=== PATIENT | male | born 1945 | race Caucasian/White ===

== ENCOUNTER 2018-12-13 14:14 | Emergency (ER) | payer OTHER, MEDICARE ==
[~2018-12-13] VITALS: Ht 170.2 cm; Wt 61.2 kg
[~2018-12-13 14:14] MED LIST: ASP81TEC PO; ATEN25TA PO; ATOR40TA PO; HYDR-3714 PO; KCL10CCR PO; MECL-106 PO; MULT1TAB34 PO; OMEG1CAP26 PO; folic acid
--- OUTSIDE RECORDS SUMMARY | 2018-12-13 14:21 | XMS REPORT | CCD ---
Author Author [facility]na Yen Organization [facility] Address [address] [place] [address] Phone Care Team Providers Care Rn Access Name Role Phone PP Unavailable CCM Unavailable Summary Purpose Interface Exchange Insurance Providers Payer name Policy type / Coverage type Covered alliance party ID Effective Begin Date Effective End Date WPS Medicare Part B Medicare Part B [id number] 2018 Unknown [employer] Medicare Part B [id number] Unknown Family history Daughter Diagnosis Age At Onset defect Unknown Brother Diagnosis Age At Onset Hyperlipidemia Unknown Mother Diagnosis Age At Onset Heart Attack Unknown Arthritis Unknown Father Diagnosis Age At Onset Hyperlipidemia Unknown Social History Social History Element Codes Description Effective Dates Marital status Unknown Maryann 02/23/2018 Number of children Unknown 3 11/24/[address]: 5380424 Quit over 10 years ago 200411/24/2014 Allergies, Adverse Reactions, Alerts Substance Reaction Codes Entered Date Inactivated Date Status * NO KNOWN DRUG ALLERGIES Unknown 11/24/2014 No Inactive Date Active Past Medical History Illness Codes Condition Status Onset Date Resolved Date Chronic mucoid otitis media, right ear ICD-9: 381.20 ICD-10: H65.31 Active 02/23/2018 Unknown Essential (primary) hypertension ICD-9: 401.9 ICD-10: I10 Active 12/06/2015 Unknown Mixed hyperlipidemia ICD- 9: 272.2 ICD-10: E78.2 Active 12/06/2015 Unknown Other allergic rhinitis ICD-9: 477.8 ICD-10: J30.89 Active 08/14/2017 Unknown Occlusion and stenosis of bilateral carotid arteries ICD-9: 433.10 ICD-10: I65.23 Active 12/06/2015 Unknown Abnormal weight loss ICD- 9: 783.21 ICD-10: R63.4 Active 05/24/2015 Unknown Elevated prostate specific antigen [PSA] ICD-9: 790.93 ICD-10: R97.2 Active 05/24/2015 Unknown Hypertension Unknown Active 11/24/2014 Unknown ESSENTIAL HYPERTENSION ICD-9: 401.9 Active 11/23/2014 Unknown Routine medical exam ICD- 9: V70.0 Active 11/23/2014 Unknown Problems Condition Codes Effective Dates Condition Status Chronic mucoid otitis media, right ear ICD-9: 381.20 ICD-10: H65.31 02/23/2018 Active Essential (primary) hypertension ICD-9: 401.9 ICD-10: I10 12/06/2015 Active Mixed hyperlipidemia ICD- 9: 272.2 ICD-10: E78.2 12/06/2015 Active Other allergic rhinitis ICD-9: 477.8 ICD-10: J30.89 08/14/2017 Active Occlusion and stenosis of bilateral carotid arteries ICD-9: 433.10 ICD-10: I65.23 12/06/2015 Active Abnormal weight loss ICD- 9: 783.21 ICD-10: R63.4 05/24/2015 Active Elevated prostate specific antigen [PSA] ICD-9: 790.93 ICD-10: R97.2 05/24/2015 Active Hypertension Unknown 11/24/2014 Active ESSENTIAL HYPERTENSION ICD-9: 401.9 11/23/2014 Active Routine medical exam ICD- 9: V70.0 11/23/2014 Active Medications Medication Codes Instructions Start Date Stop Date Status Fill Instructions folic acid 1 mg tablet RxNorm: 403451 TAKE 1 TABLET EVERY DAY 11/24/2018 11/18/2019 Active cefdinir 300 mg capsule RxNorm: 285910 1 Capsule(s) PO BID 08/24/2018 09/02/2018 Inactive Lipitor 40 mg tablet RxNorm: 826721 TAKE 1 TABLET EVERY DAY 04/29/2018 04/23/2019 Active aspirin 81 mg tablet RxNorm: 250850 2 Tablet(s) PO daily 02/23/2018 No Stop Date Active Fish Oil 1,000 mg capsule RxNorm: 1 Capsule(s) PO BID 02/23/2018 No Stop Date Active Augmentin 875 mg-125 mg tablet RxNorm: 267360 1 Tablet(s) PO BID 02/23/2018 03/01/2018 Inactive Zyrtec 10 mg tablet RxNorm: 0188841 1 Tablet(s) PO daily 02/23/2018 03/24/2018 Inactive Protonix 40 mg tablet,delayed release RxNorm: 495206 TAKE 1 TABLET EVERY DAY 02/15/2018 02/09/2019 Active metoprolol succinate ER 50 mg tablet,extended release 24 hr RxNorm: 460755 TAKE 1 TABLET EVERY DAY 02/15/2018 02/09/2019 Active lisinopril 5 mg tablet RxNorm: 607846 TAKE 1 TABLET EVERY DAY 02/15/2018 02/09/2019 Active folic acid 1 mg tablet RxNorm: 386243 TAKE 1 TABLET EVERY DAY 02/08/2018 11/23/2018 Inactive Keflex 500 mg capsule RxNorm: 105525 1 Capsule(s) PO TID 09/21/2017 09/27/2017 Inactive Flonase Allergy Relief 50 mcg/actuation nasal spray,suspension RxNorm: 3639759 2 [place] NASAL daily 09/21/2017 10/04/2017 Inactive Keflex 500 mg capsule RxNorm: 822332 1 Capsule(s) PO TID 09/21/2017 09/20/2017 Inactive Flonase Allergy Relief 50 mcg/actuation nasal spray,suspension RxNorm: 4483106 2 [place] NASAL daily 09/21/2017 09/20/2017 Inactive Lipitor 40 mg tablet RxNorm: 897404 TAKE 1 TABLET EVERY DAY 03/23/2017 03/17/2018 Inactive lisinopril 5 mg tablet RxNorm: 421114 TAKE 1 TABLET EVERY DAY 01/22/2017 01/16/2018 Inactive Protonix 40 mg tablet,delayed release RxNorm: 979398 TAKE 1 TABLET EVERY DAY 01/22/2017 01/16/2018 Inactive metoprolol succinate ER 50 mg tablet,extended release 24 hr RxNorm: 238139 TAKE 1 TABLET EVERY DAY 01/22/2017 01/16/2018 Inactive folic acid 1 mg tablet RxNorm: 054170 TAKE 1 TABLET EVERY DAY 08/22/2016 08/16/2017 Inactive metoprolol succinate ER 50 mg tablet,extended release 24 hr RxNorm: 597446 1 Tablet(s) PO daily 03/17/2016 01/21/2017 Inactive Lipitor 40 mg tablet RxNorm: 280669 1 Tablet(s) PO daily 03/17/2016 03/11/2017 Inactive lisinopril 5 mg tablet RxNorm: 761262 1 Tablet(s) PO daily 03/17/2016 01/21/2017 Inactive Protonix 40 mg tablet,delayed release RxNorm: 093130 1 Tablet(s) PO daily 03/17/2016 01/21/2017 Inactive folic acid 1 mg tablet RxNorm: 225714 1 Tablet(s) PO daily 08/15/2015 08/08/2016 Inactive Lipitor 40 mg tablet RxNorm: 424656 1 Tablet(s) PO daily 08/15/2015 03/16/2016 Inactive Lipitor 40 mg tablet RxNorm: 495580 1 Tablet(s) PO daily 07/30/2015 08/14/2015 Inactive folic acid 1 mg tablet RxNorm: 501533 1 Tablet(s) PO daily 07/30/2015 08/14/2015 Inactive metoprolol succinate ER 50 mg tablet,extended release 24 hr RxNorm: 079567 1 Tablet(s) PO daily 07/27/2015 03/16/2016 Inactive Protonix 40 mg tablet,delayed release RxNorm: 263423 1 Tablet(s) PO daily 07/27/2015 03/16/2016 Inactive lisinopril 5 mg tablet RxNorm: 225094 1 Tablet(s) PO daily 07/27/2015 03/16/2016 Inactive folic acid 1 mg tablet RxNorm: 220226 1 Tablet(s) PO daily 07/27/2015 07/29/2015 Inactive Protonix 40 mg tablet,delayed release RxNorm: 356629 1 Tablet(s) PO daily 03/12/2015 07/26/2015 Inactive metoprolol succinate ER 50 mg tablet,extended release 24 hr RxNorm: 851489 1 Tablet(s) PO daily 03/12/2015 07/26/2015 Inactive folic acid 1 mg tablet RxNorm: 075178 1 Tablet(s) PO daily 03/12/2015 07/26/2015 Inactive lisinopril 5 mg tablet RxNorm: 773995 1 Tablet(s) PO daily 03/12/2015 07/26/2015 Inactive Protonix 40 mg tablet,delayed release RxNorm: 955271 1 Tablet(s) PO daily 01/31/2015 03/11/2015 Inactive metoprolol succinate ER 50 mg tablet,extended release 24 hr RxNorm: 517141 1 Tablet(s) PO daily 01/31/2015 01/30/2015 Inactive lisinopril 5 mg tablet RxNorm: 466120 1 Tablet(s) PO daily 01/31/2015 03/11/2015 Inactive metoprolol succinate ER 50 mg tablet,extended release 24 hr RxNorm: 903271 1 Tablet(s) PO daily 01/31/2015 03/11/2015 Inactive folic acid 1 mg tablet RxNorm: 883874 1 Tablet(s) PO daily 01/31/2015 03/11/2015 Inactive Stress tablet RxNorm: oral No Start Date Active Co Q-10 50 mg capsule RxNorm: 350528 1 Capsule(s) PO BID No Start Date Active Fish Oil 1,000 mg capsule RxNorm: 1 Capsule(s) PO daily No Start Date 02/22/2018 Inactive Protonix 40 mg tablet,delayed release RxNorm: 013086 1 Tablet(s) PO daily No Start Date 01/30/2015 Inactive lisinopril 5 mg tablet RxNorm: 194438 1 Tablet(s) PO daily No Start Date 01/30/2015 Inactive aspirin 81 mg tablet RxNorm: 093497 1 Tablet(s) PO daily No Start Date 02/22/2018 Inactive folic acid 1 mg tablet RxNorm: 426059 1 Tablet(s) PO daily No Start Date 01/30/2015 Inactive metoprolol tartrate 50 mg tablet RxNorm: 181968 1 Tablet(s) PO daily No Start Date 01/31/2015 Inactive Lipitor 40 mg tablet RxNorm: 584703 1 Tablet(s) PO daily No Start Date 07/29/2015 Inactive Medication Administered No Medication Administered data Immunizations No Immunization data Assessments Condition Codes Effective Dates Essential (primary) hypertension ICD-10: I10 ICD-9: 401.9 08/24/2018 Mixed hyperlipidemia ICD-10: E78.2 ICD-9: 272.2 08/24/2018 Chronic mucoid otitis media, right ear ICD-10: H65.31 ICD-9: 381.20 08/24/2018 Other allergic rhinitis ICD-10: J30.89 ICD-9: 477.8 02/23/2018 Occlusion and stenosis of bilateral carotid arteries ICD-10: I65.23 ICD-9: 433.10 12/07/2015 Abnormal weight loss ICD-10: R63.4 ICD-9: 783.21 05/25/2015 Elevated prostate specific antigen [PSA] ICD-10: R97.2 ICD-9: 790.93 05/25/2015 ESSENTIAL HYPERTENSION ICD-9: 401.9 11/24/2014 Routine medical exam ICD-9: V70.0 11/24/2014 Reason For Visit Reason For Visit Effective Dates Notes hypertension 08/24/2018 hypertension 02/23/2018 hypertension 08/14/2017 hypertension 12/18/2016 hypertension 06/13/2016 hypertension 12/07/2015 hypertension 05/25/2015 hypertension 11/24/2014 Results Observation Observation Code Item Item Code Result Date Cbc With Differential Ord2 WBC 6.07 K/ul 02/23/2018 Cbc With Differential Ord2 RBC 4.35 M/ul 02/23/2018 Cbc With Differential Ord2 HGB 13.6 g/dl 02/23/2018 Cbc With Differential Ord2 HCT 41.2 % 02/23/2018 Cbc With Differential Ord2 Neut% 60.6 % 02/23/2018 Cbc With Differential Ord2 MCV 94.7 fl 02/23/2018 Cbc With Differential Ord2 Lymph% 28.2 % 02/23/2018 Cbc With Differential Ord2 MCH 31.3 pg 02/23/2018 Cbc With Differential Ord2 [place]% 8.9 % 02/23/2018 Cbc With Differential Ord2 MCHC 33.0 pg 02/23/2018 Cbc With Differential Ord2 Eos% 2.1 % 02/23/2018 Cbc With Differential Ord2 PLT 160 K/ul 02/23/2018 Cbc With Differential Ord2 Baso% 0.2 % 02/23/2018 Cbc With Differential Ord2 RDW 13.6 % 02/23/2018 Cbc With Differential Ord2 Neut ABS# 3.68 K/ul 02/23/2018 Cbc With Differential Ord2 Lymph ABS# 1.71 K/ul 02/23/2018 Cbc With Differential Ord2 [place] ABS# 0.5 K/ul 02/23/2018 Cbc With Differential Ord2 Eos ABS# 0.1 K/ul 02/23/2018 Cbc With Differential Ord2 Baso ABS# 0.0 K/ul 02/23/2018 Tsh Ord6 TSH (3rd IS) 2.67 uIU/mL 02/23/2018 Lipid Ord30 CHOL 131 mg/dL 02/23/2018 Lipid Ord30 HDL 56.0 mg/dl 02/23/2018 Lipid Ord30 TRIG 67 mg/dL 02/23/2018 Lipid Ord30 LDL 62 mg/dL 02/23/2018 Lipid Ord30 C/HDL 2.3 Ratio 02/23/2018 Comp Metabolic Kxl242 NA 141 mEq/L 02/23/2018 Comp Metabolic Qjn607 K 4.6 mEq/L 02/23/2018 Comp Metabolic Dco286 CL 105 mEq/L 02/23/2018 Comp Metabolic Bmf809 CO2 27.0 mEq/L 02/23/2018 Comp Metabolic Hli615 ANION GAP 14 02/23/2018 Comp Metabolic Xad009 GLUCOSE 90 mg/dL 02/23/2018 Comp Metabolic Dlu498 Creat 1.5 mg/dL 02/23/2018 Comp Metabolic Ikb969 eGFR 51 ml/min/1.73m2 02/23/2018 Comp Metabolic Yrf305 BUN 31 mg/dL 02/23/2018 Comp Metabolic Zzo962 B/C Ratio 21.4 Ratio 02/23/2018 Comp Metabolic Fnj982 CALCIUM 9.6 mg/dL 02/23/2018 Comp Metabolic Dgg536 ALK PHOS 62 U/L 02/23/2018 Comp Metabolic Wpk800 AST(SGOT) 20 U/L 02/23/2018 Comp Metabolic Xeg084 ALT(SGPT) 17 U/L 02/23/2018 Comp Metabolic Yza942 BILI T 0.8 mg/dL 02/23/2018 Comp Metabolic Usy303 ALBUMIN 4.3 g/dL 02/23/2018 Comp Metabolic Tvh343 TPRO 6.4 g/dL 02/23/2018 Comp Metabolic Qmv544 GLOB 2.1 g/dL 02/23/2018 Comp Metabolic Qvm926 A/G Ratio 2.0 Ratio 02/23/2018 Comp Metabolic Kmh208 Osmo 287 mOsmo 02/23/2018 Lipid Ord30 CHOL 118 mg/dL 12/18/2016 Lipid Ord30 HDL 52.0 mg/dl 12/18/2016 Lipid Ord30 TRIG 64 mg/dL 12/18/2016 Lipid Ord30 LDL 53 mg/dL 12/18/2016 Lipid Ord30 C/HDL 2.3 Ratio 12/18/2016 Cbc With Differential Ord2 WBC 6.46 K/ul 12/18/2016 Cbc With Differential Ord2 RBC 4.28 M/ul 12/18/2016 Cbc With Differential Ord2 HGB 13.7 g/dl 12/18/2016 Cbc With Differential Ord2 HCT 40.2 % 12/18/2016 Cbc With Differential Ord2 Neut% 60.8 % 12/18/2016 Cbc With Differential Ord2 MCV 93.9 fl 12/18/2016 Cbc With Differential Ord2 Lymph% 27.6 % 12/18/2016 Cbc With Differential Ord2 MCH 32.0 pg 12/18/2016 Cbc With Differential Ord2 [place]% 7.9 % 12/18/2016 Cbc With Differential Ord2 MCHC 34.1 pg 12/18/2016 Cbc With Differential Ord2 Eos% 3.4 % 12/18/2016 Cbc With Differential Ord2 PLT 156 K/ul 12/18/2016 Cbc With Differential Ord2 Baso% 0.3 % 12/18/2016 Cbc With Differential Ord2 RDW 13.6 % 12/18/2016 Cbc With Differential Ord2 Neut ABS# 3.93 K/ul 12/18/2016 Cbc With Differential Ord2 Lymph ABS# 1.78 K/ul 12/18/2016 Cbc With Differential Ord2 [place] ABS# 0.5 K/ul 12/18/2016 Cbc With Differential Ord2 Eos ABS# 0.2 K/ul 12/18/2016 Cbc With Differential Ord2 Baso ABS# 0.0 K/ul 12/18/2016 Comp Metabolic Vbe795 NA 140 mEq/L 12/18/2016 Comp Metabolic Ryh511 K 4.4 mEq/L 12/18/2016 Comp Metabolic Clz553 CL 105 mEq/L 12/18/2016 Comp Metabolic Ksh130 CO2 27.0 mEq/L 12/18/2016 Comp Metabolic Xfi066 ANION GAP 12 12/18/2016 Comp Metabolic Mwh934 GLUCOSE 89 mg/dL 12/18/2016 Comp Metabolic Etg873 Creat 1.4 mg/dL 12/18/2016 Comp Metabolic Cbt040 eGFR 51 ml/min/1.73m2 12/18/2016 Comp Metabolic New794 BUN 24 mg/dL 12/18/2016 Comp Metabolic Wri033 B/C Ratio 16.7 Ratio 12/18/2016 Comp Metabolic Vct605 CALCIUM 9.3 mg/dL 12/18/2016 Comp Metabolic Jzp575 ALK PHOS 59 U/L 12/18/2016 Comp Metabolic Rlb554 AST(SGOT) 18 U/L 12/18/2016 Comp Metabolic Rds994 ALT(SGPT) 15 U/L 12/18/2016 Comp Metabolic Fiy719 BILI T 0.8 mg/dL 12/18/2016 Comp Metabolic Zly414 ALBUMIN 4.0 g/dL 12/18/2016 Comp Metabolic Iow914 TPRO 6.2 g/dL 12/18/2016 Comp Metabolic Wiy891 GLOB 2.2 g/dL 12/18/2016 Comp Metabolic Wkj711 A/G Ratio 1.8 Ratio 12/18/2016 Comp Metabolic Zda946 Osmo 283 mOsmo 12/18/2016 Tsh Ord6 hTSH II 1.98 uIU/mL 12/18/2016 Comp Metabolic Pwi878 NA 139 mEq/L 06/13/2016 Comp Metabolic Jll511 K 4.5 mEq/L 06/13/2016 Comp Metabolic Gkr206 CL 104 mEq/L 06/13/2016 Comp Metabolic Xix143 CO2 29.0 mEq/L 06/13/2016 Comp Metabolic Vdf495 ANION GAP 11 06/13/2016 Comp Metabolic Cst937 GLUCOSE 92 mg/dL 06/13/2016 Comp Metabolic Mlj810 Creat 1.3 mg/dL 06/13/2016 Comp Metabolic Mgg617 eGFR 58 ml/min/1.73m2 06/13/2016 Comp Metabolic Gnm828 BUN 24 mg/dL 06/13/2016 Comp Metabolic Ack621 B/C Ratio 18.6 Ratio 06/13/2016 Comp Metabolic Idw683 CALCIUM 9.9 mg/dL 06/13/2016 Comp Metabolic Lpa766 ALK PHOS 65 U/L 06/13/2016 Comp Metabolic Heo892 AST(SGOT) 19 U/L 06/13/2016 Comp Metabolic Wgd550 ALT(SGPT) 19 U/L 06/13/2016 Comp Metabolic Trv085 BILI T 0.7 mg/dL 06/13/2016 Comp Metabolic Gyv553 ALBUMIN 4.5 g/dL 06/13/2016 Comp Metabolic Jnc443 TPRO 7.0 g/dL 06/13/2016 Comp Metabolic Dor300 GLOB 2.5 g/dL 06/13/2016 Comp Metabolic Xib379 A/G Ratio 1.8 Ratio 06/13/2016 Comp Metabolic Nqy987 Osmo 281 mOsmo 06/13/2016 Cbc With Differential Ord2 WBC 6.59 K/ul 06/13/2016 Cbc With Differential Ord2 RBC 4.52 M/ul 06/13/2016 Cbc With Differential Ord2 HGB 14.3 g/dl 06/13/2016 Cbc With Differential Ord2 HCT 42.5 % 06/13/2016 Cbc With Differential Ord2 Neut% 58.6 % 06/13/2016 Cbc With Differential Ord2 MCV 94.0 fl 06/13/2016 Cbc With Differential Ord2 Lymph% 29.3 % 06/13/2016 Cbc With Differential Ord2 MCH 31.6 pg 06/13/2016 Cbc With Differential Ord2 [place]% 8.8 % 06/13/2016 Cbc With Differential Ord2 MCHC 33.6 pg 06/13/2016 Cbc With Differential Ord2 Eos% 3.0 % 06/13/2016 Cbc With Differential Ord2 PLT 161 K/ul 06/13/2016 Cbc With Differential Ord2 Baso% 0.3 % 06/13/2016 Cbc With Differential Ord2 RDW 13.6 % 06/13/2016 Cbc With Differential Ord2 Neut ABS# 3.86 K/ul 06/13/2016 Cbc With Differential Ord2 Lymph ABS# 1.93 K/ul 06/13/2016 Cbc With Differential Ord2 [place] ABS# 0.6 K/ul 06/13/2016 Cbc With Differential Ord2 Eos ABS# 0.2 K/ul 06/13/2016 Cbc With Differential Ord2 Baso ABS# 0.0 K/ul 06/13/2016 Lipid Ord30 CHOL 119 mg/dL 06/13/2016 Lipid Ord30 HDL 59.0 mg/dl 06/13/2016 Lipid Ord30 TRIG 74 mg/dL 06/13/2016 Lipid Ord30 LDL 45 mg/dL 06/13/2016 Lipid Ord30 C/HDL 2.0 Ratio 06/13/2016 Tsh Ord6 hTSH II 2.38 uIU/mL 06/13/2016 Cbc With Differential Ord2 WBC 5.57 K/ul 12/07/2015 Cbc With Differential Ord2 RBC 4.69 M/ul 12/07/2015 Cbc With Differential Ord2 HGB 14.6 g/dl 12/07/2015 Cbc With Differential Ord2 HCT 43.9 % 12/07/2015 Cbc With Differential Ord2 Neut% 60.6 % 12/07/2015 Cbc With Differential Ord2 MCV 93.6 fl 12/07/2015 Cbc With Differential Ord2 Lymph% 29.3 % 12/07/2015 Cbc With Differential Ord2 MCH 31.1 pg 12/07/2015 Cbc With Differential Ord2 [place]% 7.7 % 12/07/2015 Cbc With Differential Ord2 MCHC 33.3 pg 12/07/2015 Cbc With Differential Ord2 Eos% 2.2 % 12/07/2015 Cbc With Differential Ord2 PLT 167 K/ul 12/07/2015 Cbc With Differential Ord2 Baso% 0.2 % 12/07/2015 Cbc With Differential Ord2 RDW 13.7 % 12/07/2015 Cbc With Differential Ord2 Neut ABS# 3.38 K/ul 12/07/2015 Cbc With Differential Ord2 Lymph ABS# 1.63 K/ul 12/07/2015 Cbc With Differential Ord2 [place] ABS# 0.4 K/ul 12/07/2015 Cbc With Differential Ord2 Eos ABS# 0.1 K/ul 12/07/2015 Cbc With Differential Ord2 Baso ABS# 0.0 K/ul 12/07/2015 Tsh Ord6 hTSH II 3.01 uIU/mL 12/07/2015 Lipid Ord30 CHOL 117 mg/dL 12/07/2015 Lipid Ord30 HDL 53.0 mg/dl 12/07/2015 Lipid Ord30 TRIG 68 mg/dL 12/07/2015 Lipid Ord30 LDL 50 mg/dL 12/07/2015 Lipid Ord30 C/HDL 2.2 Ratio 12/07/2015 Comp Metabolic But347 NA 140 mEq/L 12/07/2015 Comp Metabolic Wfc268 K 4.5 mEq/L 12/07/2015 Comp Metabolic Krk649 CL 106 mEq/L 12/07/2015 Comp Metabolic Gtg086 CO2 27.0 mEq/L 12/07/2015 Comp Metabolic Ojg920 ANION GAP 12 12/07/2015 Comp Metabolic Gbf781 GLUCOSE 92 mg/dL 12/07/2015 Comp Metabolic Gme643 Creat 1.3 mg/dL 12/07/2015 Comp Metabolic Uxo550 eGFR 57 ml/min/1.73m2 12/07/2015 Comp Metabolic Ekf863 BUN 28 mg/dL 12/07/2015 Comp Metabolic Brl807 B/C Ratio 21.2 Ratio 12/07/2015 Comp Metabolic Pcc791 CALCIUM 10.0 mg/dL 12/07/2015 Comp Metabolic Oqs124 ALK PHOS 58 U/L 12/07/2015 Comp Metabolic Ngl746 AST(SGOT) 19 U/L 12/07/2015 Comp Metabolic Aay115 ALT(SGPT) 15 U/L 12/07/2015 Comp Metabolic Wnt594 BILI T 0.9 mg/dL 12/07/2015 Comp Metabolic Lva288 ALBUMIN 4.3 g/dL 12/07/2015 Comp Metabolic Afk468 TPRO 6.8 g/dL 12/07/2015 Comp Metabolic Guq217 GLOB 2.5 g/dL 12/07/2015 Comp Metabolic Gbw858 A/G Ratio 1.8 Ratio 12/07/2015 Comp Metabolic Iim860 Osmo 285 mOsmo 12/07/2015 Cbc With Differential Ord2 WBC 5.44 K/ul 07/26/2015 Cbc With Differential Ord2 RBC 4.79 M/ul 07/26/2015 Cbc With Differential Ord2 HGB 14.8 g/dl 07/26/2015 Cbc With Differential Ord2 HCT 44.5 % 07/26/2015 Cbc With Differential Ord2 Neut% 57.9 % 07/26/2015 Cbc With Differential Ord2 MCV 92.9 fl 07/26/2015 Cbc With Differential Ord2 Lymph% 30.5 % 07/26/2015 Cbc With Differential Ord2 MCH 30.9 pg 07/26/2015 Cbc With Differential Ord2 [place]% 8.6 % 07/26/2015 Cbc With Differential Ord2 MCHC 33.3 pg 07/26/2015 Cbc With Differential Ord2 Eos% 2.8 % 07/26/2015 Cbc With Differential Ord2 PLT 163 K/ul 07/26/2015 Cbc With Differential Ord2 Baso% 0.2 % 07/26/2015 Cbc With Differential Ord2 RDW 13.9 % 07/26/2015 Cbc With Differential Ord2 Neut ABS# 3.15 K/ul 07/26/2015 Cbc With Differential Ord2 Lymph ABS# 1.66 K/ul 07/26/2015 Cbc With Differential Ord2 [place] ABS# 0.5 K/ul 07/26/2015 Cbc With Differential Ord2 Eos ABS# 0.2 K/ul 07/26/2015 Cbc With Differential Ord2 Baso ABS# 0.0 K/ul 07/26/2015 Cbc With Differential Ord2 New Analyzer Notice Please note new ref ranges starting 05-16-2015 due to implemntation of new five part differential hematolgy analyzer. 07/26/2015 Lipid Ord30 CHOL 120 mg/dL 05/25/2015 Lipid Ord30 HDL 48.0 mg/dl 05/25/2015 Lipid Ord30 TRIG 61 mg/dL 05/25/2015 Lipid Ord30 LDL 60 mg/dL 05/25/2015 Lipid Ord30 C/HDL 2.5 Ratio 05/25/2015 Tsh Ord6 hTSH II 3.01 uIU/mL 05/25/2015 Comp Metabolic Nht280 NA 140 mEq/L 05/25/2015 Comp Metabolic Bte785 K 4.3 mEq/L 05/25/2015 Comp Metabolic Lpk604 CL 104 mEq/L 05/25/2015 Comp Metabolic Wbh546 CO2 26.0 mEq/L 05/25/2015 Comp Metabolic Jat924 ANION GAP 14 05/25/2015 Comp Metabolic Aqq243 GLUCOSE 77 mg/dL 05/25/2015 Comp Metabolic Lky537 Creat 1.2 mg/dL 05/25/2015 Comp Metabolic Lrw532 eGFR 62 ml/min/1.73m2 05/25/2015 Comp Metabolic Uhu463 BUN 23 mg/dL 05/25/2015 Comp Metabolic Ork816 B/C Ratio 18.7 Ratio 05/25/2015 Comp Metabolic Wsc979 CALCIUM 9.4 mg/dL 05/25/2015 Comp Metabolic Ohp440 ALK PHOS 67 U/L 05/25/2015 Comp Metabolic Vmu468 AST(SGOT) 20 U/L 05/25/2015 Comp Metabolic Vih046 ALT(SGPT) 20 U/L 05/25/2015 Comp Metabolic Pbi036 BILI T 0.7 mg/dL 05/25/2015 Comp Metabolic Vxv994 ALBUMIN 4.2 g/dL 05/25/2015 Comp Metabolic Ksf491 TPRO 6.5 g/dL 05/25/2015 Comp Metabolic Gyb449 GLOB 2.3 g/dL 05/25/2015 Comp Metabolic Zqx558 A/G Ratio 1.8 Ratio 05/25/2015 Comp Metabolic Pwu299 Osmo 282 mOsmo 05/25/2015 Cbc With Differential Ord2 WBC 5.72 K/ul 05/25/2015 Cbc With Differential Ord2 RBC 4.43 M/ul 05/25/2015 Cbc With Differential Ord2 HGB 13.7 g/dl 05/25/2015 Cbc With Differential Ord2 HCT 41.3 % 05/25/2015 Cbc With Differential Ord2 Neut% 60.3 % 05/25/2015 Cbc With Differential Ord2 MCV 93.2 fl 05/25/2015 Cbc With Differential Ord2 Lymph% 29.7 % 05/25/2015 Cbc With Differential Ord2 MCH 30.9 pg 05/25/2015 Cbc With Differential Ord2 [place]% 7.2 % 05/25/2015 Cbc With Differential Ord2 MCHC 33.2 pg 05/25/2015 Cbc With Differential Ord2 Eos% 2.3 % 05/25/2015 Cbc With Differential Ord2 PLT 175 K/ul 05/25/2015 Cbc With Differential Ord2 Baso% 0.5 % 05/25/2015 Cbc With Differential Ord2 RDW 14.0 % 05/25/2015 Cbc With Differential Ord2 Neut ABS# 3.45 K/ul 05/25/2015 Cbc With Differential Ord2 Lymph ABS# 1.70 K/ul 05/25/2015 Cbc With Differential Ord2 [place] ABS# 0.4 K/ul 05/25/2015 Cbc With Differential Ord2 Eos ABS# 0.1 K/ul 05/25/2015 Cbc With Differential Ord2 Baso ABS# 0.0 K/ul 05/25/2015 Cbc With Differential Ord2 New Analyzer Notice Please note new ref ranges starting 05-16-2015 due to implemntation of new five part differential hematolgy analyzer. 05/25/2015 Review of Systems System Result Effective Dates Constitutional No recent illness 08/24/2018 Constitutional No anorexia 08/24/2018 Constitutional No night sweats 08/24/2018 Constitutional No chills 08/24/2018 Constitutional No diaphoresis 08/24/2018 Constitutional No fatigue 08/24/2018 Constitutional No fever 08/24/2018 Constitutional No insomnia 08/24/2018 Constitutional No malaise 08/24/2018 Constitutional No weight loss 08/24/2018 Constitutional No weight gain 08/24/2018 Eyes No eye discharge 08/24/2018 Eyes No eye erythema 08/24/2018 Ears/Nose/Throat/Neck No dizziness 08/24/2018 Ears/Nose/Throat/Neck No headache 08/24/2018 Ears/Nose/Throat/Neck nasal allergies 08/24/2018 Ears/Nose/Throat/Neck otalgia 08/24/2018 Cardiovascular No chest pain/pressure 08/24/2018 Cardiovascular No dyspnea 08/24/2018 Cardiovascular No edema 08/24/2018 Respiratory No productive sputum 08/24/2018 Respiratory No chest congestion 08/24/2018 Respiratory cough 08/24/2018 Gastrointestinal No abdominal pain 08/24/2018 Gastrointestinal No constipation 08/24/2018 Gastrointestinal No diarrhea 08/24/2018 Genitourinary/Nephrology No dysuria 08/24/2018 Musculoskeletal arthralgia(s) 08/24/2018 Musculoskeletal No joint complaint 08/24/2018 Dermatologic No rash 08/24/2018 Dermatologic No sores 08/24/2018 Neurologic No alteration of consciousness 08/24/2018 Psychiatric No anxiety 08/24/2018 Psychiatric No depression 08/24/2018 Endocrine No dry or coarse skin 08/24/2018 Constitutional No recent illness 02/23/2018 Constitutional No anorexia 02/23/2018 Constitutional No night sweats 02/23/2018 Constitutional No chills 02/23/2018 Constitutional No diaphoresis 02/23/2018 Constitutional No fatigue 02/23/2018 Constitutional No fever 02/23/2018 Constitutional No insomnia 02/23/2018 Constitutional No malaise 02/23/2018 Constitutional No weight loss 02/23/2018 Constitutional No weight gain 02/23/2018 Eyes No eye discharge 02/23/2018 Eyes No eye erythema 02/23/2018 Ears/Nose/Throat/Neck No dizziness 02/23/2018 Ears/Nose/Throat/Neck No headache 02/23/2018 Ears/Nose/Throat/Neck nasal allergies 02/23/2018 Ears/Nose/Throat/Neck otalgia 02/23/2018 Cardiovascular No chest pain/pressure 02/23/2018 Cardiovascular No dyspnea 02/23/2018 Cardiovascular No edema 02/23/2018 Respiratory No productive sputum 02/23/2018 Respiratory No chest congestion 02/23/2018 Gastrointestinal No abdominal pain 02/23/2018 Gastrointestinal No constipation 02/23/2018 Gastrointestinal No diarrhea 02/23/2018 Genitourinary/Nephrology No dysuria 02/23/2018 Musculoskeletal No joint complaint 02/23/2018 Dermatologic No rash 02/23/2018 Dermatologic No sores 02/23/2018 Neurologic No alteration of consciousness 02/23/2018 Psychiatric No anxiety 02/23/2018 Psychiatric No depression 02/23/2018 Endocrine No dry or coarse skin 02/23/2018 Respiratory cough 02/23/2018 Musculoskeletal arthralgia(s) 02/23/2018 Constitutional No recent illness 08/14/2017 Constitutional No anorexia 08/14/2017 Constitutional No night sweats 08/14/2017 Constitutional No chills 08/14/2017 Constitutional No diaphoresis 08/14/2017 Constitutional No fatigue 08/14/2017 Constitutional No fever 08/14/2017 Constitutional No insomnia 08/14/2017 Constitutional No malaise 08/14/2017 Constitutional No weight loss 08/14/2017 Constitutional No weight gain 08/14/2017 Eyes No eye discharge 08/14/2017 Eyes No eye erythema 08/14/2017 Ears/Nose/Throat/Neck No dizziness 08/14/2017 Ears/Nose/Throat/Neck No headache 08/14/2017 Cardiovascular No chest pain/pressure 08/14/2017 Cardiovascular No dyspnea 08/14/2017 Cardiovascular No edema 08/14/2017 Respiratory No productive sputum 08/14/2017 Respiratory No chest congestion 08/14/2017 Gastrointestinal No abdominal pain 08/14/2017 Gastrointestinal No constipation 08/14/2017 Gastrointestinal No diarrhea 08/14/2017 Genitourinary/Nephrology No dysuria 08/14/2017 Musculoskeletal No joint complaint 08/14/2017 Dermatologic No rash 08/14/2017 Dermatologic No sores 08/14/2017 Neurologic No alteration of consciousness 08/14/2017 Psychiatric No anxiety 08/14/2017 Psychiatric No depression 08/14/2017 Endocrine No dry or coarse skin 08/14/2017 Ears/Nose/Throat/Neck nasal allergies 08/14/2017 Ears/Nose/Throat/Neck otalgia 08/14/2017 Constitutional No recent illness 12/18/2016 Constitutional No anorexia 12/18/2016 Constitutional No night sweats 12/18/2016 Constitutional No chills 12/18/2016 Constitutional No diaphoresis 12/18/2016 Constitutional No fatigue 12/18/2016 Constitutional No fever 12/18/2016 Constitutional No insomnia 12/18/2016 Constitutional No malaise 12/18/2016 Constitutional No weight loss 12/18/2016 Constitutional No weight gain 12/18/2016 Eyes No eye discharge 12/18/2016 Eyes No eye erythema 12/18/2016 Ears/Nose/Throat/Neck No dizziness 12/18/2016 Ears/Nose/Throat/Neck No headache 12/18/2016 Cardiovascular No chest pain/pressure 12/18/2016 Cardiovascular No dyspnea 12/18/2016 Cardiovascular No edema 12/18/2016 Respiratory No productive sputum 12/18/2016 Respiratory No chest congestion 12/18/2016 Gastrointestinal No abdominal pain 12/18/2016 Gastrointestinal No constipation 12/18/2016 Gastrointestinal No diarrhea 12/18/2016 Genitourinary/Nephrology No dysuria 12/18/2016 Musculoskeletal No joint complaint 12/18/2016 Dermatologic No rash 12/18/2016 Dermatologic No sores 12/18/2016 Neurologic No alteration of consciousness 12/18/2016 Psychiatric No anxiety 12/18/2016 Psychiatric No depression 12/18/2016 Endocrine No dry or coarse skin 12/18/2016 Constitutional No recent illness 06/13/2016 Constitutional No anorexia 06/13/2016 Constitutional No night sweats 06/13/2016 Constitutional No chills 06/13/2016 Constitutional No diaphoresis 06/13/2016 Constitutional No fatigue 06/13/2016 Constitutional No fever 06/13/2016 Constitutional No insomnia 06/13/2016 Constitutional No malaise 06/13/2016 Constitutional No weight loss 06/13/2016 Constitutional No weight gain 06/13/2016 Eyes No eye discharge 06/13/2016 Eyes No eye erythema 06/13/2016 Ears/Nose/Throat/Neck No dizziness 06/13/2016 Ears/Nose/Throat/Neck No headache 06/13/2016 Cardiovascular No chest pain/pressure 06/13/2016 Cardiovascular No dyspnea 06/13/2016 Cardiovascular No edema 06/13/2016 Respiratory No productive sputum 06/13/2016 Respiratory No chest congestion 06/13/2016 Gastrointestinal No abdominal pain 06/13/2016 Gastrointestinal No constipation 06/13/2016 Gastrointestinal No diarrhea 06/13/2016 Genitourinary/Nephrology No dysuria 06/13/2016 Musculoskeletal No joint complaint 06/13/2016 Dermatologic No rash 06/13/2016 Dermatologic No sores 06/13/2016 Neurologic No alteration of consciousness 06/13/2016 Psychiatric No anxiety 06/13/2016 Psychiatric No depression 06/13/2016 Endocrine No dry or coarse skin 06/13/2016 Constitutional No recent illness 12/07/2015 Constitutional No anorexia 12/07/2015 Constitutional No night sweats 12/07/2015 Constitutional No chills 12/07/2015 Constitutional No fatigue 12/07/2015 Constitutional No diaphoresis 12/07/2015 Constitutional No fever 12/07/2015 Constitutional No insomnia 12/07/2015 Constitutional No malaise 12/07/2015 Constitutional No weight loss 12/07/2015 Constitutional No weight gain 12/07/2015 Eyes No eye discharge 12/07/2015 Eyes No eye erythema 12/07/2015 Ears/Nose/Throat/Neck No dizziness 12/07/2015 Ears/Nose/Throat/Neck No headache 12/07/2015 Cardiovascular No chest pain/pressure 12/07/2015 Cardiovascular No dyspnea 12/07/2015 Cardiovascular No edema 12/07/2015 Respiratory No productive sputum 12/07/2015 Respiratory No chest congestion 12/07/2015 Respiratory cough 12/07/2015 Gastrointestinal No abdominal pain 12/07/2015 Gastrointestinal No diarrhea 12/07/2015 Gastrointestinal No constipation 12/07/2015 Genitourinary/Nephrology No dysuria 12/07/2015 Musculoskeletal No joint complaint 12/07/2015 Dermatologic No rash 12/07/2015 Dermatologic No sores 12/07/2015 Neurologic No alteration of consciousness 12/07/2015 Psychiatric No depression 12/07/2015 Psychiatric No anxiety 12/07/2015 Endocrine No dry or coarse skin 12/07/2015 Constitutional recent illness 05/25/2015 Constitutional No anorexia 05/25/2015 Constitutional No night sweats 05/25/2015 Constitutional No chills 05/25/2015 Constitutional No diaphoresis 05/25/2015 Constitutional No fatigue 05/25/2015 Constitutional No fever 05/25/2015 Constitutional No insomnia 05/25/2015 Constitutional No malaise 05/25/2015 Constitutional No weight loss 05/25/2015 Constitutional No weight gain 05/25/2015 Constitutional No obesity 05/25/2015 Eyes No vision change 05/25/2015 Eyes blindness 05/25/2015 Ears/Nose/Throat/Neck No nasal discharge 05/25/2015 Ears/Nose/Throat/Neck No nasal allergies 05/25/2015 Ears/Nose/Throat/Neck No sore throat 05/25/2015 Ears/Nose/Throat/Neck No otitis media 05/25/2015 Ears/Nose/Throat/Neck No otalgia 05/25/2015 Cardiovascular No chest pain/pressure 05/25/2015 Respiratory No dyspnea 05/25/2015 Respiratory No dyspnea on exertion 05/25/2015 Respiratory No cough 05/25/2015 Respiratory No chest tightness 05/25/2015 Respiratory No chest congestion 05/25/2015 Respiratory No cigarette smoking 05/25/2015 Gastrointestinal No constipation 05/25/2015 Gastrointestinal No diarrhea 05/25/2015 Genitourinary/Nephrology No urinary incontinence 05/25/2015 Genitourinary/Nephrology No urinary frequency 05/25/2015 Genitourinary/Nephrology No urinary urgency 05/25/2015 Genitourinary/Nephrology No urinary retention/hesitancy 05/25/2015 Genitourinary/Nephrology No dysuria 05/25/2015 Musculoskeletal No joint complaint 05/25/2015 Musculoskeletal No muscle weakness 05/25/2015 Musculoskeletal No myalgias 05/25/2015 Dermatologic No sores 05/25/2015 Dermatologic No rash 05/25/2015 Psychiatric No depression 05/25/2015 Psychiatric No anxiety 05/25/2015 Constitutional No recent illness 11/24/2014 Constitutional No chills 11/24/2014 Constitutional No fatigue 11/24/2014 Constitutional No fever 11/24/2014 Constitutional No insomnia 11/24/2014 Constitutional No malaise 11/24/2014 Eyes No blindness 11/24/2014 Eyes No vision change 11/24/2014 Ears/Nose/Throat/Neck No dental pain 11/24/2014 Ears/Nose/Throat/Neck No dizziness 11/24/2014 Ears/Nose/Throat/Neck No dysphagia 11/24/2014 Ears/Nose/Throat/Neck No headache 11/24/2014 Ears/Nose/Throat/Neck No hearing loss 11/24/2014 Ears/Nose/Throat/Neck No nasal allergies 11/24/2014 Ears/Nose/Throat/Neck No sore throat 11/24/2014 Ears/Nose/Throat/Neck No postnasal drip 11/24/2014 Ears/Nose/Throat/Neck No sinus congestion 11/24/2014 Cardiovascular No chest pain/pressure 11/24/2014 Cardiovascular No dyspnea 11/24/2014 Cardiovascular No edema 11/24/2014 Cardiovascular No exercise intolerance 11/24/2014 Cardiovascular No fatigue 11/24/2014 Cardiovascular No near-syncope/dizziness 11/24/2014 Respiratory No chest tightness 11/24/2014 Respiratory No cough 11/24/2014 Respiratory No dyspnea 11/24/2014 Respiratory No pedal edema 11/24/2014 Gastrointestinal No abdominal pain 11/24/2014 Gastrointestinal No constipation 11/24/2014 Gastrointestinal No diarrhea 11/24/2014 Gastrointestinal No gastroesophageal reflux 11/24/2014 Gastrointestinal No nausea 11/24/2014 Gastrointestinal No vomiting 11/24/2014 Genitourinary/Nephrology No dysuria 11/24/2014 Genitourinary/Nephrology No nocturia 11/24/2014 Genitourinary/Nephrology No urinary incontinence 11/24/2014 Musculoskeletal No stiffness 11/24/2014 Musculoskeletal No swelling 11/24/2014 Musculoskeletal No muscle weakness 11/24/2014 Musculoskeletal No myalgias 11/24/2014 Dermatologic No rash 11/24/2014 Dermatologic No sores 11/24/2014 Dermatologic No scar 11/24/2014 Neurologic No dizziness 11/24/2014 Neurologic No headache 11/24/2014 Neurologic No neck pain 11/24/2014 Neurologic No syncope 11/24/2014 Psychiatric No anxiety 11/24/2014 Psychiatric No depression 11/24/2014 Physical Exam Exam Name System Name Item Name Status Result Effective Dates Notes Full Exam - General 1994 Constitutional general appearance Overall: well developed 08/24/2018 None Full Exam - General 1994 Constitutional general appearance Overall: in no acute distress 08/24/2018 None Full Exam - General 1994 Constitutional general appearance Overall: well nourished 08/24/2018 None Full Exam - General 1994 Eyes conjunctiva/eyelids Overall: conjunctiva clear 08/24/2018 None Full Exam - General 1994 Eyes conjunctiva/eyelids Overall: cornea clear 08/24/2018 None Full Exam - General 1994 Eyes conjunctiva/eyelids Overall: eyelids normal 08/24/2018 None Full Exam - General 1994 Eyes pupils and irises Overall: pupils equal, round, reactive to light and accomodation 08/24/2018 None Full Exam - General 1994 Ears/Nose/Throat external ear Overall: normal appearance 08/24/2018 None Full Exam - General 1994 Ears/Nose/Throat external ear Overall: no masses 08/24/2018 None Full Exam - General 1994 Ears/Nose/Throat external ear Overall: normal mastoids 08/24/2018 None Full Exam - General 1994 Ears/Nose/Throat external nose Overall: benign appearance 08/24/2018 None Full Exam - General 1994 Ears/Nose/Throat external nose Overall: no masses 08/24/2018 None Full Exam - General 1994 Ears/Nose/Throat external nose Overall: non-tender 08/24/2018 None Full Exam - General 1994 Ears/Nose/Throat otoscopic exam Overall: external auditory canals clear 08/24/2018 None Full Exam - General 1994 Ears/Nose/Throat otoscopic exam Overall: tympanic membranes clear 08/24/2018 None Full Exam - General 1994 Ears/Nose/Throat otoscopic exam Tympanic membrane: effusion 08/24/2018 None Full Exam - General 1995 Ears/Nose/Throat otoscopic exam Tympanic membrane: air-fluid level 08/24/2018 None Full Exam - General 1994 Ears/Nose/Throat lips/teeth/gingiva Overall: benign lips 08/24/2018 None Full Exam - General 1995 Ears/Nose/Throat lips/teeth/gingiva Overall: normal dentition 08/24/2018 None Full Exam - General 1994 Ears/Nose/Throat lips/teeth/gingiva Overall: benign gingiva 08/24/2018 None Full Exam - General 1994 Ears/Nose/Throat lips/teeth/gingiva Overall: no masses 08/24/2018 None Full Exam - General 1994 Ears/Nose/Throat oral cavity/pharynx/larynx Overall: oral mucosa clear 08/24/2018 None Full Exam - General 1994 Ears/Nose/Throat oral cavity/pharynx/larynx Overall: oropharyngeal mucosa clear 08/24/2018 None Full Exam - General 1994 Ears/Nose/Throat oral cavity/pharynx/larynx Overall: no masses 08/24/2018 None Full Exam - General 1994 Respiratory auscultation Overall: breath sounds clear bilaterally 08/24/2018 None Full Exam - General 1994 Respiratory respiratory effort/rhythm Overall: no retractions 08/24/2018 None Full Exam - General 1994 Respiratory respiratory effort/rhythm Overall: normal rate 08/24/2018 None Full Exam - General 1994 Cardiovascular extremities Overall: no clubbing 08/24/2018 None Full Exam - General 1994 Abdomen abdominal exam Overall: no tenderness 08/24/2018 None Full Exam - General 1994 Abdomen abdominal exam Overall: normal bowel sounds 08/24/2018 None Full Exam - General 1994 Musculoskeletal gait and station Overall: normal gait 08/24/2018 None Full Exam - General 1994 Musculoskeletal gait and station Overall: normal station 08/24/2018 None Full Exam - General 1994 Integument inspection of skin Overall: no rash, lesions 08/24/2018 None Full Exam - General 1994 Psychiatric orientation/consciousness Overall: oriented to person, place and time 08/24/2018 None Full Exam - General 1994 Psychiatric behavior/psychomotor activity Overall: no tics, normal psychomotor activity 08/24/2018 None Full Exam - General 1994 Psychiatric mood and affect Overall: normal mood and affect 08/24/2018 None Full Exam - General 1994 Psychiatric appearance Overall: well-groomed, good eye contact 08/24/2018 None Full Exam - General 1994 Constitutional general appearance Overall: well developed 02/23/2018 None Full Exam - General 1994 Constitutional general appearance Overall: in no acute distress 02/23/2018 None Full Exam - General 1994 Constitutional general appearance Overall: well nourished 02/23/2018 None Full Exam - General 1994 Eyes conjunctiva/eyelids Overall: conjunctiva clear 02/23/2018 None Full Exam - General 1994 Eyes conjunctiva/eyelids Overall: cornea clear 02/23/2018 None Full Exam - General 1994 Eyes conjunctiva/eyelids Overall: eyelids normal 02/23/2018 None Full Exam - General 1994 Eyes pupils and irises Overall: pupils equal, round, reactive to light and accomodation 02/23/2018 None Full Exam - General 1994 Ears/Nose/Throat external ear Overall: normal appearance 02/23/2018 None Full Exam - General 1994 Ears/Nose/Throat external ear Overall: no masses 02/23/2018 None Full Exam - General 1994 Ears/Nose/Throat external ear Overall: normal mastoids 02/23/2018 None Full Exam - General 1994 Ears/Nose/Throat external nose Overall: benign appearance 02/23/2018 None Full Exam - General 1994 Ears/Nose/Throat external nose Overall: no masses 02/23/2018 None Full Exam - General 1994 Ears/Nose/Throat external nose Overall: non-tender 02/23/2018 None Full Exam - General 1994 Ears/Nose/Throat otoscopic exam Overall: external auditory canals clear 02/23/2018 None Full Exam - General 1994 Ears/Nose/Throat otoscopic exam Overall: tympanic membranes clear 02/23/2018 None Full Exam - General 1994 Ears/Nose/Throat otoscopic exam Tympanic membrane: air-fluid level 02/23/2018 None Full Exam - General 1994 Ears/Nose/Throat lips/teeth/gingiva Overall: benign lips 02/23/2018 None Full Exam - General 1994 Ears/Nose/Throat lips/teeth/gingiva Overall: normal dentition 02/23/2018 None Full Exam - General 1994 Ears/Nose/Throat lips/teeth/gingiva Overall: benign gingiva 02/23/2018 None Full Exam - General 1994 Ears/Nose/Throat lips/teeth/gingiva Overall: no masses 02/23/2018 None Full Exam - General 1994 Ears/Nose/Throat oral cavity/pharynx/larynx Overall: oral mucosa clear 02/23/2018 None Full Exam - General 1994 Ears/Nose/Throat oral cavity/pharynx/larynx Overall: oropharyngeal mucosa clear 02/23/2018 None Full Exam - General 1994 Ears/Nose/Throat oral cavity/pharynx/larynx Overall: no masses 02/23/2018 None Full Exam - General 1994 Respiratory auscultation Overall: breath sounds clear bilaterally 02/23/2018 None Full Exam - General 1994 Respiratory respiratory effort/rhythm Overall: no retractions 02/23/2018 None Full Exam - General 1994 Respiratory respiratory effort/rhythm Overall: normal rate 02/23/2018 None Full Exam - General 1994 Cardiovascular extremities Overall: no clubbing 02/23/2018 None Full Exam - General 1994 Abdomen abdominal exam Overall: no tenderness 02/23/2018 None Full Exam - General 1994 Abdomen abdominal exam Overall: normal bowel sounds 02/23/2018 None Full Exam - General 1994 Musculoskeletal gait and station Overall: normal gait 02/23/2018 None Full Exam - General 1994 Musculoskeletal gait and station Overall: normal station 02/23/2018 None Full Exam - General 1994 Integument inspection of skin Overall: no rash, lesions 02/23/2018 None Full Exam - General 1994 Psychiatric orientation/consciousness Overall: oriented to person, place and time 02/23/2018 None Full Exam - General 1994 Psychiatric behavior/psychomotor activity Overall: no tics, normal psychomotor activity 02/23/2018 None Full Exam - General 1994 Psychiatric mood and affect Overall: normal mood and affect 02/23/2018 None Full Exam - General 1994 Psychiatric appearance Overall: well-groomed, good eye contact 02/23/2018 None Full Exam - General 1994 Ears/Nose/Throat otoscopic exam Tympanic membrane: effusion 02/23/2018 None Full Exam - General 1994 Constitutional general appearance Overall: well developed 08/14/2017 None Full Exam - General 1994 Constitutional general appearance Overall: in no acute distress 08/14/2017 None Full Exam - General 1994 Constitutional general appearance Overall: well nourished 08/14/2017 None Full Exam - General 1994 Eyes conjunctiva/eyelids Overall: conjunctiva clear 08/14/2017 None Full Exam - General 1994 Eyes conjunctiva/eyelids Overall: cornea clear 08/14/2017 None Full Exam - General 1994 Eyes conjunctiva/eyelids Overall: eyelids normal 08/14/2017 None Full Exam - General 1994 Eyes pupils and irises Overall: pupils equal, round, reactive to light and accomodation 08/14/2017 None Full Exam - General 1994 Ears/Nose/Throat external ear Overall: normal appearance 08/14/2017 None Full Exam - General 1994 Ears/Nose/Throat external ear Overall: no masses 08/14/2017 None Full Exam - General 1994 Ears/Nose/Throat external ear Overall: normal mastoids 08/14/2017 None Full Exam - General 1994 Ears/Nose/Throat external nose Overall: benign appearance 08/14/2017 None Full Exam - General 1994 Ears/Nose/Throat external nose Overall: no masses 08/14/2017 None Full Exam - General 1994 Ears/Nose/Throat external nose Overall: non-tender 08/14/2017 None Full Exam - General 1994 Ears/Nose/Throat otoscopic exam Overall: external auditory canals clear 08/14/2017 None Full Exam - General 1994 Ears/Nose/Throat otoscopic exam Overall: tympanic membranes clear 08/14/2017 None Full Exam - General 1994 Ears/Nose/Throat lips/teeth/gingiva Overall: benign lips 08/14/2017 None Full Exam - General 1994 Ears/Nose/Throat lips/teeth/gingiva Overall: normal dentition 08/14/2017 None Full Exam - General 1994 Ears/Nose/Throat lips/teeth/gingiva Overall: benign gingiva 08/14/2017 None Full Exam - General 1994 Ears/Nose/Throat lips/teeth/gingiva Overall: no masses 08/14/2017 None Full Exam - General 1994 Ears/Nose/Throat oral cavity/pharynx/larynx Overall: oral mucosa clear 08/14/2017 None Full Exam - General 1994 Ears/Nose/Throat oral cavity/pharynx/larynx Overall: oropharyngeal mucosa clear 08/14/2017 None Full Exam - General 1994 Ears/Nose/Throat oral cavity/pharynx/larynx Overall: no masses 08/14/2017 None Full Exam - General 1994 Respiratory auscultation Overall: breath sounds clear bilaterally 08/14/2017 None Full Exam - General 1994 Respiratory respiratory effort/rhythm Overall: no retractions 08/14/2017 None Full Exam - General 1994 Respiratory respiratory effort/rhythm Overall: normal rate 08/14/2017 None Full Exam - General 1994 Cardiovascular extremities Overall: no clubbing 08/14/2017 None Full Exam - General 1994 Abdomen abdominal exam Overall: no tenderness 08/14/2017 None Full Exam - General 1994 Abdomen abdominal exam Overall: normal bowel sounds 08/14/2017 None Full Exam - General 1994 Musculoskeletal gait and station Overall: normal gait 08/14/2017 None Full Exam - General 1994 Musculoskeletal gait and station Overall: normal station 08/14/2017 None Full Exam - General 1994 Integument inspection of skin Overall: no rash, lesions 08/14/2017 None Full Exam - General 1994 Psychiatric orientation/consciousness Overall: oriented to person, place and time 08/14/2017 None Full Exam - General 1994 Psychiatric behavior/psychomotor activity Overall: no tics, normal psychomotor activity 08/14/2017 None Full Exam - General 1994 Psychiatric mood and affect Overall: normal mood and affect 08/14/2017 None Full Exam - General 1994 Psychiatric appearance Overall: well-groomed, good eye contact 08/14/2017 None Full Exam - General 1994 Ears/Nose/Throat otoscopic exam Tympanic membrane: air-fluid level 08/14/2017 None Full Exam - General 1994 Constitutional general appearance Overall: well developed 12/18/2016 None Full Exam - General 1994 Constitutional general appearance Overall: in no acute distress 12/18/2016 None Full Exam - General 1994 Constitutional general appearance Overall: well nourished 12/18/2016 None Full Exam - General 1994 Eyes conjunctiva/eyelids Overall: conjunctiva clear 12/18/2016 None Full Exam - General 1994 Eyes conjunctiva/eyelids Overall: cornea clear 12/18/2016 None Full Exam - General 1994 Eyes conjunctiva/eyelids Overall: eyelids normal 12/18/2016 None Full Exam - General 1994 Eyes pupils and irises Overall: pupils equal, round, reactive to light and accomodation 12/18/2016 None Full Exam - General 1994 Ears/Nose/Throat external ear Overall: normal appearance 12/18/2016 None Full Exam - General 1994 Ears/Nose/Throat external ear Overall: no masses 12/18/2016 None Full Exam - General 1994 Ears/Nose/Throat external ear Overall: normal mastoids 12/18/2016 None Full Exam - General 1994 Ears/Nose/Throat external nose Overall: benign appearance 12/18/2016 None Full Exam - General 1994 Ears/Nose/Throat external nose Overall: no masses 12/18/2016 None Full Exam - General 1994 Ears/Nose/Throat external nose Overall: non-tender 12/18/2016 None Full Exam - General 1994 Ears/Nose/Throat otoscopic exam Overall: external auditory canals clear 12/18/2016 None Full Exam - General 1994 Ears/Nose/Throat otoscopic exam Overall: tympanic membranes clear 12/18/2016 None Full Exam - General 1994 Ears/Nose/Throat lips/teeth/gingiva Overall: benign lips 12/18/2016 None Full Exam - General 1994 Ears/Nose/Throat lips/teeth/gingiva Overall: normal dentition 12/18/2016 None Full Exam - General 1994 Ears/Nose/Throat lips/teeth/gingiva Overall: benign gingiva 12/18/2016 None Full Exam - General 1994 Ears/Nose/Throat lips/teeth/gingiva Overall: no masses 12/18/2016 None Full Exam - General 1994 Ears/Nose/Throat oral cavity/pharynx/larynx Overall: oral mucosa clear 12/18/2016 None Full Exam - General 1994 Ears/Nose/Throat oral cavity/pharynx/larynx Overall: oropharyngeal mucosa clear 12/18/2016 None Full Exam - General 1994 Ears/Nose/Throat oral cavity/pharynx/larynx Overall: no masses 12/18/2016 None Full Exam - General 1994 Respiratory auscultation Overall: breath sounds clear bilaterally 12/18/2016 None Full Exam - General 1994 Respiratory respiratory effort/rhythm Overall: no retractions 12/18/2016 None Full Exam - General 1994 Respiratory respiratory effort/rhythm Overall: normal rate 12/18/2016 None Full Exam - General 1994 Cardiovascular extremities Overall: no clubbing 12/18/2016 None Full Exam - General 1994 Abdomen abdominal exam Overall: no tenderness 12/18/2016 None Full Exam - General 1994 Abdomen abdominal exam Overall: normal bowel sounds 12/18/2016 None Full Exam - General 1994 Musculoskeletal gait and station Overall: normal gait 12/18/2016 None Full Exam - General 1994 Musculoskeletal gait and station Overall: normal station 12/18/2016 None Full Exam - General 1994 Integument inspection of skin Overall: no rash, lesions 12/18/2016 None Full Exam - General 1994 Psychiatric orientation/consciousness Overall: oriented to person, place and time 12/18/2016 None Full Exam - General 1994 Psychiatric behavior/psychomotor activity Overall: no tics, normal psychomotor activity 12/18/2016 None Full Exam - General 1994 Psychiatric mood and affect Overall: normal mood and affect 12/18/2016 None Full Exam - General 1994 Psychiatric appearance Overall: well-groomed, good eye contact 12/18/2016 None Full Exam - General 1994 Constitutional general appearance Overall: well developed 06/13/2016 None Full Exam - General 1994 Constitutional general appearance Overall: in no acute distress 06/13/2016 None Full Exam - General 1994 Constitutional general appearance Overall: well nourished 06/13/2016 None Full Exam - General 1994 Eyes conjunctiva/eyelids Overall: conjunctiva clear 06/13/2016 None Full Exam - General 1994 Eyes conjunctiva/eyelids Overall: cornea clear 06/13/2016 None Full Exam - General 1994 Eyes conjunctiva/eyelids Overall: eyelids normal 06/13/2016 None Full Exam - General 1994 Eyes pupils and irises Overall: pupils equal, round, reactive to light and accomodation 06/13/2016 None Full Exam - General 1994 Ears/Nose/Throat external ear Overall: normal appearance 06/13/2016 None Full Exam - General 1994 Ears/Nose/Throat external ear Overall: no masses 06/13/2016 None Full Exam - General 1994 Ears/Nose/Throat external ear Overall: normal mastoids 06/13/2016 None Full Exam - General 1994 Ears/Nose/Throat external nose Overall: benign appearance 06/13/2016 None Full Exam - General 1994 Ears/Nose/Throat external nose Overall: no masses 06/13/2016 None Full Exam - General 1994 Ears/Nose/Throat external nose Overall: non-tender 06/13/2016 None Full Exam - General 1994 Ears/Nose/Throat otoscopic exam Overall: external auditory canals clear 06/13/2016 None Full Exam - General 1994 Ears/Nose/Throat otoscopic exam Overall: tympanic membranes clear 06/13/2016 None Full Exam - General 1994 Ears/Nose/Throat lips/teeth/gingiva Overall: benign lips 06/13/2016 None Full Exam - General 1994 Ears/Nose/Throat lips/teeth/gingiva Overall: normal dentition 06/13/2016 None Full Exam - General 1994 Ears/Nose/Throat lips/teeth/gingiva Overall: benign gingiva 06/13/2016 None Full Exam - General 1994 Ears/Nose/Throat lips/teeth/gingiva Overall: no masses 06/13/2016 None Full Exam - General 1994 Ears/Nose/Throat oral cavity/pharynx/larynx Overall: oral mucosa clear 06/13/2016 None Full Exam - General 1994 Ears/Nose/Throat oral cavity/pharynx/larynx Overall: oropharyngeal mucosa clear 06/13/2016 None Full Exam - General 1994 Ears/Nose/Throat oral cavity/pharynx/larynx Overall: no masses 06/13/2016 None Full Exam - General 1994 Respiratory auscultation Overall: breath sounds clear bilaterally 06/13/2016 None Full Exam - General 1994 Respiratory respiratory effort/rhythm Overall: no retractions 06/13/2016 None Full Exam - General 1994 Respiratory respiratory effort/rhythm Overall: normal rate 06/13/2016 None Full Exam - General 1994 Cardiovascular extremities Overall: no clubbing 06/13/2016 None Full Exam - General 1994 Abdomen abdominal exam Overall: no tenderness 06/13/2016 None Full Exam - General 1994 Abdomen abdominal exam Overall: normal bowel sounds 06/13/2016 None Full Exam - General 1994 Musculoskeletal gait and station Overall: normal gait 06/13/2016 None Full Exam - General 1994 Musculoskeletal gait and station Overall: normal station 06/13/2016 None Full Exam - General 1994 Integument inspection of skin Overall: no rash, lesions 06/13/2016 None Full Exam - General 1994 Psychiatric orientation/consciousness Overall: oriented to person, place and time 06/13/2016 None Full Exam - General 1994 Psychiatric behavior/psychomotor activity Overall: no tics, normal psychomotor activity 06/13/2016 None Full Exam - General 1994 Psychiatric mood and affect Overall: normal mood and affect 06/13/2016 None Full Exam - General 1994 Psychiatric appearance Overall: well-groomed, good eye contact 06/13/2016 None Full Exam - General 1994 Constitutional general appearance Overall: well developed 12/07/2015 None Full Exam - General 1994 Constitutional general appearance Overall: in no acute distress 12/07/2015 None Full Exam - General 1994 Constitutional general appearance Overall: well nourished 12/07/2015 None Full Exam - General 1994 Eyes conjunctiva/eyelids Overall: conjunctiva clear 12/07/2015 None Full Exam - General 1994 Eyes conjunctiva/eyelids Overall: cornea clear 12/07/2015 None Full Exam - General 1994 Eyes conjunctiva/eyelids Overall: eyelids normal 12/07/2015 None Full Exam - General 1994 Eyes pupils and irises Overall: pupils equal, round, reactive to light and accomodation 12/07/2015 None Full Exam - General 1994 Ears/Nose/Throat external ear Overall: normal appearance 12/07/2015 None Full Exam - General 1994 Ears/Nose/Throat external ear Overall: no masses 12/07/2015 None Full Exam - General 1994 Ears/Nose/Throat external ear Overall: normal mastoids 12/07/2015 None Full Exam - General 1994 Ears/Nose/Throat external nose Overall: benign appearance 12/07/2015 None Full Exam - General 1994 Ears/Nose/Throat external nose Overall: no masses 12/07/2015 None Full Exam - General 1994 Ears/Nose/Throat external nose Overall: non-tender 12/07/2015 None Full Exam - General 1994 Ears/Nose/Throat otoscopic exam Overall: external auditory canals clear 12/07/2015 None Full Exam - General 1994 Ears/Nose/Throat otoscopic exam Overall: tympanic membranes clear 12/07/2015 None Full Exam - General 1994 Ears/Nose/Throat lips/teeth/gingiva Overall: benign lips 12/07/2015 None Full Exam - General 1994 Ears/Nose/Throat lips/teeth/gingiva Overall: normal dentition 12/07/2015 None Full Exam - General 1994 Ears/Nose/Throat lips/teeth/gingiva Overall: benign gingiva 12/07/2015 None Full Exam - General 1994 Ears/Nose/Throat lips/teeth/gingiva Overall: no masses 12/07/2015 None Full Exam - General 1994 Ears/Nose/Throat oral cavity/pharynx/larynx Overall: oral mucosa clear 12/07/2015 None Full Exam - General 1994 Ears/Nose/Throat oral cavity/pharynx/larynx Overall: oropharyngeal mucosa clear 12/07/2015 None Full Exam - General 1994 Ears/Nose/Throat oral cavity/pharynx/larynx Overall: no masses 12/07/2015 None Full Exam - General 1994 Respiratory auscultation Overall: breath sounds clear bilaterally 12/07/2015 None Full Exam - General 1994 Respiratory respiratory effort/rhythm Overall: no retractions 12/07/2015 None Full Exam - General 1994 Respiratory respiratory effort/rhythm Overall: normal rate 12/07/2015 None Full Exam - General 1994 Cardiovascular extremities Overall: no clubbing 12/07/2015 None Full Exam - General 1994 Abdomen abdominal exam Overall: no tenderness 12/07/2015 None Full Exam - General 1994 Abdomen abdominal exam Overall: normal bowel sounds 12/07/2015 None Full Exam - General 1994 Musculoskeletal gait and station Overall: normal gait 12/07/2015 None Full Exam - General 1994 Musculoskeletal gait and station Overall: normal station 12/07/2015 None Full Exam - General 1994 Integument inspection of skin Overall: no rash, lesions 12/07/2015 None Full Exam - General 1994 Psychiatric orientation/consciousness Overall: oriented to person, place and time 12/07/2015 None Full Exam - General 1994 Psychiatric behavior/psychomotor activity Overall: no tics, normal psychomotor activity 12/07/2015 None Full Exam - General 1994 Psychiatric appearance Overall: well-groomed, good eye contact 12/07/2015 None Full Exam - General 1994 Psychiatric mood and affect Overall: normal mood and affect 12/07/2015 None Full Exam - General 1994 Constitutional general appearance Overall: well nourished 05/25/2015 None Full Exam - General 1994 Constitutional general appearance Overall: well developed 05/25/2015 None Full Exam - General 1994 Constitutional general appearance Overall: in no acute distress 05/25/2015 None Full Exam - General 1994 Eyes pupils and irises Overall: pupils equal, round, reactive to light and accomodation 05/25/2015 None Full Exam - General 1994 Eyes conjunctiva/eyelids Overall: conjunctiva clear 05/25/2015 None Full Exam - General 1994 Eyes conjunctiva/eyelids Overall: eyelids normal 05/25/2015 None Full Exam - General 1994 Eyes conjunctiva/eyelids Overall: cornea clear 05/25/2015 None Full Exam - General 1994 Ears/Nose/Throat lips/teeth/gingiva Overall: benign gingiva 05/25/2015 None Full Exam - General 1994 Ears/Nose/Throat lips/teeth/gingiva Overall: no masses 05/25/2015 None Full Exam - General 1994 Ears/Nose/Throat lips/teeth/gingiva Overall: normal dentition 05/25/2015 None Full Exam - General 1994 Ears/Nose/Throat lips/teeth/gingiva Overall: benign lips 05/25/2015 None Full Exam - General 1994 Ears/Nose/Throat oral cavity/pharynx/larynx Overall: oropharyngeal mucosa clear 05/25/2015 None Full Exam - General 1994 Ears/Nose/Throat oral cavity/pharynx/larynx Overall: no masses 05/25/2015 None Full Exam - General 1994 Ears/Nose/Throat oral cavity/pharynx/larynx Overall: oral mucosa clear 05/25/2015 None Full Exam - General 1994 Ears/Nose/Throat otoscopic exam Overall: tympanic membranes clear 05/25/2015 None Full Exam - General 1994 Ears/Nose/Throat otoscopic exam Overall: external auditory canals clear 05/25/2015 None Full Exam - General 1994 Ears/Nose/Throat external nose Overall: benign appearance 05/25/2015 None Full Exam - General 1994 Ears/Nose/Throat external nose Overall: non-tender 05/25/2015 None Full Exam - General 1994 Ears/Nose/Throat external nose Overall: no masses 05/25/2015 None Full Exam - General 1994 Ears/Nose/Throat external ear Overall: no masses 05/25/2015 None Full Exam - General 1994 Ears/Nose/Throat external ear Overall: normal appearance 05/25/2015 None Full Exam - General 1994 Ears/Nose/Throat external ear Overall: normal mastoids 05/25/2015 None Full Exam - General 1994 Cardiovascular extremities Overall: no clubbing 05/25/2015 None Full Exam - General 1994 Respiratory respiratory effort/rhythm Overall: normal rate 05/25/2015 None Full Exam - General 1994 Respiratory respiratory effort/rhythm Overall: no retractions 05/25/2015 None Full Exam - General 1994 Respiratory auscultation Overall: breath sounds clear bilaterally 05/25/2015 None Full Exam - General 1994 Abdomen abdominal exam Overall: no tenderness 05/25/2015 None Full Exam - General 1994 Abdomen abdominal exam Overall: normal bowel sounds 05/25/2015 None Full Exam - General 1994 Musculoskeletal gait and station Overall: normal station 05/25/2015 None Full Exam - General 1994 Musculoskeletal gait and station Overall: normal gait 05/25/2015 None Full Exam - General 1994 Integument inspection of skin Overall: no rash, lesions 05/25/2015 None Full Exam - General 1994 Psychiatric behavior/psychomotor activity Overall: no tics, normal psychomotor activity 05/25/2015 None Full Exam - General 1994 Psychiatric orientation/consciousness Overall: oriented to person, place and time 05/25/2015 None Full Exam - General 1994 Psychiatric mood and affect Mood: depressed 05/25/2015 MILD Full Exam - General 1994 Psychiatric mood and affect Affect: mood congruent 05/25/2015 None Full Exam - General 1994 Psychiatric appearance Overall: well-groomed, good eye contact 05/25/2015 None Full Exam - General 1994 Constitutional general appearance Development: well developed 11/24/2014 None Full Exam - General 1994 Constitutional general appearance Development: appears stated age 0711/24/2014 None Full Exam - General 1994 Constitutional general appearance Hygiene/Attention to Grooming: good hygiene 11/24/2014 None Full Exam - General 1994 Eyes conjunctiva/eyelids Overall: conjunctiva clear 11/24/2014 None Full Exam - General 1994 Eyes conjunctiva/eyelids Overall: cornea clear 11/24/2014 None Full Exam - General 1994 Eyes conjunctiva/eyelids Overall: eyelids normal 11/24/2014 None Full Exam - General 1994 Eyes pupils and irises Overall: pupils equal, round, reactive to light and accomodation 11/24/2014 None Full Exam - General 1994 Ears/Nose/Throat otoscopic exam Overall: external auditory canals clear 11/24/2014 None Full Exam - General 1994 Ears/Nose/Throat otoscopic exam Overall: tympanic membranes clear 11/24/2014 None Full Exam - General 1994 Ears/Nose/Throat lips/teeth/gingiva Overall: benign lips 11/24/2014 None Full Exam - General 1994 Ears/Nose/Throat lips/teeth/gingiva Overall: normal dentition 11/24/2014 None Full Exam - General 1994 Ears/Nose/Throat oral cavity/pharynx/larynx Overall: oral mucosa clear 11/24/2014 None Full Exam - General 1994 Ears/Nose/Throat oral cavity/pharynx/larynx Overall: oropharyngeal mucosa clear 11/24/2014 None Full Exam - General 1994 Ears/Nose/Throat oral cavity/pharynx/larynx Overall: hypopharynx benign 11/24/2014 None Full Exam - General 1994 Ears/Nose/Throat oral cavity/pharynx/larynx Overall: no masses 11/24/2014 None Full Exam - General 1994 Respiratory auscultation Overall: breath sounds clear bilaterally 11/24/2014 None Full Exam - General 1994 Respiratory respiratory effort/rhythm Overall: no retractions 11/24/2014 None Full Exam - General 1994 Respiratory respiratory effort/rhythm Overall: normal rate 11/24/2014 None Full Exam - General 1994 Cardiovascular extremities Overall: no clubbing 11/24/2014 None Full Exam - General 1994 Cardiovascular auscultation of heart Overall: regular rate 11/24/2014 None Full Exam - General 1994 Cardiovascular auscultation of heart Overall: normal heart sounds 11/24/2014 None Full Exam - General 1994 Abdomen abdominal exam Overall: no tenderness 11/24/2014 None Full Exam - General 1994 Abdomen abdominal exam Overall: normal bowel sounds 11/24/2014 None Full Exam - General 1994 Lymphatic neck nodes Overall: anterior cervical chain benign 11/24/2014 None Full Exam - General 1994 Lymphatic neck nodes Overall: posterior cervical chain benign 11/24/2014 None Full Exam - General 1994 Musculoskeletal spine, ribs and pelvis Overall: spine benign 11/24/2014 None Full Exam - General 1994 Musculoskeletal spine, ribs and pelvis Overall: sacroiliac joint benign 11/24/2014 None Full Exam - General 1994 Musculoskeletal spine, ribs and pelvis Overall: good posture 11/24/2014 None Full Exam - General 1994 Musculoskeletal head and neck Overall: head atraumatic 11/24/2014 None Full Exam - General 1994 Musculoskeletal head and neck Overall: cervical spine benign 11/24/2014 None Full Exam - General 1994 Integument inspection of skin Overall: few scattered moles, no gross abnormalities 11/24/2014 None Full Exam - General 1994 Neurologic deep tendon reflexes Overall: deep tendon reflexes intact 11/24/2014 None Full Exam - General 1994 Neurologic cranial nerves Overall: crainial nerves 2 - 12 grossly intact 11/24/2014 None Full Exam - General 1994 Psychiatric orientation/consciousness Overall: oriented to person, place and time 11/24/2014 None Full Exam - General 1994 Psychiatric mood and affect Overall: normal mood and affect 11/24/2014 None Procedures No Procedures data Vital Signs Date Vital 08/24/2018 Blood Pressure 1: 140/80 Code: 8480-6 BMI: 22.2 Code: 86555-2 Heart Rate 1: 77 bpm Height: 5'7" SpO2: 98% Weight: 142 lbs 02/23/2018 Blood Pressure 1: 140/70 Code: 8480-6 BMI: 22.1 Code: 64043-5 Heart Rate 1: 77 bpm Height: 5'7" SpO2: 99% Weight: 141 lbs 08/14/2017 Blood Pressure 1: 126/78 Code: 8480-6 BMI: 22.9 Code: 74335-9 Heart Rate 1: 76 bpm Height: 5'7" SpO2: 99% Weight: 146 lbs 8 oz 12/18/2016 Blood Pressure 1: 122/72 Code: 8480-6 BMI: 22.2 Code: 68734-1 Heart Rate 1: 74 bpm Height: 5'7" SpO2: 98% Weight: 142 lbs 06/13/2016 Blood Pressure 1: 124/76 Code: 8480-6 BMI: 22.6 Code: 43042-0 Heart Rate 1: 79 bpm Height: 5'7" SpO2: 99% Weight: 144 lbs 12/07/2015 Blood Pressure 1: 122/64 Code: 8480-6 BMI: 22.4 Code: 60964-2 Heart Rate 1: 75 bpm Height: 5'7" SpO2: 98% Weight: 143 lbs 05/25/2015 Blood Pressure 1: 134/78 Code: 8480-6 BMI: 22.6 Code: 08458-3 Heart Rate 1: 74 bpm Height: 5'7" Weight: 144 lbs 11/24/2014 Blood Pressure 1: 130/72 Code: 8480-6 BMI: 23.6 Code: 95441-8 Heart Rate 1: 68 bpm Height: 5'7" SpO2: 98% Weight: 151 lbs Functional Status No Functional Status data History of Present Illness Symptom Name Status Result Effective Date Notes Quality chronic 08/24/2018 None Quality primary hypertension 08/24/2018 None Onset and Resolution ongoing 08/24/2018 None Onset of Symptom during adulthood 08/24/2018 None Blood Pressure Values not checking blood pressure at home 08/24/2018 None Significant Family History heart disease 08/24/2018 None Alleviating Factors medication 08/24/2018 None Pertinent Findings Denies dizziness 08/24/2018 None Pertinent Findings Denies dyspnea 08/24/2018 None Pertinent Findings Denies edema 08/24/2018 None Onset of Symptom during adulthood 08/24/2018 None Alleviating Factors medication 08/24/2018 None Exacerbating Factors diet 08/24/2018 None Quality chronic 08/24/2018 None Onset and Resolution gradual in onset 08/24/2018 None hypertension Quality chronic 02/23/2018 None hypertension Onset and Resolution ongoing 02/23/2018 None hypertension Onset of Symptom during adulthood 02/23/2018 None hypertension Blood Pressure Values not checking blood pressure at home 02/23/2018 None hypertension Significant Family History heart disease 02/23/2018 None hypertension Alleviating Factors medication 02/23/2018 None hypertension Pertinent Findings Denies dizziness 02/23/2018 None hypertension Pertinent Findings Denies dyspnea 02/23/2018 None hypertension Pertinent Findings Denies edema 02/23/2018 None hypertension Quality primary hypertension 02/23/2018 None hyperlipidemia Onset and Resolution gradual in onset 02/23/2018 None hyperlipidemia Onset of Symptom during adulthood 02/23/2018 None hyperlipidemia Alleviating Factors medication 02/23/2018 None hyperlipidemia Exacerbating Factors diet 02/23/2018 None hyperlipidemia Quality chronic 02/23/2018 None hypertension Quality chronic 08/14/2017 None hypertension Onset and Resolution ongoing 08/14/2017 None hypertension Onset of Symptom during adulthood 08/14/2017 None hypertension Blood Pressure Values not checking blood pressure at home 08/14/2017 None hypertension Severity not consistently severe symptoms, the symptoms fluctuate from no symptoms to anxiety and headaches 08/14/2017 None hypertension Frequency of Episodes weekly 08/14/2017 None hypertension Significant Family History heart disease 08/14/2017 None hypertension Triggers no known associated factors 08/14/2017 None hypertension Alleviating Factors medication 08/14/2017 None hypertension Pertinent Findings Denies anxiety 08/14/2017 None hypertension Pertinent Findings Denies decreased energy 08/14/2017 None hypertension Pertinent Findings Denies dizziness 08/14/2017 None hypertension Pertinent Findings Denies dyspnea 08/14/2017 None hypertension Pertinent Findings Denies edema 08/14/2017 None hypertension Quality chronic 12/18/2016 None hypertension Onset and Resolution ongoing 12/18/2016 None hypertension Onset of Symptom during adulthood 12/18/2016 None hypertension Blood Pressure Values not checking blood pressure at home 12/18/2016 None hypertension Severity not consistently severe symptoms, the symptoms fluctuate from no symptoms to anxiety and headaches 12/18/2016 None hypertension Frequency of Episodes weekly 12/18/2016 None hypertension Significant Family History heart disease 12/18/2016 None hypertension Triggers no known associated factors 12/18/2016 None hypertension Alleviating Factors medication 12/18/2016 None hypertension Pertinent Findings Denies dizziness 12/18/2016 None hypertension Pertinent Findings Denies dyspnea 12/18/2016 None hypertension Pertinent Findings Denies edema 12/18/2016 None hypertension Pertinent Findings Denies decreased energy 12/18/2016 None hypertension Pertinent Findings Denies anxiety 12/18/2016 None hypertension Quality chronic 06/13/2016 None hypertension Onset and Resolution ongoing 06/13/2016 None hypertension Onset of Symptom during adulthood 06/13/2016 None hypertension Severity not consistently severe symptoms, the symptoms fluctuate from no symptoms to anxiety and headaches 06/13/2016 None hypertension Frequency of Episodes weekly 06/13/2016 None hypertension Significant Family History heart disease 06/13/2016 None hypertension Triggers no known associated factors 06/13/2016 None hypertension Alleviating Factors medication 06/13/2016 None hypertension Blood Pressure Values not checking blood pressure at home 06/13/2016 None hypertension Pertinent Findings Denies dizziness 06/13/2016 None hypertension Pertinent Findings Denies dyspnea 06/13/2016 None hypertension Pertinent Findings Denies edema 06/13/2016 None hypertension Quality chronic 12/07/2015 None hypertension Onset and Resolution ongoing 12/07/2015 None hypertension Onset of Symptom during adulthood 12/07/2015 None hypertension Blood Pressure Values patient checking blood pressure at home - did not bring in readings 12/07/2015 None hypertension Severity not consistently severe symptoms, the symptoms fluctuate from no symptoms to anxiety and headaches 12/07/2015 None hypertension Frequency of Episodes weekly 12/07/2015 None hypertension Significant Family History heart disease 12/07/2015 None hypertension Triggers no known associated factors 12/07/2015 None hypertension Alleviating Factors medication 12/07/2015 None hypertension Onset and Resolution ongoing 05/25/2015 None hypertension Onset of Symptom during adulthood 05/25/2015 None hypertension Blood Pressure Values patient checking blood pressure at home - did not bring in readings 05/25/2015 None hypertension Frequency of Episodes weekly 05/25/2015 None hypertension Alleviating Factors medication 05/25/2015 None hypertension Quality chronic 05/25/2015 None hypertension Severity not consistently severe symptoms, the symptoms fluctuate from no symptoms to anxiety and headaches 05/25/2015 None hypertension Triggers no known associated factors 05/25/2015 None hypertension Significant Family History heart disease 05/25/2015 None hypertension Blood Pressure Values patient checking blood pressure at home - did not bring in readings 11/24/2014 None hypertension Frequency of Episodes weekly 11/24/2014 None hypertension Onset and Resolution ongoing 11/24/2014 None hypertension Onset of Symptom during adulthood 11/24/2014 None hypertension Alleviating Factors medication 11/24/2014 None Advance Directives No Advance Directive data Encounters Encounter Performer Location Codes Date ([id number]) [id number] EST. PATIENT, LEVEL IV Diagnosis: Essential (primary) hypertension[ICD10: I10] Diagnosis: Chronic mucoid otitis media, right ear[ICD10: H65.31] Diagnosis: Mixed hyperlipidemia[ICD10: E78.2] Claudia Yen MD, [facility] CPT- 4: 66930 08/24/2018 [id number]) [id number] EST. PATIENT, LEVEL IV Diagnosis: Essential (primary) hypertension[ICD10: I10] Diagnosis: Mixed hyperlipidemia[ICD10: E78.2] Diagnosis: Other allergic rhinitis[ICD10: J30.89] Diagnosis: Chronic mucoid otitis media, right ear[ICD10: H65.31] Claudia Yen MD, [facility] CPT-4: 34414 02/23/2018 [id number]) [id number] EST. PATIENT, LEVEL III Diagnosis: Essential (primary) hypertension[ICD10: I10] Diagnosis: Other allergic rhinitis[ICD10: J30.89] Claudia Yen MD, [facility] CPT-4: 85464 08/14/2017 ([id number] EST. PATIENT, LEVEL III Diagnosis: Essential (primary) hypertension[ICD10: I10] Diagnosis: Mixed hyperlipidemia[ICD10: E78.2] Claudia Yen MD, [facility] CPT- 4: 45955 12/18/2016 ([id number]) [id number] EST. PATIENT, LEVEL III Diagnosis: Essential (primary) hypertension[ICD10: I10] Diagnosis: Mixed hyperlipidemia[ICD10: E78.2] Claudia Yen MD, [facility] CPT- 4: 09267 06/13/2016 ([id number]) [id number] EST. PATIENT, LEVEL IV Diagnosis: Essential (primary) hypertension[ICD10: I10] Diagnosis: Mixed hyperlipidemia[ICD10: E78.2] Diagnosis: Occlusion and stenosis of bilateral carotid arteries[ICD10: I65.23] Claudia Yen MD, [facility] CPT-4: 25654 12/07/2015 ([id number] EST. PATIENT, LEVEL IV Diagnosis: Essential (primary) hypertension[ICD10: I10] Diagnosis: Abnormal weight loss[ICD10: R63.4] Diagnosis: Elevated prostate specific antigen [PSA][ICD10: R97.2] Claudia Yen MD, [facility] CPT-4: 99275 05/25/2015 ([id number]) INIT PM E/M NEW PAT 65+ YRS Diagnosis: Routine medical exam[ICD9: V70.0] Amna Yen MD, [facility] CPT- 4: 30468 11/24/2014 Plan of Care Planned Activity Notes Codes Status Date Visit Plan: Hypertension - well controlled - continue with current medications, continue with no added salt diet. Pt has been encouraged to exercise daily. The pt has been advised to call the office if there are any acute concerns about change in blood pressure readings at home. Hyperlipidemia - pt has been counseled about appropriate diet, exercise, and need for low fat food choices. I have discussed the need for the patient to take medications as prescribed. If the patient has negative side effects from the medication, they are to CALL the office and not abruptly discontinue the medication without discussion with a practitioner in the office. We will check labs in 3-6 months for follow up on the patient's chronic medical problem and to assure normal liver response to medications. Otitis Media - discussed the diagnosis with the patient, script sent electronically to the pharmacy for treatment of the infection. Recommend appt with Dr Corbin for evaluation due to ongoing infection -patient will consider 08/24/2018 Appointment: Claudia Redd WPtel: [phone] [phone] (30 min) Complex 08/24/2018 Patient Education: Patient Medication Summary Completed 08/24/2018 Patient Education: Hypertension Completed 08/24/2018 Patient Education: Cholesterol Management Completed 08/24/2018 Appointment: Claudia Redd WPtel: [phone] [phone] [place] (15 min) Moderate 08/19/2018 Appointment: Leia La WPtel: [phone] [phone] (30 min) Complex 05/11/2018 Visit Plan: Hypertension - well controlled - continue with current medications, continue with no added salt diet. Pt has been encouraged to exercise daily. The pt has been advised to call the office if there are any acute concerns about change in blood pressure readings at home. Hyperlipidemia - pt has been counseled about appropriate diet, exercise, and need for low fat food choices. I have discussed the need for the patient to take medications as prescribed. If the patient has negative side effects from the medication, they are to CALL the office and not abruptly discontinue the medication without discussion with a practitioner in the office. We will check labs in 3-6 months for follow up on the patient's chronic medical problem and to assure normal liver response to medications. Otitis Media - discussed the diagnosis with the patient, script sent electronically to the pharmacy for treatment of the infection. The disease course was discussed and the need to notify the clinic if symptoms do not improve or if they acutely worsen. Allergies - chronic - recommended pt to use allergy medication as prescribed. Pt has been counseled as to the appropriate use of the medication. Pt to call if allergy symptoms are not controlled with the medication. If using nasal spray, instructions as follows: Nasal spray- use twice daily, one spray per nostril twice daily, after 30 minutes, rinse out nose with saline spray.. Use opposite hand per nostril to spray in the nasal steroid allergy spray. 02/23/2018 Appointment: Claudia Redd WPtel: [address] [place] [address] (15 min) Moderate 02/23/2018 Patient Education: Patient Medication Summary Completed 02/23/2018 Patient Education: Hypertension Completed 02/23/2018 Patient Education: Cholesterol Management Completed 02/23/2018 Appointment: Claudia Redd WPtel: [address] [place] [address] (15 min) Moderate 02/16/2018 Visit Plan: Hypertension - well controlled - continue with current medications, continue with no added salt diet. Pt has been encouraged to exercise daily. The pt has been advised to call the office if there are any acute concerns about change in blood pressure readings at home. Qvcs-bhbgtjsse-swmigihrr flonase-call if symptoms do not resolve or if any worse 08/14/2017 Appointment: Claudia Redd WPtel: [address] [place] [address] (15 min) Moderate 08/14/2017 Patient Education: Patient Medication Summary Completed 08/14/2017 Appointment: Claudia Redd WPtel: [address] [place] [address] (15 min) Moderate 08/04/2017 Visit Plan: Hypertension - well controlled - continue with current medications, continue with no added salt diet. Pt has been encouraged to exercise daily. The pt has been advised to call the office if there are any acute concerns about change in blood pressure readings at home. Hyperlipidemia - pt has been counseled about appropriate diet, exercise, and need for low fat food choices. I have discussed the need for the patient to take medications as prescribed. If the patient has negative side effects from the medication, they are to CALL the office and not abruptly discontinue the medication without discussion with a practitioner in the office. We will check labs in 3-6 months for follow up on the patient's chronic medical problem and to assure normal liver response to medications. 12/18/2016 Patient Education: Patient Medication Summary Completed 12/18/2016 Appointment: Claudia Redd WPtel: [phone] [phone] (30 min) Complex 12/11/2016 Visit Plan: Hypertension - well controlled - continue with current medications, continue with no added salt diet. Pt has been encouraged to exercise daily. The pt has been advised to call the office if there are any acute concerns about change in blood pressure readings at home. Hyperlipidemia - pt has been counseled about appropriate diet, exercise, and need for low fat food choices. I have discussed the need for the patient to take medications as prescribed. If the patient has negative side effects from the medication, they are to CALL the office and not abruptly discontinue the medication without discussion with a practitioner in the office. We will check labs in 3-6 months for follow up on the patient's chronic medical problem and to assure normal liver response to medications. 06/13/2016 Appointment: Claudia Redd WPtel: [phone] [phone] (15 min) Moderate 06/13/2016 Patient Education: Patient Medication Summary Completed 06/13/2016 Visit Plan: Hypertension - well controlled - continue with current medications, continue with no added salt diet. Pt has been encouraged to exercise daily. The pt has been advised to call the office if there are any acute concerns about change in blood pressure readings at home. Hyperlipidemia - pt has been counseled about appropriate diet, exercise, and need for low fat food choices. I have discussed the need for the patient to take medications as prescribed. If the patient has negative side effects from the medication, they are to CALL the office and not abruptly discontinue the medication without discussion with a practitioner in the office. We will check labs in 3-6 months for follow up on the patient's chronic medical problem and to assure normal liver response to medications. Mild nonobstructive carotid stenosis-check carotid ultrasound 12/07/2015 Appointment: Claudia Redd WPtel: [phone] [phone] (15 min) Moderate 12/07/2015 Patient Education: Patient Medication Summary Completed 12/07/2015 Visit Plan: Hypertension - well controlled - continue with current medications, continue with no added salt diet. Pt has been encouraged to exercise daily. The pt has been advised to call the office if there are any acute concerns about change in blood pressure readings at home. Weight aapk-hbllkswtitqnj-zazarao has started eating more-recommend increasing calories and follow up in a few months Elevated PSA-sees Dr Arrieta next month 05/25/2015 Appointment: (15 min) Moderate 05/25/2015 Patient Education: Patient Medication Summary Completed 05/25/2015 Patient Education: Hypertension Completed 05/25/2015 Visit Plan: Well Adult - pt was counseled about diet, exercise, and encouraged to follow a heart healthy diet and increase activity level. The patient was instructed to RTC yearly for well adult exams and PRN for acute illnesses. The pt was also instructed to have yearly labs for check of cholesterol, thyroid, chem panel, CBC, and renal functioning. 11/24/2014 Visit Plan: Well Adult - pt was counseled about diet, exercise, and encouraged to follow a heart healthy diet and increase activity level. The patient was instructed to RTC yearly for well adult exams and PRN for acute illnesses. The pt was also instructed to have yearly labs for check of cholesterol, thyroid, chem panel, CBC, and renal functioning. 11/24/2014 Appointment: Claudia Redd WPtel: [address] [place], [place] [phone] [place] (S) New Patient 11/24/2014 Patient Education: Patient Medication Summary Completed 11/24/2014 Patient Education: Hypertension Completed 11/24/2014 Care Plan: Comp Metabolic Pending 11/24/2014 Care Plan: Lipid Pending 11/24/2014 Care Plan: Total Psa Pending 11/24/2014 Care Plan: Cbc With Differential Pending 11/24/2014 Care Plan: Tsh Pending 11/24/2014 Instructions Comment . Hypertension - well controlled - continue with current medications, continue with no added salt diet. Pt has been encouraged to exercise daily. The pt has been advised to call the office if there are any acute concerns about change in blood pressure readings at home. Hyperlipidemia - pt has been counseled about appropriate diet, exercise, and need for low fat food choices. I have discussed the need for the patient to take medications as prescribed. If the patient has negative side effects from the medication, they are to CALL the office and not abruptly discontinue the medication without discussion with a practitioner in the office. We will check labs in 3-6 months for follow up on the patient's chronic medical problem and to assure normal liver response to medications. AUGMENTIN TWIICE DAILY ZYRTEC 10MG DAILY LET ME KNOW IF YOUR EAR DOESN'T START FEELING BETTER CHECK LABS TODAY . Hypertension - well controlled - continue with current medications, continue with no added salt diet. Pt has been encouraged to exercise daily. The pt has been advised to call the office if there are any acute concerns about change in blood pressure readings at home. Hyperlipidemia - pt has been counseled about appropriate diet, exercise, and need for low fat food choices. I have discussed the need for the patient to take medications as prescribed. If the patient has negative side effects from the medication, they are to CALL the office and not abruptly discontinue the medication without discussion with a practitioner in the office. We will check labs in 3-6 months for follow up on the patient's chronic medical problem and to assure normal liver response to medications. Otitis Media - discussed the diagnosis with the patient, script sent electronically to the pharmacy for treatment of the infection. The disease course was discussed and the need to notify the clinic if symptoms do not improve or if they acutely worsen. Allergies - chronic - recommended pt to use allergy medication as prescribed. Pt has been counseled as to the appropriate use of the medication. Pt to call if allergy symptoms are not controlled with the medication. If using nasal spray, instructions as follows: Nasal spray- use twice daily, one spray per nostril twice daily, after 30 minutes, rinse out nose with saline spray.. Use opposite hand per nostril to spray in the nasal steroid allergy spray. . Hypertension - well controlled - continue with current medications, continue with no added salt diet. Pt has been encouraged to exercise daily. The pt has been advised to call the office if there are any acute concerns about change in blood pressure readings at home. Hyperlipidemia - pt has been counseled about appropriate diet, exercise, and need for low fat food choices. I have discussed the need for the patient to take medications as prescribed. If the patient has negative side effects from the medication, they are to CALL the office and not abruptly discontinue the medication without discussion with a practitioner in the office. We will check labs in 3-6 months for follow up on the patient's chronic medical problem and to assure normal liver response to medications. . Hypertension - well controlled - continue with current medications, continue with no added salt diet. Pt has been encouraged to exercise daily. The pt has been advised to call the office if there are any acute concerns about change in blood pressure readings at home. Mtvm-pnbymuinh-ovbpzyqdt flonase-call if symptoms do not resolve or if any worse . Hypertension - well controlled - continue with current medications, continue with no added salt diet. Pt has been encouraged to exercise daily. The pt has been advised to call the office if there are any acute concerns about change in blood pressure readings at home. Weight lkao-ieulvldujerxc-aqtzkkh has started eating more-recommend increasing calories and follow up in a few months Elevated PSA-sees Dr Arrieta next month . Well Adult - pt was counseled about diet, exercise, and encouraged to follow a heart healthy diet and increase activity level. The patient was instructed to RTC yearly for well adult exams and PRN for acute illnesses. The pt was also instructed to have yearly labs for check of cholesterol, thyroid, chem panel, CBC, and renal functioning. . Well Adult - pt was counseled about diet, exercise, and encouraged to follow a heart healthy diet and increase activity level. The patient was instructed to RTC yearly for well adult exams and PRN for acute illnesses. The pt was also instructed to have yearly labs for check of cholesterol, thyroid, chem panel, CBC, and renal functioning. carotid ultrasound - . Hypertension - well controlled - continue with current medications, continue with no added salt diet. Pt has been encouraged to exercise daily. The pt has been advised to call the office if there are any acute concerns about change in blood pressure readings at home. Hyperlipidemia - pt has been counseled about appropriate diet, exercise, and need for low fat food choices. I have discussed the need for the patient to take medications as prescribed. If the patient has negative side effects from the medication, they are to CALL the office and not abruptly discontinue the medication without discussion with a practitioner in the office. We will check labs in 3-6 months for follow up on the patient's chronic medical problem and to assure normal liver response to medications. Mild nonobstructive carotid stenosis-check carotid ultrasound [facility] -TAKE IT DAILY FOR ALLERGIES REPEAT ANTIBIOTIC FOR YOUR RIGHT EAR RECOMMEND APPOINTMENT WITH DR CORBIN . Hypertension - well controlled - continue with current medications, continue with no added salt diet. Pt has been encouraged to exercise daily. The pt has been advised to call the office if there are any acute concerns about change in blood pressure readings at home. Hyperlipidemia - pt has been counseled about appropriate diet, exercise, and need for low fat food choices. I have discussed the need for the patient to take medications as prescribed. If the patient has negative side effects from the medication, they are to CALL the office and not abruptly discontinue the medication without discussion with a practitioner in the office. We will check labs in 3-6 months for follow up on the patient's chronic medical problem and to assure normal liver response to medications. Otitis Media - discussed the diagnosis with the patient, script sent electronically to the pharmacy for treatment of the infection. Recommend appt with Dr Corbin for evaluation due to ongoing infection -patient will consider
--- OUTSIDE RECORDS SUMMARY | 2018-12-13 14:22 | XMS REPORT | CCD ---
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 [employer] Name Role Phone PP Unavailable CCM Unavailable Summary Purpose Interface Exchange Insurance Providers Payer name Policy type / Coverage type Covered republican ID Effective Begin Date Effective End Date WPS Medicare Part B Medicare Part B [id number] 2018 Unknown [employer] Medicare Part B [id number] Unknown Family history Daughter Diagnosis Age At Onset defect Unknown Brother Diagnosis Age At Onset Hyperlipidemia Unknown Mother Diagnosis Age At Onset Heart Attack Unknown Arthritis Unknown Father Diagnosis Age At Onset Hyperlipidemia Unknown Social History Social History Element Codes Description Effective Dates Marital status Unknown Maryann 02/23/2018 Number of children Unknown 3 11/24/[address]: 4010133 Quit over 10 years ago 200411/24/2014 Allergies, [...] Start Date Stop Date Status Fill Instructions cefdinir 300 mg capsule RxNorm: 003625 1 Capsule(s) PO BID 08/24/2018 09/02/2018 Active Lipitor 40 mg tablet RxNorm: 241728 TAKE 1 TABLET EVERY DAY 04/29/2018 04/23/2019 Active aspirin 81 mg tablet RxNorm: 527056 2 Tablet(s) PO daily 02/23/2018 No Stop Date Active Fish Oil 1,000 mg capsule RxNorm: 1 Capsule(s) PO BID 02/23/2018 No Stop Date Active Augmentin 875 mg-125 mg tablet RxNorm: 088086 1 Tablet(s) PO BID 02/23/2018 03/01/2018 Inactive Zyrtec 10 mg tablet RxNorm: 4582020 1 Tablet(s) PO daily 02/23/2018 03/24/2018 Inactive Protonix 40 mg tablet,delayed release RxNorm: 420600 TAKE 1 TABLET EVERY DAY 02/15/2018 02/09/2019 Active metoprolol succinate ER 50 mg tablet,extended release 24 hr RxNorm: 283142 TAKE 1 TABLET EVERY DAY 02/15/2018 02/09/2019 Active lisinopril 5 mg tablet RxNorm: 296526 TAKE 1 TABLET EVERY DAY 02/15/2018 02/09/2019 Active folic acid 1 mg tablet RxNorm: 098183 TAKE 1 TABLET EVERY DAY 02/08/2018 02/02/2019 Active Keflex 500 mg capsule RxNorm: 693549 1 Capsule(s) PO TID 09/21/2017 09/27/2017 Inactive Flonase Allergy Relief 50 mcg/actuation nasal spray,suspension RxNorm: 5930008 2 [place] NASAL daily 09/21/2017 10/04/2017 Inactive Keflex 500 mg capsule RxNorm: 291714 1 Capsule(s) PO TID 09/21/2017 09/20/2017 Inactive Flonase Allergy Relief 50 mcg/actuation nasal spray,suspension RxNorm: 6259472 2 [place] NASAL daily 09/21/2017 09/20/2017 Inactive Lipitor 40 mg tablet RxNorm: 344648 TAKE 1 TABLET EVERY DAY 03/23/2017 03/17/2018 Inactive lisinopril 5 mg tablet RxNorm: 118112 TAKE 1 TABLET EVERY DAY 01/22/2017 01/16/2018 Inactive Protonix 40 mg tablet,delayed release RxNorm: 710215 TAKE 1 TABLET EVERY DAY 01/22/2017 01/16/2018 Inactive metoprolol succinate ER 50 mg tablet,extended release 24 hr RxNorm: 055860 TAKE 1 TABLET EVERY DAY 01/22/2017 01/16/2018 Inactive folic acid 1 mg tablet RxNorm: 658457 TAKE 1 TABLET EVERY DAY 08/22/2016 08/16/2017 Inactive metoprolol succinate ER 50 mg tablet,extended release 24 hr RxNorm: 671724 1 Tablet(s) PO daily 03/17/2016 01/21/2017 Inactive Lipitor 40 mg tablet RxNorm: 577548 1 Tablet(s) PO daily 03/17/2016 03/11/2017 Inactive lisinopril 5 mg tablet RxNorm: 979707 1 Tablet(s) PO daily 03/17/2016 01/21/2017 Inactive Protonix 40 mg tablet,delayed release RxNorm: 223197 1 Tablet(s) PO daily 03/17/2016 01/21/2017 Inactive folic acid 1 mg tablet RxNorm: 440164 1 Tablet(s) PO daily 08/15/2015 08/08/2016 Inactive Lipitor 40 mg tablet RxNorm: 211836 1 Tablet(s) PO daily 08/15/2015 03/16/2016 Inactive Lipitor 40 mg tablet RxNorm: 010182 1 Tablet(s) PO daily 07/30/2015 08/14/2015 Inactive folic acid 1 mg tablet RxNorm: 088365 1 Tablet(s) PO daily 07/30/2015 08/14/2015 Inactive metoprolol succinate ER 50 mg tablet,extended release 24 hr RxNorm: 921992 1 Tablet(s) PO daily 07/27/2015 03/16/2016 Inactive Protonix 40 mg tablet,delayed release RxNorm: 816793 1 Tablet(s) PO daily 07/27/2015 03/16/2016 Inactive lisinopril 5 mg tablet RxNorm: 037963 1 Tablet(s) PO daily 07/27/2015 03/16/2016 Inactive folic acid 1 mg tablet RxNorm: 250996 1 Tablet(s) PO daily 07/27/2015 07/29/2015 Inactive Protonix 40 mg tablet,delayed release RxNorm: 662955 1 Tablet(s) PO daily 03/12/2015 07/26/2015 Inactive metoprolol succinate ER 50 mg tablet,extended release 24 hr RxNorm: 505758 1 Tablet(s) PO daily 03/12/2015 07/26/2015 Inactive folic acid 1 mg tablet RxNorm: 561559 1 Tablet(s) PO daily 03/12/2015 07/26/2015 Inactive lisinopril 5 mg tablet RxNorm: 860727 1 Tablet(s) PO daily 03/12/2015 07/26/2015 Inactive Protonix 40 mg tablet,delayed release RxNorm: 286825 1 Tablet(s) PO daily 01/31/2015 03/11/2015 Inactive metoprolol succinate ER 50 mg tablet,extended release 24 hr RxNorm: 017971 1 Tablet(s) PO daily 01/31/2015 01/30/2015 Inactive lisinopril 5 mg tablet RxNorm: 915298 1 Tablet(s) PO daily 01/31/2015 03/11/2015 Inactive metoprolol succinate ER 50 mg tablet,extended release 24 hr RxNorm: 687180 1 Tablet(s) PO daily 01/31/2015 03/11/2015 Inactive folic acid 1 mg tablet RxNorm: 483430 1 Tablet(s) PO daily 01/31/2015 03/11/2015 Inactive Stress tablet RxNorm: oral No Start Date Active Co Q-10 50 mg capsule RxNorm: 651221 1 Capsule(s) PO BID No Start Date Active Fish Oil 1,000 mg capsule RxNorm: 1 Capsule(s) PO daily No Start Date 02/22/2018 Inactive Protonix 40 mg tablet,delayed release RxNorm: 465046 1 Tablet(s) PO daily No Start Date 01/30/2015 Inactive lisinopril 5 mg tablet RxNorm: 714839 1 Tablet(s) PO daily No Start Date 01/30/2015 Inactive aspirin 81 mg tablet RxNorm: 833864 1 Tablet(s) PO daily No Start Date 02/22/2018 Inactive folic acid 1 mg tablet RxNorm: 935196 1 Tablet(s) PO daily No Start Date 01/30/2015 Inactive metoprolol tartrate 50 mg tablet RxNorm: 651507 1 Tablet(s) PO daily No Start Date 01/31/2015 Inactive Lipitor 40 mg tablet RxNorm: 269674 1 Tablet(s) PO daily No Start Date [...] 31.3 pg 02/23/2018 Cbc With Differential Ord2 Young% 8.9 % 02/23/2018 Cbc With Differential Ord2 [...] 1.71 K/ul 02/23/2018 Cbc With Differential Ord2 Young ABS# 0.5 K/ul 02/23/2018 Cbc With Differential Ord2 Eos ABS# 0.1 K/ul 02/23/2018 Cbc With Differential Ord2 Baso ABS# 0.0 K/ul 02/23/2018 Tsh Ord6 TSH (3rd IS) 2.67 uIU/mL 02/23/2018 Lipid Ord30 CHOL 131 mg/dL 02/23/2018 Lipid Ord30 HDL 56.0 mg/dl 02/23/2018 Lipid Ord30 TRIG 67 mg/dL 02/23/2018 Lipid Ord30 LDL 62 mg/dL 02/23/2018 Lipid Ord30 C/HDL 2.3 Ratio 02/23/2018 Comp Metabolic Sqf088 NA 141 mEq/L 02/23/2018 Comp Metabolic Owr076 K 4.6 mEq/L 02/23/2018 Comp Metabolic Edi009 CL 105 mEq/L 02/23/2018 Comp Metabolic Zmm285 CO2 27.0 mEq/L 02/23/2018 Comp Metabolic Qam209 ANION GAP 14 02/23/2018 Comp Metabolic Bsi259 GLUCOSE 90 mg/dL 02/23/2018 Comp Metabolic Qob706 Creat 1.5 mg/dL 02/23/2018 Comp Metabolic Lge543 eGFR 51 ml/min/1.73m2 02/23/2018 Comp Metabolic Hyg955 BUN 31 mg/dL 02/23/2018 Comp Metabolic Pys492 B/C Ratio 21.4 Ratio 02/23/2018 Comp Metabolic Zpw491 CALCIUM 9.6 mg/dL 02/23/2018 Comp Metabolic Bxt497 ALK PHOS 62 U/L 02/23/2018 Comp Metabolic Zif329 AST(SGOT) 20 U/L 02/23/2018 Comp Metabolic Lkw291 ALT(SGPT) 17 U/L 02/23/2018 Comp Metabolic Wbm364 BILI T 0.8 mg/dL 02/23/2018 Comp Metabolic Eji510 ALBUMIN 4.3 g/dL 02/23/2018 Comp Metabolic Rsk610 TPRO 6.4 g/dL 02/23/2018 Comp Metabolic Uop600 GLOB 2.1 g/dL 02/23/2018 Comp Metabolic Iqt473 A/G Ratio 2.0 Ratio 02/23/2018 Comp Metabolic Pjf015 Osmo 287 mOsmo 02/23/2018 Lipid Ord30 CHOL [...] 32.0 pg 12/18/2016 Cbc With Differential Ord2 Young% 7.9 % 12/18/2016 Cbc With Differential Ord2 [...] 1.78 K/ul 12/18/2016 Cbc With Differential Ord2 Young ABS# 0.5 K/ul 12/18/2016 Cbc With Differential Ord2 Eos ABS# 0.2 K/ul 12/18/2016 Cbc With Differential Ord2 Baso ABS# 0.0 K/ul 12/18/2016 Comp Metabolic Mud857 NA 140 mEq/L 12/18/2016 Comp Metabolic Smu662 K 4.4 mEq/L 12/18/2016 Comp Metabolic Dul942 CL 105 mEq/L 12/18/2016 Comp Metabolic Ptq708 CO2 27.0 mEq/L 12/18/2016 Comp Metabolic Beq953 ANION GAP 12 12/18/2016 Comp Metabolic Fuq293 GLUCOSE 89 mg/dL 12/18/2016 Comp Metabolic Alz358 Creat 1.4 mg/dL 12/18/2016 Comp Metabolic Ufz205 eGFR 51 ml/min/1.73m2 12/18/2016 Comp Metabolic Mkx027 BUN 24 mg/dL 12/18/2016 Comp Metabolic Smh481 B/C Ratio 16.7 Ratio 12/18/2016 Comp Metabolic Upi865 CALCIUM 9.3 mg/dL 12/18/2016 Comp Metabolic Sva018 ALK PHOS 59 U/L 12/18/2016 Comp Metabolic Hng073 AST(SGOT) 18 U/L 12/18/2016 Comp Metabolic Wnp916 ALT(SGPT) 15 U/L 12/18/2016 Comp Metabolic Dbo296 BILI T 0.8 mg/dL 12/18/2016 Comp Metabolic Ivy805 ALBUMIN 4.0 g/dL 12/18/2016 Comp Metabolic Xqh576 TPRO 6.2 g/dL 12/18/2016 Comp Metabolic Bhq654 GLOB 2.2 g/dL 12/18/2016 Comp Metabolic Gwr936 A/G Ratio 1.8 Ratio 12/18/2016 Comp Metabolic Zzt064 Osmo 283 mOsmo 12/18/2016 Tsh Ord6 hTSH II 1.98 uIU/mL 12/18/2016 Comp Metabolic Nwi095 NA 139 mEq/L 06/13/2016 Comp Metabolic Rar726 K 4.5 mEq/L 06/13/2016 Comp Metabolic Gkg276 CL 104 mEq/L 06/13/2016 Comp Metabolic Ywb162 CO2 29.0 mEq/L 06/13/2016 Comp Metabolic Tpk672 ANION GAP 11 06/13/2016 Comp Metabolic Vka921 GLUCOSE 92 mg/dL 06/13/2016 Comp Metabolic Juo657 Creat 1.3 mg/dL 06/13/2016 Comp Metabolic Npn022 eGFR 58 ml/min/1.73m2 06/13/2016 Comp Metabolic Rix297 BUN 24 mg/dL 06/13/2016 Comp Metabolic Kik529 B/C Ratio 18.6 Ratio 06/13/2016 Comp Metabolic Ayn975 CALCIUM 9.9 mg/dL 06/13/2016 Comp Metabolic Peh524 ALK PHOS 65 U/L 06/13/2016 Comp Metabolic Usa586 AST(SGOT) 19 U/L 06/13/2016 Comp Metabolic Bjq393 ALT(SGPT) 19 U/L 06/13/2016 Comp Metabolic Llu467 BILI T 0.7 mg/dL 06/13/2016 Comp Metabolic Rkc217 ALBUMIN 4.5 g/dL 06/13/2016 Comp Metabolic Fqh050 TPRO 7.0 g/dL 06/13/2016 Comp Metabolic Ggq075 GLOB 2.5 g/dL 06/13/2016 Comp Metabolic Ftw116 A/G Ratio 1.8 Ratio 06/13/2016 Comp Metabolic Yql901 Osmo 281 mOsmo 06/13/2016 Cbc With Differential [...] 31.6 pg 06/13/2016 Cbc With Differential Ord2 Young% 8.8 % 06/13/2016 Cbc With Differential Ord2 [...] 1.93 K/ul 06/13/2016 Cbc With Differential Ord2 Young ABS# 0.6 K/ul 06/13/2016 Cbc With Differential [...] 31.1 pg 12/07/2015 Cbc With Differential Ord2 Young% 7.7 % 12/07/2015 Cbc With Differential Ord2 [...] 1.63 K/ul 12/07/2015 Cbc With Differential Ord2 Young ABS# 0.4 K/ul 12/07/2015 Cbc With Differential Ord2 Eos ABS# 0.1 K/ul 12/07/2015 Cbc With Differential Ord2 Baso ABS# 0.0 K/ul 12/07/2015 Tsh Ord6 hTSH II 3.01 uIU/mL 12/07/2015 Lipid Ord30 CHOL 117 mg/dL 12/07/2015 Lipid Ord30 HDL 53.0 mg/dl 12/07/2015 Lipid Ord30 TRIG 68 mg/dL 12/07/2015 Lipid Ord30 LDL 50 mg/dL 12/07/2015 Lipid Ord30 C/HDL 2.2 Ratio 12/07/2015 Comp Metabolic Ssu906 NA 140 mEq/L 12/07/2015 Comp Metabolic Ton126 K 4.5 mEq/L 12/07/2015 Comp Metabolic Lrf197 CL 106 mEq/L 12/07/2015 Comp Metabolic Iya282 CO2 27.0 mEq/L 12/07/2015 Comp Metabolic Nld642 ANION GAP 12 12/07/2015 Comp Metabolic Zte335 GLUCOSE 92 mg/dL 12/07/2015 Comp Metabolic Lmy223 Creat 1.3 mg/dL 12/07/2015 Comp Metabolic Cyo321 eGFR 57 ml/min/1.73m2 12/07/2015 Comp Metabolic Bbo951 BUN 28 mg/dL 12/07/2015 Comp Metabolic Hdq836 B/C Ratio 21.2 Ratio 12/07/2015 Comp Metabolic Dct300 CALCIUM 10.0 mg/dL 12/07/2015 Comp Metabolic Ktt169 ALK PHOS 58 U/L 12/07/2015 Comp Metabolic Wud841 AST(SGOT) 19 U/L 12/07/2015 Comp Metabolic Nmf351 ALT(SGPT) 15 U/L 12/07/2015 Comp Metabolic Goq722 BILI T 0.9 mg/dL 12/07/2015 Comp Metabolic Tsh299 ALBUMIN 4.3 g/dL 12/07/2015 Comp Metabolic Uer900 TPRO 6.8 g/dL 12/07/2015 Comp Metabolic Gfh689 GLOB 2.5 g/dL 12/07/2015 Comp Metabolic Thx374 A/G Ratio 1.8 Ratio 12/07/2015 Comp Metabolic Luz953 Osmo 285 mOsmo 12/07/2015 Cbc With Differential [...] 30.9 pg 07/26/2015 Cbc With Differential Ord2 Young% 8.6 % 07/26/2015 Cbc With Differential Ord2 [...] 1.66 K/ul 07/26/2015 Cbc With Differential Ord2 Young ABS# 0.5 K/ul 07/26/2015 Cbc With Differential [...] hTSH II 3.01 uIU/mL 05/25/2015 Comp Metabolic Zum382 NA 140 mEq/L 05/25/2015 Comp Metabolic Iwf339 K 4.3 mEq/L 05/25/2015 Comp Metabolic Iwj875 CL 104 mEq/L 05/25/2015 Comp Metabolic Vzt074 CO2 26.0 mEq/L 05/25/2015 Comp Metabolic Wng812 ANION GAP 14 05/25/2015 Comp Metabolic Smt137 GLUCOSE 77 mg/dL 05/25/2015 Comp Metabolic Rqd769 Creat 1.2 mg/dL 05/25/2015 Comp Metabolic Wei560 eGFR 62 ml/min/1.73m2 05/25/2015 Comp Metabolic Vjd524 BUN 23 mg/dL 05/25/2015 Comp Metabolic Sua111 B/C Ratio 18.7 Ratio 05/25/2015 Comp Metabolic Owk533 CALCIUM 9.4 mg/dL 05/25/2015 Comp Metabolic Exs002 ALK PHOS 67 U/L 05/25/2015 Comp Metabolic Rrw560 AST(SGOT) 20 U/L 05/25/2015 Comp Metabolic Red292 ALT(SGPT) 20 U/L 05/25/2015 Comp Metabolic Bzo980 BILI T 0.7 mg/dL 05/25/2015 Comp Metabolic Mbr692 ALBUMIN 4.2 g/dL 05/25/2015 Comp Metabolic Ksp491 TPRO 6.5 g/dL 05/25/2015 Comp Metabolic Ydi042 GLOB 2.3 g/dL 05/25/2015 Comp Metabolic Pdw459 A/G Ratio 1.8 Ratio 05/25/2015 Comp Metabolic Bjz816 Osmo 282 mOsmo 05/25/2015 Cbc With Differential [...] 30.9 pg 05/25/2015 Cbc With Differential Ord2 Young% 7.2 % 05/25/2015 Cbc With Differential Ord2 [...] 1.70 K/ul 05/25/2015 Cbc With Differential Ord2 Young ABS# 0.4 K/ul 05/25/2015 Cbc With Differential [...] effusion 08/24/2018 None Full Exam - General 1994 Ears/Nose/Throat otoscopic exam Tympanic membrane: air-fluid level 08/24/2018 None Full Exam - General 1995 Ears/Nose/Throat lips/teeth/gingiva Overall: benign lips 08/24/2018 None Full Exam - General 1994 Ears/Nose/Throat lips/teeth/gingiva Overall: normal dentition 08/24/2018 None Full Exam - General 1995 Ears/Nose/Throat lips/teeth/gingiva Overall: benign gingiva 08/24/2018 None [...] lips 12/18/2016 None Full Exam - General 1995 Ears/Nose/Throat lips/teeth/gingiva Overall: normal dentition 12/18/2016 None Full Exam - General 1995 Ears/Nose/Throat lips/teeth/gingiva Overall: benign gingiva 12/18/2016 None [...] masses 05/25/2015 None Full Exam - General 1995 Ears/Nose/Throat external ear Overall: normal appearance 05/25/2015 [...] 1: 140/80 Code: 8480-6 BMI: 22.2 Code: 90945-8 Heart Rate 1: 77 bpm Height: 5'7" SpO2: 98% Weight: 142 lbs 02/23/2018 Blood Pressure 1: 140/70 Code: 8480-6 BMI: 22.1 Code: 63038-9 Heart Rate 1: 77 bpm Height: 5'7" SpO2: 99% Weight: 141 lbs 08/14/2017 Blood Pressure 1: 126/78 Code: 8480-6 BMI: 22.9 Code: 84549-3 Heart Rate 1: 76 bpm Height: 5'7" SpO2: 99% Weight: 146 lbs 8 oz 12/18/2016 Blood Pressure 1: 122/72 Code: 8480-6 BMI: 22.2 Code: 77655-6 Heart Rate 1: 74 bpm Height: 5'7" SpO2: 98% Weight: 142 lbs 06/13/2016 Blood Pressure 1: 124/76 Code: 8480-6 BMI: 22.6 Code: 41737-8 Heart Rate 1: 79 bpm Height: 5'7" SpO2: 99% Weight: 144 lbs 12/07/2015 Blood Pressure 1: 122/64 Code: 8480-6 BMI: 22.4 Code: 78111-2 Heart Rate 1: 75 bpm Height: 5'7" SpO2: 98% Weight: 143 lbs 05/25/2015 Blood Pressure 1: 134/78 Code: 8480-6 BMI: 22.6 Code: 11854-7 Heart Rate 1: 74 bpm Height: 5'7" Weight: 144 lbs 11/24/2014 Blood Pressure 1: 130/72 Code: 8480-6 BMI: 23.6 Code: 93615-4 Heart Rate 1: 68 bpm Height: 5'7" [...] data Encounters Encounter Performer Location Codes Date ([id number]) [id number] EST. PATIENT, LEVEL IV Diagnosis: Essential (primary) hypertension[ICD10: I10] Diagnosis: Chronic mucoid otitis media, right ear[ICD10: H65.31] Diagnosis: Mixed hyperlipidemia[ICD10: E78.2] Claudia Yen MD, [facility] CPT- 4: 61985 08/24/2018 [id number]) [id number] EST. PATIENT, LEVEL IV Diagnosis: Essential (primary) hypertension[ICD10: I10] Diagnosis: Mixed hyperlipidemia[ICD10: E78.2] Diagnosis: Other allergic rhinitis[ICD10: J30.89] Diagnosis: Chronic mucoid otitis media, right ear[ICD10: H65.31] Claudia Yen MD, [facility] CPT-4: 50354 02/23/2018 ([id number]) 02006 EST. PATIENT, LEVEL III Diagnosis: Essential (primary) hypertension[ICD10: I10] Diagnosis: Other allergic rhinitis[ICD10: J30.89] Claudia Yen MD, [facility] CPT-4: 86740 08/14/2017 [id number]) 82011 EST. PATIENT, LEVEL III Diagnosis: Essential (primary) hypertension[ICD10: I10] Diagnosis: Mixed hyperlipidemia[ICD10: E78.2] [facility] CPT- 4: 96400 12/18/2016 ([id number]) 30722 EST. PATIENT, LEVEL III Diagnosis: Essential (primary) hypertension[ICD10: I10] Diagnosis: Mixed hyperlipidemia[ICD10: E78.2] [facility] CPT- 4: 05645 06/13/2016 ([id number]) 27719 EST. PATIENT, LEVEL IV Diagnosis: Essential (primary) hypertension[ICD10: I10] Diagnosis: Mixed hyperlipidemia[ICD10: E78.2] Diagnosis: Occlusion and stenosis of bilateral carotid arteries[ICD10: I65.23] [facility] CPT-4: 77262 12/07/2015 ([id number]) 53787 EST. PATIENT, LEVEL IV Diagnosis: Essential (primary) hypertension[ICD10: I10] Diagnosis: Abnormal weight loss[ICD10: R63.4] Diagnosis: Elevated prostate specific antigen [PSA][ICD10: R97.2] Claudia Yen MD, [facility] CPT-4: 57242 05/25/2015 ([id number]) INIT PM E/M NEW PAT 65+ YRS Diagnosis: Routine medical exam[ICD9: V70.0] Amna Yen MD, [facility] CPT- 4: 74949 11/24/2014 Plan of Care Planned Activity Notes [...] to ongoing infection -patient will consider 08/24/2018 Patient Education: Patient Medication Summary Completed 08/24/2018 Patient Education: Hypertension Completed 08/24/2018 Patient Education: Cholesterol Management Completed 08/24/2018 Appointment: Claudia Redd WPtel: [phone] [phone] [place] (15 min) Moderate 08/19/2018 Appointment: Leia La WPtel: [phone] [phone] [place] (30 min) Complex 05/11/2018 Visit Plan: Hypertension [...] allergy spray. 02/23/2018 Appointment: Claudia Redd WPtel: [phone] [phone] [place] (15 min) Moderate 02/23/2018 Patient Education: Patient Medication Summary Completed 02/23/2018 Patient Education: Hypertension Completed 02/23/2018 Patient Education: Cholesterol Management Completed 02/23/2018 Appointment: Claudia Redd WPtel: [facility] [phone] (15 min) Moderate 02/16/2018 Visit Plan: Hypertension - well controlled - continue with current medications, continue with no added salt diet. Pt has been encouraged to exercise daily. The pt has been advised to call the office if there are any acute concerns about change in blood pressure readings at home. [id number] flonase-call if symptoms do not resolve or if any worse 08/14/2017 Appointment: Claudia Redd WPtel: [facility] [place] [phone] (15 min) Moderate 08/14/2017 Patient Education: Patient Medication Summary Completed 08/14/2017 Appointment: Claudia Redd WPtel: [address] [place] [address] (15 min) Moderate 08/04/2017 Visit Plan: Hypertension [...] Summary Completed 12/18/2016 Appointment: Claudia Redd WPtel: [facility] [phone] (30 min) Complex 12/11/2016 Visit Plan: Hypertension [...] to medications. 06/13/2016 Appointment: [facility] [phone] [facility] [phone] (15 min) Moderate 06/13/2016 Patient Education: Patient [...] carotid ultrasound 12/07/2015 Appointment: [facility] Redd [facility] [phone] [facility] [phone] [place] (15 min) Moderate 12/07/2015 Patient Education: Patient Medication Summary Completed 12/07/2015 Visit Plan: Hypertension - well controlled - continue with current medications, continue with no added salt diet. Pt has been encouraged to exercise daily. The pt has been advised to call the office if there are any acute concerns about change in blood pressure readings at home. Weight iklr-waffosqtesrng-djzcvqb has started eating more-recommend increasing calories and [...] renal functioning. 11/24/2014 Appointment: [facility] Redd [facility] [phone] [facility] [phone] [place] ([place]) New Patient 11/24/2014 Patient Education: [...] change in blood pressure readings at home. [id number] flonase-call if symptoms do not resolve or if any worse . Hypertension - well controlled - continue with current medications, continue with no added salt diet. Pt has been encouraged to exercise daily. The pt has been advised to call the office if there are any acute concerns about change in blood pressure readings at home. Weight askt-yyaljakplqzwd-tlrluig has started eating more-recommend increasing calories and [...]
--- OUTSIDE RECORDS SUMMARY | 2018-12-13 14:24 | XMS REPORT | CCD ---
Author Author [facility]na [facility]en Organization [facility] Address [address] [place] [address] Phone Care Team Providers Care Construction Rep Name Role Phone PP Unavailable CCM Unavailable Summary Purpose Interface Exchange Insurance Providers Payer name Policy type / Coverage type Covered republican ID Effective Begin Date Effective End Date WPS Medicare Part B Medicare Part B [id number] 2018 Unknown [employer] Medicare Part B [id number] Unknown Family history Daughter Diagnosis Age At Onset defect Unknown Brother Diagnosis Age At Onset Hyperlipidemia Unknown Mother Diagnosis Age At Onset Heart Attack Unknown Arthritis Unknown Father Diagnosis Age At Onset Hyperlipidemia Unknown Social History Social History Element Codes Description Effective Dates Marital status Unknown Maryann 02/23/2018 Number of children Unknown 3 11/24/[address]: 7667666 Quit over 10 years ago 200411/24/2014 Allergies, [...] Fill Instructions cefdinir 300 mg capsule RxNorm: 723747 1 Capsule(s) PO BID 08/24/2018 09/02/2018 Active Lipitor 40 mg tablet RxNorm: 923631 TAKE 1 TABLET EVERY DAY 04/29/2018 04/23/2019 Active aspirin 81 mg tablet RxNorm: 653103 2 Tablet(s) PO daily 02/23/2018 No Stop Date Active Fish Oil 1,000 mg capsule RxNorm: 1 Capsule(s) PO BID 02/23/2018 No Stop Date Active Augmentin 875 mg-125 mg tablet RxNorm: 698466 1 Tablet(s) PO BID 02/23/2018 03/01/2018 Inactive Zyrtec 10 mg tablet RxNorm: 3384180 1 Tablet(s) PO daily 02/23/2018 03/24/2018 Inactive Protonix 40 mg tablet,delayed release RxNorm: 304352 TAKE 1 TABLET EVERY DAY 02/15/2018 02/09/2019 Active metoprolol succinate ER 50 mg tablet,extended release 24 hr RxNorm: 434850 TAKE 1 TABLET EVERY DAY 02/15/2018 02/09/2019 Active lisinopril 5 mg tablet RxNorm: 915799 TAKE 1 TABLET EVERY DAY 02/15/2018 02/09/2019 Active folic acid 1 mg tablet RxNorm: 030389 TAKE 1 TABLET EVERY DAY 02/08/2018 02/02/2019 Active Keflex 500 mg capsule RxNorm: 726215 1 Capsule(s) PO TID 09/21/2017 09/27/2017 Inactive Flonase Allergy Relief 50 mcg/actuation nasal spray,suspension RxNorm: 2709084 2 [place] NASAL daily 09/21/2017 10/04/2017 Inactive Keflex 500 mg capsule RxNorm: 004105 1 Capsule(s) PO TID 09/21/2017 09/20/2017 Inactive Flonase Allergy Relief 50 mcg/actuation nasal spray,suspension RxNorm: 2411466 2 [place] NASAL daily 09/21/2017 09/20/2017 Inactive Lipitor 40 mg tablet RxNorm: 204509 TAKE 1 TABLET EVERY DAY 03/23/2017 03/17/2018 Inactive lisinopril 5 mg tablet RxNorm: 103582 TAKE 1 TABLET EVERY DAY 01/22/2017 01/16/2018 Inactive Protonix 40 mg tablet,delayed release RxNorm: 229465 TAKE 1 TABLET EVERY DAY 01/22/2017 01/16/2018 Inactive metoprolol succinate ER 50 mg tablet,extended release 24 hr RxNorm: 767068 TAKE 1 TABLET EVERY DAY 01/22/2017 01/16/2018 Inactive folic acid 1 mg tablet RxNorm: 006430 TAKE 1 TABLET EVERY DAY 08/22/2016 08/16/2017 Inactive metoprolol succinate ER 50 mg tablet,extended release 24 hr RxNorm: 504356 1 Tablet(s) PO daily 03/17/2016 01/21/2017 Inactive Lipitor 40 mg tablet RxNorm: 983093 1 Tablet(s) PO daily 03/17/2016 03/11/2017 Inactive lisinopril 5 mg tablet RxNorm: 977678 1 Tablet(s) PO daily 03/17/2016 01/21/2017 Inactive Protonix 40 mg tablet,delayed release RxNorm: 489003 1 Tablet(s) PO daily 03/17/2016 01/21/2017 Inactive folic acid 1 mg tablet RxNorm: 288510 1 Tablet(s) PO daily 08/15/2015 08/08/2016 Inactive Lipitor 40 mg tablet RxNorm: 333977 1 Tablet(s) PO daily 08/15/2015 03/16/2016 Inactive Lipitor 40 mg tablet RxNorm: 174828 1 Tablet(s) PO daily 07/30/2015 08/14/2015 Inactive folic acid 1 mg tablet RxNorm: 113747 1 Tablet(s) PO daily 07/30/2015 08/14/2015 Inactive metoprolol succinate ER 50 mg tablet,extended release 24 hr RxNorm: 611244 1 Tablet(s) PO daily 07/27/2015 03/16/2016 Inactive Protonix 40 mg tablet,delayed release RxNorm: 053875 1 Tablet(s) PO daily 07/27/2015 03/16/2016 Inactive lisinopril 5 mg tablet RxNorm: 051871 1 Tablet(s) PO daily 07/27/2015 03/16/2016 Inactive folic acid 1 mg tablet RxNorm: 508454 1 Tablet(s) PO daily 07/27/2015 07/29/2015 Inactive Protonix 40 mg tablet,delayed release RxNorm: 254969 1 Tablet(s) PO daily 03/12/2015 07/26/2015 Inactive metoprolol succinate ER 50 mg tablet,extended release 24 hr RxNorm: 911764 1 Tablet(s) PO daily 03/12/2015 07/26/2015 Inactive folic acid 1 mg tablet RxNorm: 361823 1 Tablet(s) PO daily 03/12/2015 07/26/2015 Inactive lisinopril 5 mg tablet RxNorm: 914564 1 Tablet(s) PO daily 03/12/2015 07/26/2015 Inactive Protonix 40 mg tablet,delayed release RxNorm: 613082 1 Tablet(s) PO daily 01/31/2015 03/11/2015 Inactive metoprolol succinate ER 50 mg tablet,extended release 24 hr RxNorm: 143672 1 Tablet(s) PO daily 01/31/2015 01/30/2015 Inactive lisinopril 5 mg tablet RxNorm: 710210 1 Tablet(s) PO daily 01/31/2015 03/11/2015 Inactive metoprolol succinate ER 50 mg tablet,extended release 24 hr RxNorm: 090201 1 Tablet(s) PO daily 01/31/2015 03/11/2015 Inactive folic acid 1 mg tablet RxNorm: 748794 1 Tablet(s) PO daily 01/31/2015 03/11/2015 Inactive Stress tablet RxNorm: oral No Start Date Active Co Q-10 50 mg capsule RxNorm: 970244 1 Capsule(s) PO BID No Start Date Active Fish Oil 1,000 mg capsule RxNorm: 1 Capsule(s) PO daily No Start Date 02/22/2018 Inactive Protonix 40 mg tablet,delayed release RxNorm: 350305 1 Tablet(s) PO daily No Start Date 01/30/2015 Inactive lisinopril 5 mg tablet RxNorm: 742060 1 Tablet(s) PO daily No Start Date 01/30/2015 Inactive aspirin 81 mg tablet RxNorm: 614388 1 Tablet(s) PO daily No Start Date 02/22/2018 Inactive folic acid 1 mg tablet RxNorm: 452365 1 Tablet(s) PO daily No Start Date 01/30/2015 Inactive metoprolol tartrate 50 mg tablet RxNorm: 810033 1 Tablet(s) PO daily No Start Date 01/31/2015 Inactive Lipitor 40 mg tablet RxNorm: 858859 1 Tablet(s) PO daily No Start Date [...] 31.3 pg 02/23/2018 Cbc With Differential Ord2 [place]% 8.9 % 02/23/2018 Cbc With Differential Ord2 [...] 1.71 K/ul 02/23/2018 Cbc With Differential Ord2 [place] ABS# 0.5 K/ul 02/23/2018 Cbc With Differential Ord2 Eos ABS# 0.1 K/ul 02/23/2018 Cbc With Differential Ord2 Baso ABS# 0.0 K/ul 02/23/2018 Tsh Ord6 TSH (3rd IS) 2.67 uIU/mL 02/23/2018 Lipid Ord30 CHOL 131 mg/dL 02/23/2018 Lipid Ord30 HDL 56.0 mg/dl 02/23/2018 Lipid Ord30 TRIG 67 mg/dL 02/23/2018 Lipid Ord30 LDL 62 mg/dL 02/23/2018 Lipid Ord30 C/HDL 2.3 Ratio 02/23/2018 Comp Metabolic Dek159 NA 141 mEq/L 02/23/2018 Comp Metabolic Jyd140 K 4.6 mEq/L 02/23/2018 Comp Metabolic Cki241 CL 105 mEq/L 02/23/2018 Comp Metabolic Dop413 CO2 27.0 mEq/L 02/23/2018 Comp Metabolic Tbr477 ANION GAP 14 02/23/2018 Comp Metabolic Ixa613 GLUCOSE 90 mg/dL 02/23/2018 Comp Metabolic Cry808 Creat 1.5 mg/dL 02/23/2018 Comp Metabolic Bny708 eGFR 51 ml/min/1.73m2 02/23/2018 Comp Metabolic Qjb806 BUN 31 mg/dL 02/23/2018 Comp Metabolic Ogy817 B/C Ratio 21.4 Ratio 02/23/2018 Comp Metabolic Ozt932 CALCIUM 9.6 mg/dL 02/23/2018 Comp Metabolic Syg969 ALK PHOS 62 U/L 02/23/2018 Comp Metabolic Usc637 AST(SGOT) 20 U/L 02/23/2018 Comp Metabolic San238 ALT(SGPT) 17 U/L 02/23/2018 Comp Metabolic Psy445 BILI T 0.8 mg/dL 02/23/2018 Comp Metabolic Pcn521 ALBUMIN 4.3 g/dL 02/23/2018 Comp Metabolic Rfy005 TPRO 6.4 g/dL 02/23/2018 Comp Metabolic Buu527 GLOB 2.1 g/dL 02/23/2018 Comp Metabolic Wxh122 A/G Ratio 2.0 Ratio 02/23/2018 Comp Metabolic Abu308 Osmo 287 mOsmo 02/23/2018 Lipid Ord30 CHOL [...] 32.0 pg 12/18/2016 Cbc With Differential Ord2 [place]% 7.9 % 12/18/2016 Cbc With Differential Ord2 [...] 1.78 K/ul 12/18/2016 Cbc With Differential Ord2 [place] ABS# 0.5 K/ul 12/18/2016 Cbc With Differential Ord2 Eos ABS# 0.2 K/ul 12/18/2016 Cbc With Differential Ord2 Baso ABS# 0.0 K/ul 12/18/2016 Comp Metabolic Qou018 NA 140 mEq/L 12/18/2016 Comp Metabolic Ebv447 K 4.4 mEq/L 12/18/2016 Comp Metabolic Swf693 CL 105 mEq/L 12/18/2016 Comp Metabolic Sot799 CO2 27.0 mEq/L 12/18/2016 Comp Metabolic Unl865 ANION GAP 12 12/18/2016 Comp Metabolic Fzh819 GLUCOSE 89 mg/dL 12/18/2016 Comp Metabolic Ewk955 Creat 1.4 mg/dL 12/18/2016 Comp Metabolic Jpe088 eGFR 51 ml/min/1.73m2 12/18/2016 Comp Metabolic Qkg637 BUN 24 mg/dL 12/18/2016 Comp Metabolic Bfw993 B/C Ratio 16.7 Ratio 12/18/2016 Comp Metabolic Ltf752 CALCIUM 9.3 mg/dL 12/18/2016 Comp Metabolic Kvj857 ALK PHOS 59 U/L 12/18/2016 Comp Metabolic Bwi821 AST(SGOT) 18 U/L 12/18/2016 Comp Metabolic Nka848 ALT(SGPT) 15 U/L 12/18/2016 Comp Metabolic Did179 BILI T 0.8 mg/dL 12/18/2016 Comp Metabolic Mdi589 ALBUMIN 4.0 g/dL 12/18/2016 Comp Metabolic Ogl146 TPRO 6.2 g/dL 12/18/2016 Comp Metabolic Abv458 GLOB 2.2 g/dL 12/18/2016 Comp Metabolic Bsn444 A/G Ratio 1.8 Ratio 12/18/2016 Comp Metabolic Psu728 Osmo 283 mOsmo 12/18/2016 Tsh Ord6 hTSH II 1.98 uIU/mL 12/18/2016 Comp Metabolic Whs027 NA 139 mEq/L 06/13/2016 Comp Metabolic Mqs790 K 4.5 mEq/L 06/13/2016 Comp Metabolic Bgy541 CL 104 mEq/L 06/13/2016 Comp Metabolic Exa170 CO2 29.0 mEq/L 06/13/2016 Comp Metabolic Oum769 ANION GAP 11 06/13/2016 Comp Metabolic Dvk848 GLUCOSE 92 mg/dL 06/13/2016 Comp Metabolic Gzf183 Creat 1.3 mg/dL 06/13/2016 Comp Metabolic Icp893 eGFR 58 ml/min/1.73m2 06/13/2016 Comp Metabolic Bir795 BUN 24 mg/dL 06/13/2016 Comp Metabolic Bwm927 B/C Ratio 18.6 Ratio 06/13/2016 Comp Metabolic Gap435 CALCIUM 9.9 mg/dL 06/13/2016 Comp Metabolic Ksa393 ALK PHOS 65 U/L 06/13/2016 Comp Metabolic Wpl650 AST(SGOT) 19 U/L 06/13/2016 Comp Metabolic Vvv311 ALT(SGPT) 19 U/L 06/13/2016 Comp Metabolic Lyw356 BILI T 0.7 mg/dL 06/13/2016 Comp Metabolic Ilt955 ALBUMIN 4.5 g/dL 06/13/2016 Comp Metabolic Hpt681 TPRO 7.0 g/dL 06/13/2016 Comp Metabolic Rlj941 GLOB 2.5 g/dL 06/13/2016 Comp Metabolic Ldc851 A/G Ratio 1.8 Ratio 06/13/2016 Comp Metabolic Rhg748 Osmo 281 mOsmo 06/13/2016 Cbc With Differential [...] 31.6 pg 06/13/2016 Cbc With Differential Ord2 [place]% 8.8 % 06/13/2016 Cbc With Differential Ord2 [...] 1.93 K/ul 06/13/2016 Cbc With Differential Ord2 [place] ABS# 0.6 K/ul 06/13/2016 Cbc With Differential [...] 31.1 pg 12/07/2015 Cbc With Differential Ord2 [place]% 7.7 % 12/07/2015 Cbc With Differential Ord2 [...] 1.63 K/ul 12/07/2015 Cbc With Differential Ord2 [place] ABS# 0.4 K/ul 12/07/2015 Cbc With Differential Ord2 Eos ABS# 0.1 K/ul 12/07/2015 Cbc With Differential Ord2 Baso ABS# 0.0 K/ul 12/07/2015 Tsh Ord6 hTSH II 3.01 uIU/mL 12/07/2015 Lipid Ord30 CHOL 117 mg/dL 12/07/2015 Lipid Ord30 HDL 53.0 mg/dl 12/07/2015 Lipid Ord30 TRIG 68 mg/dL 12/07/2015 Lipid Ord30 LDL 50 mg/dL 12/07/2015 Lipid Ord30 C/HDL 2.2 Ratio 12/07/2015 Comp Metabolic Cbm977 NA 140 mEq/L 12/07/2015 Comp Metabolic Xfu586 K 4.5 mEq/L 12/07/2015 Comp Metabolic Jnx401 CL 106 mEq/L 12/07/2015 Comp Metabolic Kkb121 CO2 27.0 mEq/L 12/07/2015 Comp Metabolic Mwi763 ANION GAP 12 12/07/2015 Comp Metabolic Ciy125 GLUCOSE 92 mg/dL 12/07/2015 Comp Metabolic Xcs535 Creat 1.3 mg/dL 12/07/2015 Comp Metabolic Cmd193 eGFR 57 ml/min/1.73m2 12/07/2015 Comp Metabolic Xeb922 BUN 28 mg/dL 12/07/2015 Comp Metabolic Sff709 B/C Ratio 21.2 Ratio 12/07/2015 Comp Metabolic Isw888 CALCIUM 10.0 mg/dL 12/07/2015 Comp Metabolic Msq095 ALK PHOS 58 U/L 12/07/2015 Comp Metabolic Emu862 AST(SGOT) 19 U/L 12/07/2015 Comp Metabolic Iic110 ALT(SGPT) 15 U/L 12/07/2015 Comp Metabolic Mam105 BILI T 0.9 mg/dL 12/07/2015 Comp Metabolic Tdi797 ALBUMIN 4.3 g/dL 12/07/2015 Comp Metabolic Szc480 TPRO 6.8 g/dL 12/07/2015 Comp Metabolic Woq020 GLOB 2.5 g/dL 12/07/2015 Comp Metabolic Dsf947 A/G Ratio 1.8 Ratio 12/07/2015 Comp Metabolic Xtq151 Osmo 285 mOsmo 12/07/2015 Cbc With Differential [...] 30.9 pg 07/26/2015 Cbc With Differential Ord2 [place]% 8.6 % 07/26/2015 Cbc With Differential Ord2 [...] 1.66 K/ul 07/26/2015 Cbc With Differential Ord2 [place] ABS# 0.5 K/ul 07/26/2015 Cbc With Differential [...] hTSH II 3.01 uIU/mL 05/25/2015 Comp Metabolic Eia410 NA 140 mEq/L 05/25/2015 Comp Metabolic Emq623 K 4.3 mEq/L 05/25/2015 Comp Metabolic Xwi935 CL 104 mEq/L 05/25/2015 Comp Metabolic Jva056 CO2 26.0 mEq/L 05/25/2015 Comp Metabolic Dev754 ANION GAP 14 05/25/2015 Comp Metabolic Pnc388 GLUCOSE 77 mg/dL 05/25/2015 Comp Metabolic Qvh885 Creat 1.2 mg/dL 05/25/2015 Comp Metabolic Qhy010 eGFR 62 ml/min/1.73m2 05/25/2015 Comp Metabolic Chc217 BUN 23 mg/dL 05/25/2015 Comp Metabolic Seg189 B/C Ratio 18.7 Ratio 05/25/2015 Comp Metabolic Gqn414 CALCIUM 9.4 mg/dL 05/25/2015 Comp Metabolic Cxc753 ALK PHOS 67 U/L 05/25/2015 Comp Metabolic Grj270 AST(SGOT) 20 U/L 05/25/2015 Comp Metabolic Rao113 ALT(SGPT) 20 U/L 05/25/2015 Comp Metabolic Fqg548 BILI T 0.7 mg/dL 05/25/2015 Comp Metabolic Kds312 ALBUMIN 4.2 g/dL 05/25/2015 Comp Metabolic Kbt059 TPRO 6.5 g/dL 05/25/2015 Comp Metabolic Jdf198 GLOB 2.3 g/dL 05/25/2015 Comp Metabolic Mea148 A/G Ratio 1.8 Ratio 05/25/2015 Comp Metabolic Mmc177 Osmo 282 mOsmo 05/25/2015 Cbc With Differential [...] 30.9 pg 05/25/2015 Cbc With Differential Ord2 [place]% 7.2 % 05/25/2015 Cbc With Differential Ord2 [...] 1.70 K/ul 05/25/2015 Cbc With Differential Ord2 [place] ABS# 0.4 K/ul 05/25/2015 Cbc With Differential [...] 1: 140/80 Code: 8480-6 BMI: 22.2 Code: 86168-5 Heart Rate 1: 77 bpm Height: 5'7" SpO2: 98% Weight: 142 lbs 02/23/2018 Blood Pressure 1: 140/70 Code: 8480-6 BMI: 22.1 Code: 42664-4 Heart Rate 1: 77 bpm Height: 5'7" SpO2: 99% Weight: 141 lbs 08/14/2017 Blood Pressure 1: 126/78 Code: 8480-6 BMI: 22.9 Code: 47650-7 Heart Rate 1: 76 bpm Height: 5'7" SpO2: 99% Weight: 146 lbs 8 oz 12/18/2016 Blood Pressure 1: 122/72 Code: 8480-6 BMI: 22.2 Code: 22078-9 Heart Rate 1: 74 bpm Height: 5'7" SpO2: 98% Weight: 142 lbs 06/13/2016 Blood Pressure 1: 124/76 Code: 8480-6 BMI: 22.6 Code: 23124-7 Heart Rate 1: 79 bpm Height: 5'7" SpO2: 99% Weight: 144 lbs 12/07/2015 Blood Pressure 1: 122/64 Code: 8480-6 BMI: 22.4 Code: 66765-7 Heart Rate 1: 75 bpm Height: 5'7" SpO2: 98% Weight: 143 lbs 05/25/2015 Blood Pressure 1: 134/78 Code: 8480-6 BMI: 22.6 Code: 29571-2 Heart Rate 1: 74 bpm Height: 5'7" Weight: 144 lbs 11/24/2014 Blood Pressure 1: 130/72 Code: 8480-6 BMI: 23.6 Code: 58721-6 Heart Rate 1: 68 bpm Height: 5'7" [...] data Encounters Encounter Performer Location Codes Date ([id number]) 04524 EST. PATIENT, LEVEL IV Diagnosis: Essential (primary) hypertension[ICD10: I10] Diagnosis: Chronic mucoid otitis media, right ear[ICD10: H65.31] Diagnosis: Mixed hyperlipidemia[ICD10: E78.2] Claudia Yen MD, [facility] CPT- 4: 02713 08/24/2018 [id number]) 62320 EST. PATIENT, LEVEL IV Diagnosis: Essential (primary) hypertension[ICD10: I10] Diagnosis: Mixed hyperlipidemia[ICD10: E78.2] Diagnosis: Other allergic rhinitis[ICD10: J30.89] Diagnosis: Chronic mucoid otitis media, right ear[ICD10: H65.31] Claudia Yen MD, [facility] CPT-4: 60900 02/23/2018 ([id number]) 85640 EST. PATIENT, LEVEL III Diagnosis: Essential (primary) hypertension[ICD10: I10] Diagnosis: Other allergic rhinitis[ICD10: J30.89] Claudia Yen MD, [facility] CPT-4: 13461 08/14/2017 [id number]) 62718 EST. PATIENT, LEVEL III Diagnosis: Essential (primary) hypertension[ICD10: I10] Diagnosis: Mixed hyperlipidemia[ICD10: E78.2] [facility] CPT- 4: 22722 12/18/2016 ([id number]) 43471 EST. PATIENT, LEVEL III Diagnosis: Essential (primary) hypertension[ICD10: I10] Diagnosis: Mixed hyperlipidemia[ICD10: E78.2] [facility] CPT- 4: 98404 06/13/2016 ([id number]) 41973 EST. PATIENT, LEVEL IV Diagnosis: Essential (primary) hypertension[ICD10: I10] Diagnosis: Mixed hyperlipidemia[ICD10: E78.2] Diagnosis: Occlusion and stenosis of bilateral carotid arteries[ICD10: I65.23] [facility] CPT-4: 84005 12/07/2015 ([id number]) 12251 EST. PATIENT, LEVEL IV Diagnosis: Essential (primary) hypertension[ICD10: I10] Diagnosis: Abnormal weight loss[ICD10: R63.4] Diagnosis: Elevated prostate specific antigen [PSA][ICD10: R97.2] Claudia Yen MD, [facility] CPT-4: 13821 05/25/2015 ([id number]) INIT PM E/M NEW PAT 65+ YRS Diagnosis: Routine medical exam[ICD9: V70.0] Amna Yen MD, [facility] CPT- 4: 48877 11/24/2014 Plan of Care Planned Activity Notes [...] Management Completed 08/24/2018 Appointment: Claudia Redd WPtel: [phone] [phone] [place] (15 min) Moderate 08/19/2018 Appointment: Leia La WPtel: [phone] [phone] [place] (30 min) Complex 05/11/2018 Visit Plan: [...] spray. 02/23/2018 Appointment: Claudia Redd WPtel: [phone] [phone] [place] (15 min) Moderate 02/23/2018 Patient Education: Patient Medication Summary Completed 02/23/2018 Patient Education: Hypertension Completed 02/23/2018 Patient Education: Cholesterol Management Completed 02/23/2018 Appointment: Claudia Redd WPtel: [phone] (15 min) Moderate 02/16/2018 Visit Plan: Hypertension - well controlled - continue with current medications, continue with no added salt diet. Pt has been encouraged to exercise daily. The pt has been advised to call the office if there are any acute concerns about change in blood pressure readings at home. [id number]-dpimroewj flonase-call if symptoms do not resolve or if any worse 08/14/2017 Appointment: Claudia Redd WPtel: [facility] [place] [phone] (15 min) Moderate 08/14/2017 Patient Education: Patient Medication Summary Completed 08/14/2017 Appointment: Claudia Redd WPtel: [address] [place] [address] (15 min) Moderate 08/04/2017 Visit Plan: Hypertension [...] Summary Completed 12/18/2016 Appointment: Claudia Redd WPtel: [phone] (30 min) Complex 12/11/2016 Visit Plan: Hypertension [...] to medications. 06/13/2016 [phone] [facility] min) Moderate 06/13/2016 Patient Education: Patient [...] carotid ultrasound 12/07/2015 [phone] [phone] [place] (15 min) Moderate 12/07/2015 Patient Education: Patient Medication Summary Completed 12/07/2015 Visit Plan: Hypertension - well controlled - continue with current medications, continue with no added salt diet. Pt has been encouraged to exercise daily. The pt has been advised to call the office if there are any acute concerns about change in blood pressure readings at home. Weight pzdx-yzarvwpoyptgs-rutucil has started eating more-recommend increasing calories and [...] renal functioning. 11/24/2014 [facility]ment: [phone] [phone] [place] ([place] New Patient 11/24/2014 Patient Education: [...] change in blood pressure readings at home. [id number]-dwgxqefwt flonase-call if symptoms do not resolve or if any worse . Hypertension - well controlled - continue with current medications, continue with no added salt diet. Pt has been encouraged to exercise daily. The pt has been advised to call the office if there are any acute concerns about change in blood pressure readings at home. Weight nvgs-zvmxbcvslhyrc-jjjzsxy has started eating more-recommend increasing calories and [...]
--- OUTSIDE RECORDS SUMMARY | 2018-12-13 14:26 | XMS REPORT | CCD ---
Author Author [facility] Organization [facility] Address [address] [place] [address] Phone Care Team Providers Care Manager Spring Name Role Phone PP Unavailable CCM Unavailable Summary Purpose Interface Exchange Insurance Providers Payer name Policy type / Coverage type Covered libertarian ID Effective Begin Date Effective End Date WPS Medicare Part B Medicare Part B [id number] 2018 Unknown [employer] Medicare Part B [id number] Unknown Family history Daughter Diagnosis Age At Onset defect Unknown Brother Diagnosis Age At Onset Hyperlipidemia Unknown Mother Diagnosis Age At Onset Heart Attack Unknown Arthritis Unknown Father Diagnosis Age At Onset Hyperlipidemia Unknown Social History Social History Element Codes Description Effective Dates Marital status Unknown Maryann 02/23/2018 Number of children Unknown 3 11/24/[address]: 2628341 Quit over 10 years ago 200411/24/2014 Allergies, [...] Start Date Stop Date Status Fill Instructions Lipitor 40 mg tablet RxNorm: 076430 TAKE 1 TABLET EVERY DAY 04/29/2018 04/23/2019 Active aspirin 81 mg tablet RxNorm: 663637 2 Tablet(s) PO daily 02/23/2018 No Stop Date Active Fish Oil 1,000 mg capsule RxNorm: 1 Capsule(s) PO BID 02/23/2018 No Stop Date Active Augmentin 875 mg-125 mg tablet RxNorm: 449038 1 Tablet(s) PO BID 02/23/2018 03/01/2018 Inactive Zyrtec 10 mg tablet RxNorm: 2843891 1 Tablet(s) PO daily 02/23/2018 03/24/2018 Inactive Protonix 40 mg tablet,delayed release RxNorm: 776992 TAKE 1 TABLET EVERY DAY 02/15/2018 02/09/2019 Active metoprolol succinate ER 50 mg tablet,extended release 24 hr RxNorm: 514901 TAKE 1 TABLET EVERY DAY 02/15/2018 02/09/2019 Active lisinopril 5 mg tablet RxNorm: 568898 TAKE 1 TABLET EVERY DAY 02/15/2018 02/09/2019 Active folic acid 1 mg tablet RxNorm: 165303 TAKE 1 TABLET EVERY DAY 02/08/2018 02/02/2019 Active Keflex 500 mg capsule RxNorm: 943946 1 Capsule(s) PO TID 09/21/2017 09/27/2017 Inactive Flonase Allergy Relief 50 mcg/actuation nasal spray,suspension RxNorm: 3908103 2 [place] NASAL daily 09/21/2017 10/04/2017 Inactive Keflex 500 mg capsule RxNorm: 710823 1 Capsule(s) PO TID 09/21/2017 09/20/2017 Inactive Flonase Allergy Relief 50 mcg/actuation nasal spray,suspension RxNorm: 5866802 2 [place] NASAL daily 09/21/2017 09/20/2017 Inactive Lipitor 40 mg tablet RxNorm: 894416 TAKE 1 TABLET EVERY DAY 03/23/2017 03/17/2018 Inactive lisinopril 5 mg tablet RxNorm: 835146 TAKE 1 TABLET EVERY DAY 01/22/2017 01/16/2018 Inactive Protonix 40 mg tablet,delayed release RxNorm: 879870 TAKE 1 TABLET EVERY DAY 01/22/2017 01/16/2018 Inactive metoprolol succinate ER 50 mg tablet,extended release 24 hr RxNorm: 952670 TAKE 1 TABLET EVERY DAY 01/22/2017 01/16/2018 Inactive folic acid 1 mg tablet RxNorm: 048880 TAKE 1 TABLET EVERY DAY 08/22/2016 08/16/2017 Inactive metoprolol succinate ER 50 mg tablet,extended release 24 hr RxNorm: 785921 1 Tablet(s) PO daily 03/17/2016 01/21/2017 Inactive Lipitor 40 mg tablet RxNorm: 790981 1 Tablet(s) PO daily 03/17/2016 03/11/2017 Inactive lisinopril 5 mg tablet RxNorm: 949638 1 Tablet(s) PO daily 03/17/2016 01/21/2017 Inactive Protonix 40 mg tablet,delayed release RxNorm: 117029 1 Tablet(s) PO daily 03/17/2016 01/21/2017 Inactive folic acid 1 mg tablet RxNorm: 493310 1 Tablet(s) PO daily 08/15/2015 08/08/2016 Inactive Lipitor 40 mg tablet RxNorm: 002121 1 Tablet(s) PO daily 08/15/2015 03/16/2016 Inactive Lipitor 40 mg tablet RxNorm: 935605 1 Tablet(s) PO daily 07/30/2015 08/14/2015 Inactive folic acid 1 mg tablet RxNorm: 213543 1 Tablet(s) PO daily 07/30/2015 08/14/2015 Inactive metoprolol succinate ER 50 mg tablet,extended release 24 hr RxNorm: 255459 1 Tablet(s) PO daily 07/27/2015 03/16/2016 Inactive Protonix 40 mg tablet,delayed release RxNorm: 746428 1 Tablet(s) PO daily 07/27/2015 03/16/2016 Inactive lisinopril 5 mg tablet RxNorm: 962549 1 Tablet(s) PO daily 07/27/2015 03/16/2016 Inactive folic acid 1 mg tablet RxNorm: 985394 1 Tablet(s) PO daily 07/27/2015 07/29/2015 Inactive Protonix 40 mg tablet,delayed release RxNorm: 704491 1 Tablet(s) PO daily 03/12/2015 07/26/2015 Inactive metoprolol succinate ER 50 mg tablet,extended release 24 hr RxNorm: 565984 1 Tablet(s) PO daily 03/12/2015 07/26/2015 Inactive folic acid 1 mg tablet RxNorm: 142981 1 Tablet(s) PO daily 03/12/2015 07/26/2015 Inactive lisinopril 5 mg tablet RxNorm: 029667 1 Tablet(s) PO daily 03/12/2015 07/26/2015 Inactive Protonix 40 mg tablet,delayed release RxNorm: 860757 1 Tablet(s) PO daily 01/31/2015 03/11/2015 Inactive metoprolol succinate ER 50 mg tablet,extended release 24 hr RxNorm: 013550 1 Tablet(s) PO daily 01/31/2015 01/30/2015 Inactive lisinopril 5 mg tablet RxNorm: 162666 1 Tablet(s) PO daily 01/31/2015 03/11/2015 Inactive metoprolol succinate ER 50 mg tablet,extended release 24 hr RxNorm: 540629 1 Tablet(s) PO daily 01/31/2015 03/11/2015 Inactive folic acid 1 mg tablet RxNorm: 230296 1 Tablet(s) PO daily 01/31/2015 03/11/2015 Inactive Stress tablet RxNorm: oral No Start Date Active Co Q-10 50 mg capsule RxNorm: 755443 1 Capsule(s) PO BID No Start Date Active Fish Oil 1,000 mg capsule RxNorm: 1 Capsule(s) PO daily No Start Date 02/22/2018 Inactive Protonix 40 mg tablet,delayed release RxNorm: 917112 1 Tablet(s) PO daily No Start Date 01/30/2015 Inactive lisinopril 5 mg tablet RxNorm: 057431 1 Tablet(s) PO daily No Start Date 01/30/2015 Inactive aspirin 81 mg tablet RxNorm: 131604 1 Tablet(s) PO daily No Start Date 02/22/2018 Inactive folic acid 1 mg tablet RxNorm: 413269 1 Tablet(s) PO daily No Start Date 01/30/2015 Inactive metoprolol tartrate 50 mg tablet RxNorm: 222736 1 Tablet(s) PO daily No Start Date 01/31/2015 Inactive Lipitor 40 mg tablet RxNorm: 494710 1 Tablet(s) PO daily No Start Date 07/29/2015 Inactive Medication Administered No Medication Administered data Immunizations No Immunization data Assessments Condition Codes Effective Dates Mixed hyperlipidemia ICD-10: E78.2 ICD-9: 272.2 02/23/2018 Chronic mucoid otitis media, right ear ICD-10: H65.31 ICD-9: 381.20 02/23/2018 Essential (primary) hypertension ICD-10: I10 ICD-9: 401.9 02/23/2018 Other allergic rhinitis ICD-10: J30.89 ICD-9: 477.8 02/23/2018 Occlusion and stenosis of bilateral carotid arteries ICD-10: I65.23 ICD-9: 433.10 12/07/2015 Abnormal weight loss ICD-10: R63.4 ICD-9: 783.21 05/25/2015 Elevated prostate specific antigen [PSA] ICD-10: R97.2 ICD-9: 790.93 05/25/2015 ESSENTIAL HYPERTENSION ICD-9: 401.9 11/24/2014 Routine medical exam ICD-9: V70.0 11/24/2014 Reason For Visit Reason For Visit Effective Dates Notes hypertension 02/23/2018 hypertension 08/14/2017 hypertension 12/18/2016 hypertension [...] 31.3 pg 02/23/2018 Cbc With Differential Ord2 [place]% 8.9 % 02/23/2018 Cbc With Differential Ord2 MCHC 33.0 pg 02/23/2018 Cbc With Differential Ord2 Eos% 2.1 % 02/23/2018 Cbc With Differential Ord2 Baso% 0.2 % 02/23/2018 Cbc With Differential Ord2 PLT 160 K/ul 02/23/2018 Cbc With Differential Ord2 Neut ABS# 3.68 K/ul 02/23/2018 Cbc With Differential Ord2 RDW 13.6 % 02/23/2018 Cbc With Differential Ord2 Lymph ABS# 1.71 K/ul 02/23/2018 Cbc With Differential Ord2 [place] ABS# 0.5 K/ul 02/23/2018 Cbc With Differential Ord2 Eos ABS# 0.1 K/ul 02/23/2018 Cbc With Differential Ord2 Baso ABS# 0.0 K/ul 02/23/2018 Tsh Ord6 TSH (3rd IS) 2.67 uIU/mL 02/23/2018 Lipid Ord30 CHOL 131 mg/dL 02/23/2018 Lipid Ord30 HDL 56.0 mg/dl 02/23/2018 Lipid Ord30 TRIG 67 mg/dL 02/23/2018 Lipid Ord30 LDL 62 mg/dL 02/23/2018 Lipid Ord30 C/HDL 2.3 Ratio 02/23/2018 Comp Metabolic Szu017 NA 141 mEq/L 02/23/2018 Comp Metabolic Nka048 K 4.6 mEq/L 02/23/2018 Comp Metabolic Arq241 CL 105 mEq/L 02/23/2018 Comp Metabolic Ejz953 CO2 27.0 mEq/L 02/23/2018 Comp Metabolic Onw193 ANION GAP 14 02/23/2018 Comp Metabolic Zbk240 GLUCOSE 90 mg/dL 02/23/2018 Comp Metabolic Kzb952 Creat 1.5 mg/dL 02/23/2018 Comp Metabolic Fvk874 eGFR 51 ml/min/1.73m2 02/23/2018 Comp Metabolic Jud023 BUN 31 mg/dL 02/23/2018 Comp Metabolic Oep628 B/C Ratio 21.4 Ratio 02/23/2018 Comp Metabolic Jdw737 CALCIUM 9.6 mg/dL 02/23/2018 Comp Metabolic Phj082 ALK PHOS 62 U/L 02/23/2018 Comp Metabolic Btg811 AST(SGOT) 20 U/L 02/23/2018 Comp Metabolic Quy867 ALT(SGPT) 17 U/L 02/23/2018 Comp Metabolic Hvr879 BILI T 0.8 mg/dL 02/23/2018 Comp Metabolic Zpf900 ALBUMIN 4.3 g/dL 02/23/2018 Comp Metabolic Klr117 TPRO 6.4 g/dL 02/23/2018 Comp Metabolic Tgl554 GLOB 2.1 g/dL 02/23/2018 Comp Metabolic Gic906 A/G Ratio 2.0 Ratio 02/23/2018 Comp Metabolic Qhy777 Osmo 287 mOsmo 02/23/2018 Lipid Ord30 CHOL [...] 32.0 pg 12/18/2016 Cbc With Differential Ord2 [place]% 7.9 % 12/18/2016 Cbc With Differential Ord2 MCHC 34.1 pg 12/18/2016 Cbc With Differential Ord2 Eos% 3.4 % 12/18/2016 Cbc With Differential Ord2 Baso% 0.3 % 12/18/2016 Cbc With Differential Ord2 PLT 156 K/ul 12/18/2016 Cbc With Differential Ord2 RDW 13.6 % 12/18/2016 Cbc With Differential Ord2 Neut ABS# 3.93 K/ul 12/18/2016 Cbc With Differential Ord2 Lymph ABS# 1.78 K/ul 12/18/2016 Cbc With Differential Ord2 [place] ABS# 0.5 K/ul 12/18/2016 Cbc With Differential Ord2 Eos ABS# 0.2 K/ul 12/18/2016 Cbc With Differential Ord2 Baso ABS# 0.0 K/ul 12/18/2016 Comp Metabolic Hyz578 NA 140 mEq/L 12/18/2016 Comp Metabolic Qfq048 K 4.4 mEq/L 12/18/2016 Comp Metabolic Hhm473 CL 105 mEq/L 12/18/2016 Comp Metabolic Zpp473 CO2 27.0 mEq/L 12/18/2016 Comp Metabolic Hwc459 ANION GAP 12 12/18/2016 Comp Metabolic Twh495 GLUCOSE 89 mg/dL 12/18/2016 Comp Metabolic Psi521 Creat 1.4 mg/dL 12/18/2016 Comp Metabolic Qwg669 eGFR 51 ml/min/1.73m2 12/18/2016 Comp Metabolic Sgb847 BUN 24 mg/dL 12/18/2016 Comp Metabolic Fia581 B/C Ratio 16.7 Ratio 12/18/2016 Comp Metabolic Gil065 CALCIUM 9.3 mg/dL 12/18/2016 Comp Metabolic Vnm994 ALK PHOS 59 U/L 12/18/2016 Comp Metabolic Fmm233 AST(SGOT) 18 U/L 12/18/2016 Comp Metabolic Ivi115 ALT(SGPT) 15 U/L 12/18/2016 Comp Metabolic Ztb324 BILI T 0.8 mg/dL 12/18/2016 Comp Metabolic Eky628 ALBUMIN 4.0 g/dL 12/18/2016 Comp Metabolic Sux759 TPRO 6.2 g/dL 12/18/2016 Comp Metabolic Rxu340 GLOB 2.2 g/dL 12/18/2016 Comp Metabolic Xzq053 A/G Ratio 1.8 Ratio 12/18/2016 Comp Metabolic Vhl770 Osmo 283 mOsmo 12/18/2016 Tsh Ord6 hTSH II 1.98 uIU/mL 12/18/2016 Comp Metabolic Uim151 NA 139 mEq/L 06/13/2016 Comp Metabolic Atq874 K 4.5 mEq/L 06/13/2016 Comp Metabolic Wlk932 CL 104 mEq/L 06/13/2016 Comp Metabolic Fyu719 CO2 29.0 mEq/L 06/13/2016 Comp Metabolic Gdv786 ANION GAP 11 06/13/2016 Comp Metabolic Gkn962 GLUCOSE 92 mg/dL 06/13/2016 Comp Metabolic Rrw803 Creat 1.3 mg/dL 06/13/2016 Comp Metabolic Ebh109 eGFR 58 ml/min/1.73m2 06/13/2016 Comp Metabolic Vmu322 BUN 24 mg/dL 06/13/2016 Comp Metabolic Snd822 B/C Ratio 18.6 Ratio 06/13/2016 Comp Metabolic Gvj620 CALCIUM 9.9 mg/dL 06/13/2016 Comp Metabolic Cov721 ALK PHOS 65 U/L 06/13/2016 Comp Metabolic Hnz679 AST(SGOT) 19 U/L 06/13/2016 Comp Metabolic Cvx618 ALT(SGPT) 19 U/L 06/13/2016 Comp Metabolic Pdu549 BILI T 0.7 mg/dL 06/13/2016 Comp Metabolic Dyo904 ALBUMIN 4.5 g/dL 06/13/2016 Comp Metabolic Ddt441 TPRO 7.0 g/dL 06/13/2016 Comp Metabolic Zrz161 GLOB 2.5 g/dL 06/13/2016 Comp Metabolic Kvr486 A/G Ratio 1.8 Ratio 06/13/2016 Comp Metabolic Izj663 Osmo 281 mOsmo 06/13/2016 Cbc With Differential [...] 31.6 pg 06/13/2016 Cbc With Differential Ord2 [place]% 8.8 % 06/13/2016 Cbc With Differential Ord2 [...] 1.93 K/ul 06/13/2016 Cbc With Differential Ord2 [place] ABS# 0.6 K/ul 06/13/2016 Cbc With Differential [...] 14.6 g/dl 12/07/2015 Cbc With Differential Ord2 Neut% 60.6 % 12/07/2015 Cbc With Differential Ord2 HCT 43.9 % 12/07/2015 Cbc With Differential Ord2 MCV 93.6 fl 12/07/2015 Cbc With Differential Ord2 Lymph% 29.3 % 12/07/2015 Cbc With Differential Ord2 MCH 31.1 pg 12/07/2015 Cbc With Differential Ord2 [place]% 7.7 % 12/07/2015 Cbc With Differential Ord2 Eos% 2.2 % 12/07/2015 Cbc With Differential Ord2 MCHC 33.3 pg 12/07/2015 Cbc With Differential Ord2 Baso% 0.2 % 12/07/2015 Cbc With Differential Ord2 PLT 167 K/ul 12/07/2015 Cbc With Differential Ord2 RDW 13.7 % 12/07/2015 Cbc With Differential Ord2 Neut ABS# 3.38 K/ul 12/07/2015 Cbc With Differential Ord2 Lymph ABS# 1.63 K/ul 12/07/2015 Cbc With Differential Ord2 [place] ABS# 0.4 K/ul 12/07/2015 Cbc With Differential Ord2 Eos ABS# 0.1 K/ul 12/07/2015 Cbc With Differential Ord2 Baso ABS# 0.0 K/ul 12/07/2015 Tsh Ord6 hTSH II 3.01 uIU/mL 12/07/2015 Lipid Ord30 CHOL 117 mg/dL 12/07/2015 Lipid Ord30 HDL 53.0 mg/dl 12/07/2015 Lipid Ord30 TRIG 68 mg/dL 12/07/2015 Lipid Ord30 LDL 50 mg/dL 12/07/2015 Lipid Ord30 C/HDL 2.2 Ratio 12/07/2015 Comp Metabolic Ynw081 NA 140 mEq/L 12/07/2015 Comp Metabolic Xje797 K 4.5 mEq/L 12/07/2015 Comp Metabolic Vnj984 CL 106 mEq/L 12/07/2015 Comp Metabolic Qtn101 CO2 27.0 mEq/L 12/07/2015 Comp Metabolic Vff281 ANION GAP 12 12/07/2015 Comp Metabolic Tmx195 GLUCOSE 92 mg/dL 12/07/2015 Comp Metabolic Fit615 Creat 1.3 mg/dL 12/07/2015 Comp Metabolic Spt631 eGFR 57 ml/min/1.73m2 12/07/2015 Comp Metabolic Olm664 BUN 28 mg/dL 12/07/2015 Comp Metabolic Rwj101 B/C Ratio 21.2 Ratio 12/07/2015 Comp Metabolic Aie129 CALCIUM 10.0 mg/dL 12/07/2015 Comp Metabolic Kbo927 ALK PHOS 58 U/L 12/07/2015 Comp Metabolic Luf243 AST(SGOT) 19 U/L 12/07/2015 Comp Metabolic Slg957 ALT(SGPT) 15 U/L 12/07/2015 Comp Metabolic Xjh030 BILI T 0.9 mg/dL 12/07/2015 Comp Metabolic Lcz525 ALBUMIN 4.3 g/dL 12/07/2015 Comp Metabolic Wai426 TPRO 6.8 g/dL 12/07/2015 Comp Metabolic Oiz947 GLOB 2.5 g/dL 12/07/2015 Comp Metabolic Jkr317 A/G Ratio 1.8 Ratio 12/07/2015 Comp Metabolic Gtx779 Osmo 285 mOsmo 12/07/2015 Cbc With Differential Ord2 WBC 5.44 K/ul 07/26/2015 Cbc With Differential Ord2 RBC 4.79 M/ul 07/26/2015 Cbc With Differential Ord2 HGB 14.8 g/dl 07/26/2015 Cbc With Differential Ord2 Neut% 57.9 % 07/26/2015 Cbc With Differential Ord2 HCT 44.5 % 07/26/2015 Cbc With Differential Ord2 MCV 92.9 fl 07/26/2015 Cbc With Differential Ord2 Lymph% 30.5 % 07/26/2015 Cbc With Differential Ord2 MCH 30.9 pg 07/26/2015 Cbc With Differential Ord2 [place]% 8.6 % 07/26/2015 Cbc With Differential Ord2 [...] 1.66 K/ul 07/26/2015 Cbc With Differential Ord2 [place] ABS# 0.5 K/ul 07/26/2015 Cbc With Differential [...] hTSH II 3.01 uIU/mL 05/25/2015 Comp Metabolic Cvy592 NA 140 mEq/L 05/25/2015 Comp Metabolic Sfm354 K 4.3 mEq/L 05/25/2015 Comp Metabolic Fpr674 CL 104 mEq/L 05/25/2015 Comp Metabolic Lby685 CO2 26.0 mEq/L 05/25/2015 Comp Metabolic Bys182 ANION GAP 14 05/25/2015 Comp Metabolic Qgs803 GLUCOSE 77 mg/dL 05/25/2015 Comp Metabolic Hac276 Creat 1.2 mg/dL 05/25/2015 Comp Metabolic Wvl836 eGFR 62 ml/min/1.73m2 05/25/2015 Comp Metabolic Gvk977 BUN 23 mg/dL 05/25/2015 Comp Metabolic Xoi552 B/C Ratio 18.7 Ratio 05/25/2015 Comp Metabolic Edc978 CALCIUM 9.4 mg/dL 05/25/2015 Comp Metabolic Olv762 ALK PHOS 67 U/L 05/25/2015 Comp Metabolic Yae398 AST(SGOT) 20 U/L 05/25/2015 Comp Metabolic Qpv171 ALT(SGPT) 20 U/L 05/25/2015 Comp Metabolic Wux729 BILI T 0.7 mg/dL 05/25/2015 Comp Metabolic Smd683 ALBUMIN 4.2 g/dL 05/25/2015 Comp Metabolic Kqc250 TPRO 6.5 g/dL 05/25/2015 Comp Metabolic Pmk738 GLOB 2.3 g/dL 05/25/2015 Comp Metabolic Nbu475 A/G Ratio 1.8 Ratio 05/25/2015 Comp Metabolic Eyh592 Osmo 282 mOsmo 05/25/2015 Cbc With Differential Ord2 WBC 5.72 K/ul 05/25/2015 Cbc With Differential Ord2 RBC 4.43 M/ul 05/25/2015 Cbc With Differential Ord2 HGB 13.7 g/dl 05/25/2015 Cbc With Differential Ord2 Neut% 60.3 % 05/25/2015 Cbc With Differential Ord2 HCT 41.3 % 05/25/2015 Cbc With Differential Ord2 Lymph% 29.7 % 05/25/2015 Cbc With Differential Ord2 MCV 93.2 fl 05/25/2015 Cbc With Differential Ord2 [place]% 7.2 % 05/25/2015 Cbc With Differential Ord2 MCH 30.9 pg 05/25/2015 Cbc With Differential Ord2 Eos% 2.3 % 05/25/2015 Cbc With Differential Ord2 MCHC 33.2 pg 05/25/2015 Cbc With Differential Ord2 PLT 175 K/ul 05/25/2015 Cbc With Differential Ord2 Baso% 0.5 % 05/25/2015 Cbc With Differential Ord2 RDW 14.0 % 05/25/2015 Cbc With Differential Ord2 Neut ABS# 3.45 K/ul 05/25/2015 Cbc With Differential Ord2 Lymph ABS# 1.70 K/ul 05/25/2015 Cbc With Differential Ord2 [place] ABS# 0.4 K/ul 05/25/2015 Cbc With Differential Ord2 Eos ABS# 0.1 K/ul 05/25/2015 Cbc With Differential Ord2 Baso ABS# 0.0 K/ul 05/25/2015 Cbc With Differential Ord2 New Analyzer Notice Please note new ref ranges starting 05-16-2015 due to implemntation of new five part differential hematolgy analyzer. 05/25/2015 Review of Systems System Result Effective Dates Constitutional No recent illness 02/23/2018 Constitutional No [...] No Procedures data Vital Signs Date Vital 02/23/2018 Blood Pressure 1: 140/70 Code: 8480-6 BMI: 22.1 Code: 96202-8 Heart Rate 1: 77 bpm Height: 5'7" SpO2: 99% Weight: 141 lbs 08/14/2017 Blood Pressure 1: 126/78 Code: 8480-6 BMI: 22.9 Code: 84011-6 Heart Rate 1: 76 bpm Height: 5'7" SpO2: 99% Weight: 146 lbs 8 oz 12/18/2016 Blood Pressure 1: 122/72 Code: 8480-6 BMI: 22.2 Code: 80952-5 Heart Rate 1: 74 bpm Height: 5'7" SpO2: 98% Weight: 142 lbs 06/13/2016 Blood Pressure 1: 124/76 Code: 8480-6 BMI: 22.6 Code: 89287-4 Heart Rate 1: 79 bpm Height: 5'7" SpO2: 99% Weight: 144 lbs 12/07/2015 Blood Pressure 1: 122/64 Code: 8480-6 BMI: 22.4 Code: 44233-1 Heart Rate 1: 75 bpm Height: 5'7" SpO2: 98% Weight: 143 lbs 05/25/2015 Blood Pressure 1: 134/78 Code: 8480-6 BMI: 22.6 Code: 26082-8 Heart Rate 1: 74 bpm Height: 5'7" Weight: 144 lbs 11/24/2014 Blood Pressure 1: 130/72 Code: 8480-6 BMI: 23.6 Code: 70349-2 Heart Rate 1: 68 bpm Height: 5'7" SpO2: 98% Weight: 151 lbs Functional Status No Functional Status data History of Present Illness Symptom Name Status Result Effective Date Notes hypertension Quality chronic 02/23/2018 None hypertension Onset [...] Alleviating Factors medication 11/24/2014 None Advance Directives Advance Directives Present Encounters Encounter Performer Location Codes Date ([id number]) [id number] EST. PATIENT, LEVEL IV Diagnosis: Essential (primary) hypertension[ICD10: I10] Diagnosis: Mixed hyperlipidemia[ICD10: E78.2] Diagnosis: Other allergic rhinitis[ICD10: J30.89] Diagnosis: Chronic mucoid otitis media, right ear[ICD10: H65.31] Claudia Yen MD, [facility] CPT-4: 68462 02/23/2018 [id number]) 27483 EST. PATIENT, LEVEL III Diagnosis: Essential (primary) hypertension[ICD10: I10] Diagnosis: Other allergic rhinitis[ICD10: J30.89] [facility] CPT-4: 18699 08/14/2017 [id number]) [id number] EST. PATIENT, LEVEL III Diagnosis: Essential (primary) hypertension[ICD10: I10] Diagnosis: Mixed hyperlipidemia[ICD10: E78.2] Claudia Yen MD, [facility] CPT- 4: 77519 12/18/2016 ([id number]) 25957 EST. PATIENT, LEVEL III Diagnosis: Essential (primary) hypertension[ICD10: I10] Diagnosis: Mixed hyperlipidemia[ICD10: E78.2] Claudia Yen MD, [facility] CPT- 4: 29354 06/13/2016 ([id number]) 62242 EST. PATIENT, LEVEL IV Diagnosis: Essential (primary) hypertension[ICD10: I10] Diagnosis: Mixed hyperlipidemia[ICD10: E78.2] Diagnosis: Occlusion and stenosis of bilateral carotid arteries[ICD10: I65.23] [facility] CPT-4: 07082 12/07/2015 ([id number]) 70013 EST. PATIENT, LEVEL IV Diagnosis: Essential (primary) hypertension[ICD10: I10] Diagnosis: Abnormal weight loss[ICD10: R63.4] Diagnosis: Elevated prostate specific antigen [PSA][ICD10: R97.2] Claudia Yen MD, [facility] CPT-4: 87644 05/25/2015 ([id number]) INIT PM E/M NEW PAT 65+ YRS Diagnosis: Routine medical exam[ICD9: V70.0] Amna Yen MD, [facility] CPT- 4: 39027 11/24/2014 Plan of Care Planned Activity Notes [...] allergy spray. 02/23/2018 Appointment: Claudia Redd WPtel: [address] [place] [address] (15 min) Moderate 02/23/2018 Patient Education: Patient Medication Summary Completed 02/23/2018 Patient Education: Hypertension Completed 02/23/2018 Patient Education: Cholesterol Management Completed 02/23/2018 Appointment: Claudia Redd WPtel: [address] [place] [address] (15 min) Moderate 02/16/2018 Visit Plan: Hypertension - well controlled - continue with current medications, continue with no added salt diet. Pt has been encouraged to exercise daily. The pt has been advised to call the office if there are any acute concerns about change in blood pressure readings at home. [id number]-ioheyausi flonase-call if symptoms do not resolve or if any worse 08/14/2017 Appointment: Claudia Redd WPtel: [address] [place] [address] (15 min) Moderate 08/14/2017 Patient Education: Patient Medication Summary Completed 08/14/2017 Appointment: Claudia Redd WPtel: [address] [place] [address] (15 min) Moderate 08/04/2017 Visit Plan: Hypertension [...] Completed 12/18/2016 Appointment: Claudia Redd WPtel: [phone] [id number] [place] [address] (30 min) Complex 12/11/2016 Visit Plan: Hypertension [...] medications. 06/13/2016 Appointment: Claudia Redd WPtel: [address] [phone] (15 min) Moderate 06/13/2016 Patient Education: Patient [...] carotid ultrasound 12/07/2015 [facility] [phone] [phone] (15 min) Moderate 12/07/2015 Patient Education: Patient Medication Summary Completed 12/07/2015 Visit Plan: Hypertension - well controlled - continue with current medications, continue with no added salt diet. Pt has been encouraged to exercise daily. The pt has been advised to call the office if there are any acute concerns about change in blood pressure readings at home. Weight [id number]-kqswitq has started eating more-recommend increasing calories and [...] renal functioning. 11/24/2014 Appointment: [facility] [phone] [phone] [place] ([place] New Patient 11/24/2014 Patient [...] change in blood pressure readings at home. [id number] flonase-call if symptoms do not resolve or if any worse . Hypertension - well controlled - continue with current medications, continue with no added salt diet. Pt has been encouraged to exercise daily. The pt has been advised to call the office if there are any acute concerns about change in blood pressure readings at home. Weight [id number]-jxlqvpc has started eating more-recommend increasing calories and [...]
--- OUTSIDE RECORDS SUMMARY | 2018-12-13 14:27 | XMS REPORT | CCD ---
Author Author [facility]na Yen Organization [facility] Address [address] [place] [address] Phone Care Team Providers [facility] Name Role Phone PP Unavailable CCM Unavailable Summary Purpose Interface Exchange Insurance Providers Payer name Policy type / Coverage type Covered republican ID Effective Begin Date Effective End Date WPS Medicare Part B Medicare Part B [id number] 2018 Unknown [employer] Medicare Part B [id number] Unknown Family history Daughter Diagnosis Age At Onset defect Unknown Brother Diagnosis Age At Onset Hyperlipidemia Unknown Mother Diagnosis Age At Onset Heart Attack Unknown Arthritis Unknown Father Diagnosis Age At Onset Hyperlipidemia Unknown Social History Social History Element Codes Description Effective Dates Marital status Unknown Maryann 02/23/2018 Number of children Unknown 3 11/24/[address]: 0026620 Quit over 10 years ago 200411/24/2014 Allergies, [...] Start Date Stop Date Status Fill Instructions Augmentin 875 mg-125 mg tablet RxNorm: 440263 1 Tablet(s) PO BID 02/23/2018 03/01/2018 Active aspirin 81 mg tablet RxNorm: 376422 2 Tablet(s) PO daily 02/23/2018 No Stop Date Active Zyrtec 10 mg tablet RxNorm: 1247711 1 Tablet(s) PO daily 02/23/2018 03/24/2018 Active Fish Oil 1,000 mg capsule RxNorm: 1 Capsule(s) PO BID 02/23/2018 No Stop Date Active Protonix 40 mg tablet,delayed release RxNorm: 949429 TAKE 1 TABLET EVERY DAY 02/15/2018 02/09/2019 Active metoprolol succinate ER 50 mg tablet,extended release 24 hr RxNorm: 454072 TAKE 1 TABLET EVERY DAY 02/15/2018 02/09/2019 Active lisinopril 5 mg tablet RxNorm: 729628 TAKE 1 TABLET EVERY DAY 02/15/2018 02/09/2019 Active folic acid 1 mg tablet RxNorm: 148962 TAKE 1 TABLET EVERY DAY 02/08/2018 02/02/2019 Active Keflex 500 mg capsule RxNorm: 255787 1 Capsule(s) PO TID 09/21/2017 09/27/2017 Inactive Flonase Allergy Relief 50 mcg/actuation nasal spray,suspension RxNorm: 9660806 2 Aragon NASAL daily 09/21/2017 10/04/2017 Inactive Keflex 500 mg capsule RxNorm: 275011 1 Capsule(s) PO TID 09/21/2017 09/20/2017 Inactive Flonase Allergy Relief 50 mcg/actuation nasal spray,suspension RxNorm: 5077896 2 Aragon NASAL daily 09/21/2017 09/20/2017 Inactive Lipitor 40 mg tablet RxNorm: 223981 TAKE 1 TABLET EVERY DAY 03/23/2017 03/17/2018 Active lisinopril 5 mg tablet RxNorm: 963811 TAKE 1 TABLET EVERY DAY 01/22/2017 01/16/2018 Inactive Protonix 40 mg tablet,delayed release RxNorm: 775560 TAKE 1 TABLET EVERY DAY 01/22/2017 01/16/2018 Inactive metoprolol succinate ER 50 mg tablet,extended release 24 hr RxNorm: 605493 TAKE 1 TABLET EVERY DAY 01/22/2017 01/16/2018 Inactive folic acid 1 mg tablet RxNorm: 350284 TAKE 1 TABLET EVERY DAY 08/22/2016 08/16/2017 Inactive metoprolol succinate ER 50 mg tablet,extended release 24 hr RxNorm: 785635 1 Tablet(s) PO daily 03/17/2016 01/21/2017 Inactive Lipitor 40 mg tablet RxNorm: 428957 1 Tablet(s) PO daily 03/17/2016 03/11/2017 Inactive lisinopril 5 mg tablet RxNorm: 968425 1 Tablet(s) PO daily 03/17/2016 01/21/2017 Inactive Protonix 40 mg tablet,delayed release RxNorm: 509341 1 Tablet(s) PO daily 03/17/2016 01/21/2017 Inactive folic acid 1 mg tablet RxNorm: 694813 1 Tablet(s) PO daily 08/15/2015 08/08/2016 Inactive Lipitor 40 mg tablet RxNorm: 779677 1 Tablet(s) PO daily 08/15/2015 03/16/2016 Inactive Lipitor 40 mg tablet RxNorm: 621853 1 Tablet(s) PO daily 07/30/2015 08/14/2015 Inactive folic acid 1 mg tablet RxNorm: 930571 1 Tablet(s) PO daily 07/30/2015 08/14/2015 Inactive metoprolol succinate ER 50 mg tablet,extended release 24 hr RxNorm: 093487 1 Tablet(s) PO daily 07/27/2015 03/16/2016 Inactive Protonix 40 mg tablet,delayed release RxNorm: 684822 1 Tablet(s) PO daily 07/27/2015 03/16/2016 Inactive lisinopril 5 mg tablet RxNorm: 517768 1 Tablet(s) PO daily 07/27/2015 03/16/2016 Inactive folic acid 1 mg tablet RxNorm: 230120 1 Tablet(s) PO daily 07/27/2015 07/29/2015 Inactive Protonix 40 mg tablet,delayed release RxNorm: 264194 1 Tablet(s) PO daily 03/12/2015 07/26/2015 Inactive metoprolol succinate ER 50 mg tablet,extended release 24 hr RxNorm: 002709 1 Tablet(s) PO daily 03/12/2015 07/26/2015 Inactive folic acid 1 mg tablet RxNorm: 089836 1 Tablet(s) PO daily 03/12/2015 07/26/2015 Inactive lisinopril 5 mg tablet RxNorm: 511067 1 Tablet(s) PO daily 03/12/2015 07/26/2015 Inactive Protonix 40 mg tablet,delayed release RxNorm: 097707 1 Tablet(s) PO daily 01/31/2015 03/11/2015 Inactive metoprolol succinate ER 50 mg tablet,extended release 24 hr RxNorm: 201563 1 Tablet(s) PO daily 01/31/2015 01/30/2015 Inactive lisinopril 5 mg tablet RxNorm: 752685 1 Tablet(s) PO daily 01/31/2015 03/11/2015 Inactive metoprolol succinate ER 50 mg tablet,extended release 24 hr RxNorm: 528257 1 Tablet(s) PO daily 01/31/2015 03/11/2015 Inactive folic acid 1 mg tablet RxNorm: 096319 1 Tablet(s) PO daily 01/31/2015 03/11/2015 Inactive Stress tablet RxNorm: oral No Start Date Active Co Q-10 50 mg capsule RxNorm: 258896 1 Capsule(s) PO BID No Start Date Active Fish Oil 1,000 mg capsule RxNorm: 1 Capsule(s) PO daily No Start Date 02/22/2018 Inactive Protonix 40 mg tablet,delayed release RxNorm: 614490 1 Tablet(s) PO daily No Start Date 01/30/2015 Inactive lisinopril 5 mg tablet RxNorm: 741854 1 Tablet(s) PO daily No Start Date 01/30/2015 Inactive aspirin 81 mg tablet RxNorm: 794331 1 Tablet(s) PO daily No Start Date 02/22/2018 Inactive folic acid 1 mg tablet RxNorm: 855755 1 Tablet(s) PO daily No Start Date 01/30/2015 Inactive metoprolol tartrate 50 mg tablet RxNorm: 464561 1 Tablet(s) PO daily No Start Date 01/31/2015 Inactive Lipitor 40 mg tablet RxNorm: 206077 1 Tablet(s) PO daily No Start Date [...] 60.6 % 02/23/2018 Cbc With Differential Ord2 Lymph% 28.2 % 02/23/2018 Cbc With Differential Ord2 MCV 94.7 fl 02/23/2018 Cbc With Differential Ord2 MCH 31.3 pg 02/23/2018 Cbc With Differential Ord2 [place]% 8.9 % 02/23/2018 Cbc With Differential Ord2 Eos% 2.1 % 02/23/2018 Cbc With Differential Ord2 MCHC 33.0 pg 02/23/2018 Cbc With Differential Ord2 PLT 160 K/ul 02/23/2018 Cbc With Differential Ord2 Baso% 0.2 % 02/23/2018 Cbc With Differential Ord2 Neut ABS# 3.68 K/ul 02/23/2018 Cbc With Differential Ord2 RDW 13.6 % 02/23/2018 Cbc With Differential Ord2 Lymph ABS# 1.71 K/ul 02/23/2018 Cbc With Differential Ord2 [place] ABS# 0.5 K/ul 02/23/2018 Cbc With Differential Ord2 Eos ABS# 0.1 K/ul 02/23/2018 Cbc With Differential Ord2 Baso ABS# 0.0 K/ul 02/23/2018 Tsh Ord6 TSH (3rd IS) 2.67 uIU/mL 02/23/2018 Lipid Ord30 CHOL 131 mg/dL 02/23/2018 Lipid Ord30 HDL 56.0 mg/dl 02/23/2018 Lipid Ord30 TRIG 67 mg/dL 02/23/2018 Lipid Ord30 LDL 62 mg/dL 02/23/2018 Lipid Ord30 C/HDL 2.3 Ratio 02/23/2018 Comp Metabolic Wvf409 NA 141 mEq/L 02/23/2018 Comp Metabolic Kaz266 K 4.6 mEq/L 02/23/2018 Comp Metabolic Grw672 CL 105 mEq/L 02/23/2018 Comp Metabolic Ogf379 CO2 27.0 mEq/L 02/23/2018 Comp Metabolic Aag250 ANION GAP 14 02/23/2018 Comp Metabolic Uoj692 GLUCOSE 90 mg/dL 02/23/2018 Comp Metabolic Pzz810 Creat 1.5 mg/dL 02/23/2018 Comp Metabolic Gcv521 eGFR 51 ml/min/1.73m2 02/23/2018 Comp Metabolic Rwa568 BUN 31 mg/dL 02/23/2018 Comp Metabolic Vra355 B/C Ratio 21.4 Ratio 02/23/2018 Comp Metabolic Wnf394 CALCIUM 9.6 mg/dL 02/23/2018 Comp Metabolic Bqm969 ALK PHOS 62 U/L 02/23/2018 Comp Metabolic Cfz569 AST(SGOT) 20 U/L 02/23/2018 Comp Metabolic Dyw077 ALT(SGPT) 17 U/L 02/23/2018 Comp Metabolic Dtq719 BILI T 0.8 mg/dL 02/23/2018 Comp Metabolic Rky572 ALBUMIN 4.3 g/dL 02/23/2018 Comp Metabolic Zaq275 TPRO 6.4 g/dL 02/23/2018 Comp Metabolic Avh506 GLOB 2.1 g/dL 02/23/2018 Comp Metabolic Ngr863 A/G Ratio 2.0 Ratio 02/23/2018 Comp Metabolic Fvs634 Osmo 287 mOsmo 02/23/2018 Lipid Ord30 CHOL 118 mg/dL 12/18/2016 Lipid Ord30 HDL 52.0 mg/dl 12/18/2016 Lipid Ord30 TRIG 64 mg/dL 12/18/2016 Lipid Ord30 LDL 53 mg/dL 12/18/2016 Lipid Ord30 C/HDL 2.3 Ratio 12/18/2016 Cbc With Differential Ord2 WBC 6.46 K/ul 12/18/2016 Cbc With Differential Ord2 RBC 4.28 M/ul 12/18/2016 Cbc With Differential Ord2 HGB 13.7 g/dl 12/18/2016 Cbc With Differential Ord2 Neut% 60.8 % 12/18/2016 Cbc With Differential Ord2 HCT 40.2 % 12/18/2016 Cbc With Differential Ord2 Lymph% 27.6 % 12/18/2016 Cbc With Differential Ord2 MCV 93.9 fl 12/18/2016 Cbc With Differential Ord2 MCH 32.0 pg 12/18/2016 Cbc With Differential Ord2 [place]% 7.9 % 12/18/2016 Cbc With Differential Ord2 [...] 1.78 K/ul 12/18/2016 Cbc With Differential Ord2 [place] ABS# 0.5 K/ul 12/18/2016 Cbc With Differential Ord2 Eos ABS# 0.2 K/ul 12/18/2016 Cbc With Differential Ord2 Baso ABS# 0.0 K/ul 12/18/2016 Comp Metabolic Onv042 NA 140 mEq/L 12/18/2016 Comp Metabolic Zqt191 K 4.4 mEq/L 12/18/2016 Comp Metabolic Wxj028 CL 105 mEq/L 12/18/2016 Comp Metabolic Ehb692 CO2 27.0 mEq/L 12/18/2016 Comp Metabolic Fzd514 ANION GAP 12 12/18/2016 Comp Metabolic Fpa111 GLUCOSE 89 mg/dL 12/18/2016 Comp Metabolic Gpq021 Creat 1.4 mg/dL 12/18/2016 Comp Metabolic Klt304 eGFR 51 ml/min/1.73m2 12/18/2016 Comp Metabolic Fjo560 BUN 24 mg/dL 12/18/2016 Comp Metabolic Lin048 B/C Ratio 16.7 Ratio 12/18/2016 Comp Metabolic Lxt045 CALCIUM 9.3 mg/dL 12/18/2016 Comp Metabolic Iyu544 ALK PHOS 59 U/L 12/18/2016 Comp Metabolic Mes039 AST(SGOT) 18 U/L 12/18/2016 Comp Metabolic Azq260 ALT(SGPT) 15 U/L 12/18/2016 Comp Metabolic Nom398 BILI T 0.8 mg/dL 12/18/2016 Comp Metabolic Pis411 ALBUMIN 4.0 g/dL 12/18/2016 Comp Metabolic Azb855 TPRO 6.2 g/dL 12/18/2016 Comp Metabolic Zvc268 GLOB 2.2 g/dL 12/18/2016 Comp Metabolic Sue644 A/G Ratio 1.8 Ratio 12/18/2016 Comp Metabolic Ggs921 Osmo 283 mOsmo 12/18/2016 Tsh Ord6 hTSH II 1.98 uIU/mL 12/18/2016 Comp Metabolic Iwh195 NA 139 mEq/L 06/13/2016 Comp Metabolic Rfi517 K 4.5 mEq/L 06/13/2016 Comp Metabolic Aiu251 CL 104 mEq/L 06/13/2016 Comp Metabolic Oec926 CO2 29.0 mEq/L 06/13/2016 Comp Metabolic Pwg189 ANION GAP 11 06/13/2016 Comp Metabolic Cap133 GLUCOSE 92 mg/dL 06/13/2016 Comp Metabolic Ghs334 Creat 1.3 mg/dL 06/13/2016 Comp Metabolic Eei214 eGFR 58 ml/min/1.73m2 06/13/2016 Comp Metabolic Qdi361 BUN 24 mg/dL 06/13/2016 Comp Metabolic Oyt975 B/C Ratio 18.6 Ratio 06/13/2016 Comp Metabolic Ini361 CALCIUM 9.9 mg/dL 06/13/2016 Comp Metabolic Ekc558 ALK PHOS 65 U/L 06/13/2016 Comp Metabolic Uxi592 AST(SGOT) 19 U/L 06/13/2016 Comp Metabolic Yzs925 ALT(SGPT) 19 U/L 06/13/2016 Comp Metabolic Fbh881 BILI T 0.7 mg/dL 06/13/2016 Comp Metabolic Cwq563 ALBUMIN 4.5 g/dL 06/13/2016 Comp Metabolic Trl146 TPRO 7.0 g/dL 06/13/2016 Comp Metabolic Shw775 GLOB 2.5 g/dL 06/13/2016 Comp Metabolic Ean375 A/G Ratio 1.8 Ratio 06/13/2016 Comp Metabolic Ued021 Osmo 281 mOsmo 06/13/2016 Cbc With Differential [...] 31.6 pg 06/13/2016 Cbc With Differential Ord2 [place]% 8.8 % 06/13/2016 Cbc With Differential Ord2 MCHC 33.6 pg 06/13/2016 Cbc With Differential Ord2 Eos% 3.0 % 06/13/2016 Cbc With Differential Ord2 Baso% 0.3 % 06/13/2016 Cbc With Differential Ord2 PLT 161 K/ul 06/13/2016 Cbc With Differential Ord2 RDW 13.6 % 06/13/2016 Cbc With Differential Ord2 Neut ABS# 3.86 K/ul 06/13/2016 Cbc With Differential Ord2 Lymph ABS# 1.93 K/ul 06/13/2016 Cbc With Differential Ord2 [place] ABS# 0.6 K/ul 06/13/2016 Cbc With Differential [...] 43.9 % 12/07/2015 Cbc With Differential Ord2 Lymph% 29.3 % 12/07/2015 Cbc With Differential Ord2 MCV 93.6 fl 12/07/2015 Cbc With Differential Ord2 MCH 31.1 pg 12/07/2015 Cbc With Differential Ord2 [place]% 7.7 % 12/07/2015 Cbc With Differential Ord2 MCHC 33.3 pg 12/07/2015 Cbc With Differential Ord2 Eos% 2.2 % 12/07/2015 Cbc With Differential Ord2 PLT 167 K/ul 12/07/2015 Cbc With Differential Ord2 Baso% 0.2 % 12/07/2015 Cbc With Differential Ord2 Neut ABS# 3.38 K/ul 12/07/2015 Cbc With Differential Ord2 RDW 13.7 % 12/07/2015 Cbc With Differential Ord2 Lymph ABS# 1.63 K/ul 12/07/2015 Cbc With Differential Ord2 [place] ABS# 0.4 K/ul 12/07/2015 Cbc With Differential Ord2 Eos ABS# 0.1 K/ul 12/07/2015 Cbc With Differential Ord2 Baso ABS# 0.0 K/ul 12/07/2015 Tsh Ord6 hTSH II 3.01 uIU/mL 12/07/2015 Lipid Ord30 CHOL 117 mg/dL 12/07/2015 Lipid Ord30 HDL 53.0 mg/dl 12/07/2015 Lipid Ord30 TRIG 68 mg/dL 12/07/2015 Lipid Ord30 LDL 50 mg/dL 12/07/2015 Lipid Ord30 C/HDL 2.2 Ratio 12/07/2015 Comp Metabolic Wdg045 NA 140 mEq/L 12/07/2015 Comp Metabolic Fmj141 K 4.5 mEq/L 12/07/2015 Comp Metabolic Nbc639 CL 106 mEq/L 12/07/2015 Comp Metabolic Noo156 CO2 27.0 mEq/L 12/07/2015 Comp Metabolic Gsx754 ANION GAP 12 12/07/2015 Comp Metabolic Czs922 GLUCOSE 92 mg/dL 12/07/2015 Comp Metabolic Cqs480 Creat 1.3 mg/dL 12/07/2015 Comp Metabolic Sbr217 eGFR 57 ml/min/1.73m2 12/07/2015 Comp Metabolic Kus757 BUN 28 mg/dL 12/07/2015 Comp Metabolic Tyz932 B/C Ratio 21.2 Ratio 12/07/2015 Comp Metabolic Gzt273 CALCIUM 10.0 mg/dL 12/07/2015 Comp Metabolic Lkh572 ALK PHOS 58 U/L 12/07/2015 Comp Metabolic Zsu332 AST(SGOT) 19 U/L 12/07/2015 Comp Metabolic Yfc592 ALT(SGPT) 15 U/L 12/07/2015 Comp Metabolic Oei302 BILI T 0.9 mg/dL 12/07/2015 Comp Metabolic Fhx732 ALBUMIN 4.3 g/dL 12/07/2015 Comp Metabolic Uwn136 TPRO 6.8 g/dL 12/07/2015 Comp Metabolic Ghy731 GLOB 2.5 g/dL 12/07/2015 Comp Metabolic Hsq461 A/G Ratio 1.8 Ratio 12/07/2015 Comp Metabolic Nyw558 Osmo 285 mOsmo 12/07/2015 Cbc With Differential [...] 30.5 % 07/26/2015 Cbc With Differential Ord2 [place]% 8.6 % 07/26/2015 Cbc With Differential Ord2 MCH 30.9 pg 07/26/2015 Cbc With Differential Ord2 MCHC 33.3 pg 07/26/2015 Cbc With Differential Ord2 Eos% 2.8 % 07/26/2015 Cbc With Differential Ord2 Baso% 0.2 % 07/26/2015 Cbc With Differential Ord2 PLT 163 K/ul 07/26/2015 Cbc With Differential Ord2 Neut ABS# 3.15 K/ul 07/26/2015 Cbc With Differential Ord2 RDW 13.9 % 07/26/2015 Cbc With Differential Ord2 Lymph ABS# 1.66 K/ul 07/26/2015 Cbc With Differential Ord2 [place] ABS# 0.5 K/ul 07/26/2015 Cbc With Differential [...] hTSH II 3.01 uIU/mL 05/25/2015 Comp Metabolic Xbm750 NA 140 mEq/L 05/25/2015 Comp Metabolic Jrk649 K 4.3 mEq/L 05/25/2015 Comp Metabolic Oor402 CL 104 mEq/L 05/25/2015 Comp Metabolic Tix737 CO2 26.0 mEq/L 05/25/2015 Comp Metabolic Flc894 ANION GAP 14 05/25/2015 Comp Metabolic Gzo724 GLUCOSE 77 mg/dL 05/25/2015 Comp Metabolic Urz587 Creat 1.2 mg/dL 05/25/2015 Comp Metabolic Kck119 eGFR 62 ml/min/1.73m2 05/25/2015 Comp Metabolic Uub774 BUN 23 mg/dL 05/25/2015 Comp Metabolic Twl545 B/C Ratio 18.7 Ratio 05/25/2015 Comp Metabolic Suw921 CALCIUM 9.4 mg/dL 05/25/2015 Comp Metabolic Pwf768 ALK PHOS 67 U/L 05/25/2015 Comp Metabolic Geg640 AST(SGOT) 20 U/L 05/25/2015 Comp Metabolic Fyc261 ALT(SGPT) 20 U/L 05/25/2015 Comp Metabolic Igz406 BILI T 0.7 mg/dL 05/25/2015 Comp Metabolic Mnq142 ALBUMIN 4.2 g/dL 05/25/2015 Comp Metabolic Znp129 TPRO 6.5 g/dL 05/25/2015 Comp Metabolic Nea732 GLOB 2.3 g/dL 05/25/2015 Comp Metabolic Aem481 A/G Ratio 1.8 Ratio 05/25/2015 Comp Metabolic Igw118 Osmo 282 mOsmo 05/25/2015 Cbc With Differential Ord2 WBC 5.72 K/ul 05/25/2015 Cbc With Differential Ord2 RBC 4.43 M/ul 05/25/2015 Cbc With Differential Ord2 HGB 13.7 g/dl 05/25/2015 Cbc With Differential Ord2 Neut% 60.3 % 05/25/2015 Cbc With Differential Ord2 HCT 41.3 % 05/25/2015 Cbc With Differential Ord2 MCV 93.2 fl 05/25/2015 Cbc With Differential Ord2 Lymph% 29.7 % 05/25/2015 Cbc With Differential Ord2 MCH 30.9 pg 05/25/2015 Cbc With Differential Ord2 [place]% 7.2 % 05/25/2015 Cbc With Differential Ord2 MCHC 33.2 pg 05/25/2015 Cbc With Differential Ord2 Eos% 2.3 % 05/25/2015 Cbc With Differential Ord2 PLT 175 K/ul 05/25/2015 Cbc With Differential Ord2 Baso% 0.5 % 05/25/2015 Cbc With Differential Ord2 Neut ABS# 3.45 K/ul 05/25/2015 Cbc With Differential Ord2 RDW 14.0 % 05/25/2015 Cbc With Differential Ord2 Lymph ABS# 1.70 K/ul 05/25/2015 Cbc With Differential Ord2 [place] ABS# 0.4 K/ul 05/25/2015 Cbc With Differential [...] appearance 12/18/2016 None Full Exam - General 1995 Ears/Nose/Throat external nose Overall: no masses 12/18/2016 [...] 1: 140/70 Code: 8480-6 BMI: 22.1 Code: 47076-2 Heart Rate 1: 77 bpm Height: 5'7" SpO2: 99% Weight: 141 lbs 08/14/2017 Blood Pressure 1: 126/78 Code: 8480-6 BMI: 22.9 Code: 46308-0 Heart Rate 1: 76 bpm Height: 5'7" SpO2: 99% Weight: 146 lbs 8 oz 12/18/2016 Blood Pressure 1: 122/72 Code: 8480-6 BMI: 22.2 Code: 36782-7 Heart Rate 1: 74 bpm Height: 5'7" SpO2: 98% Weight: 142 lbs 06/13/2016 Blood Pressure 1: 124/76 Code: 8480-6 BMI: 22.6 Code: 71082-5 Heart Rate 1: 79 bpm Height: 5'7" SpO2: 99% Weight: 144 lbs 12/07/2015 Blood Pressure 1: 122/64 Code: 8480-6 BMI: 22.4 Code: 12498-6 Heart Rate 1: 75 bpm Height: 5'7" SpO2: 98% Weight: 143 lbs 05/25/2015 Blood Pressure 1: 134/78 Code: 8480-6 BMI: 22.6 Code: 48293-7 Heart Rate 1: 74 bpm Height: 5'7" Weight: 144 lbs 11/24/2014 Blood Pressure 1: 130/72 Code: 8480-6 BMI: 23.6 Code: 45547-6 Heart Rate 1: 68 bpm Height: 5'7" [...] Present Encounters Encounter Performer Location Codes Date ([id number]) 96060 EST. PATIENT, LEVEL IV Diagnosis: Essential (primary) hypertension[ICD10: I10] Diagnosis: Mixed hyperlipidemia[ICD10: E78.2] Diagnosis: Other allergic rhinitis[ICD10: J30.89] Diagnosis: Chronic mucoid otitis media, right ear[ICD10: H65.31] Claudia Yen MD, [facility] CPT-4: 35497 02/23/2018 [id number]) 15852 EST. PATIENT, LEVEL III Diagnosis: Essential (primary) hypertension[ICD10: I10] Diagnosis: Other allergic rhinitis[ICD10: J30.89] Claudia Yen MD, [facility] CPT-4: 50382 08/14/2017 [id number]) 66929 EST. PATIENT, LEVEL III Diagnosis: Essential (primary) hypertension[ICD10: I10] Diagnosis: Mixed hyperlipidemia[ICD10: E78.2] Claudia Yen MD, [facility] CPT- 4: 36846 12/18/2016 [id number] EST. PATIENT, LEVEL III Diagnosis: Essential (primary) hypertension[ICD10: I10] Diagnosis: Mixed hyperlipidemia[ICD10: E78.2] Claudia Yen MD, [facility] CPT- 4: 79259 06/13/2016 ([id number]) 46576 EST. PATIENT, LEVEL IV Diagnosis: Essential (primary) hypertension[ICD10: I10] Diagnosis: Mixed hyperlipidemia[ICD10: E78.2] Diagnosis: Occlusion and stenosis of bilateral carotid arteries[ICD10: I65.23] Claudia Yen MD, [facility] CPT-4: 33721 12/07/2015 ([id number]) 08052 EST. PATIENT, LEVEL IV Diagnosis: Essential (primary) hypertension[ICD10: I10] Diagnosis: Abnormal weight loss[ICD10: R63.4] Diagnosis: Elevated prostate specific antigen [PSA][ICD10: R97.2] Claudia Yen MD, [facility] CPT-4: 68327 05/25/2015 ([id number]) INIT PM E/M NEW PAT 65+ YRS Diagnosis: Routine medical exam[ICD9: V70.0] Amna Yen MD, [facility] CPT- 4: 00374 11/24/2014 Plan of Care Planned Activity Notes [...] in the nasal steroid allergy spray. 02/23/2018 Patient Education: Patient Medication Summary Completed 02/23/2018 Patient Education: Hypertension Completed 02/23/2018 Patient Education: Cholesterol Management Completed 02/23/2018 Appointment: Claudia Redd WPtel: [address] [place], [place] [phone] [place] [address] (15 min) Moderate 02/16/2018 Visit Plan: Hypertension - well controlled - continue with current medications, continue with no added salt diet. Pt has been encouraged to exercise daily. The pt has been advised to call the office if there are any acute concerns about change in blood pressure readings at home. Fhyf-vubhakbzi-meeqbszyy flonase-call if symptoms do not resolve or if any worse 08/14/2017 Appointment: Claudia Redd WPtel: [address] [place], [place] [phone] [place] [address] (15 min) Moderate 08/14/2017 Patient Education: Patient Medication Summary Completed 08/14/2017 Appointment: Claudia Redd WPtel: [address] [place], [place] [phone] [place] [address] (15 min) Moderate 08/04/2017 Visit Plan: Hypertension [...] Completed 12/18/2016 Appointment: Claudia Redd WPtel: [address] [phone] (30 min) Complex 12/11/2016 Visit Plan: [...] medications. 06/13/2016 Appointment: Claudia Redd WPtel: [address] [phone] (15 min) Moderate 06/13/2016 Patient Education: [...] ultrasound 12/07/2015 Appointment: Claudia Redd WPtel: [phone] [phone] [place] (15 min) Moderate 12/07/2015 Patient Education: Patient Medication Summary Completed 12/07/2015 Visit Plan: Hypertension - well controlled - continue with current medications, continue with no added salt diet. Pt has been encouraged to exercise daily. The pt has been advised to call the office if there are any acute concerns about change in blood pressure readings at home. Weight ynnq-rmgolbfmjprva-rugegit has started eating more-recommend increasing calories and [...] renal functioning. 11/24/2014 Appointment: Claudia Redd WPtel: [address] [place], [place] [phone] [place] (S) New Patient 11/24/2014 Patient Education: [...] change in blood pressure readings at home. Tlqj-uvyllyfnz-efuckevuj flonase-call if symptoms do not resolve or if any worse . Hypertension - well controlled - continue with current medications, continue with no added salt diet. Pt has been encouraged to exercise daily. The pt has been advised to call the office if there are any acute concerns about change in blood pressure readings at home. Weight vfol-bgktaufeqkfvp-qfervvm has started eating more-recommend increasing calories and [...]
--- OUTSIDE RECORDS SUMMARY | 2018-12-13 14:29 | XMS REPORT | Continuity of Care Document ---
Author Organization Unknown Address Unknown Phone Unavailable Allergies There is no data. Medications There is no data. Problems There is no data. Procedures There is no data. Results There is no data. Encounters ACCT No. Visit Date/Time Discharge Status Pt. Type Provider Facility Loc./Unit Complaint [id number] 01/13/2013 06:15:00 01/13/2013 23:59:59 CLS Outpatient [id number] 11/01/2012 09:08:00 11/01/2012 23:59:59 CLS Outpatient [id number] 10/27/2012 09:36:00 10/27/2012 23:59:59 CLS Outpatient [id number] 03/23/2017 10:41:25 03/23/2017 23:59:59 CLS Outpatient
--- OUTSIDE RECORDS SUMMARY | 2018-12-13 14:29 | XMS REPORT | CCD ---
Author Author [facility]na [facility]en Organization [facility] Address [address] [place] [address] Phone Care Team Providers Care Sort Supervisor Name Role Phone PP Unavailable CCM Unavailable Summary Purpose Interface Exchange Insurance Providers Payer name Policy type / Coverage type Covered green party ID Effective Begin Date Effective End Date WPS Medicare Part B Medicare Part B [id number] 2018 Unknown [employer] Medicare Part B [id number] Unknown Family history Daughter Diagnosis Age At Onset defect Unknown Brother Diagnosis Age At Onset Hyperlipidemia Unknown Mother Diagnosis Age At Onset Heart Attack Unknown Arthritis Unknown Father Diagnosis Age At Onset Hyperlipidemia Unknown Social History Social History Element Codes Description Effective Dates Marital status Unknown Maryann 02/23/2018 Number of children Unknown 3 11/24/[address]: 1242336 Quit over 10 years ago 200411/24/2014 Allergies, [...] Instructions Augmentin 875 mg-125 mg tablet RxNorm: 866486 1 Tablet(s) PO BID 02/23/2018 03/01/2018 Active aspirin 81 mg tablet RxNorm: 668327 2 Tablet(s) PO daily 02/23/2018 No Stop Date Active Zyrtec 10 mg tablet RxNorm: 4731862 1 Tablet(s) PO daily 02/23/2018 03/24/2018 Active Fish Oil 1,000 mg capsule RxNorm: 1 Capsule(s) PO BID 02/23/2018 No Stop Date Active Protonix 40 mg tablet,delayed release RxNorm: 347785 TAKE 1 TABLET EVERY DAY 02/15/2018 02/09/2019 Active metoprolol succinate ER 50 mg tablet,extended release 24 hr RxNorm: 400940 TAKE 1 TABLET EVERY DAY 02/15/2018 02/09/2019 Active lisinopril 5 mg tablet RxNorm: 061785 TAKE 1 TABLET EVERY DAY 02/15/2018 02/09/2019 Active folic acid 1 mg tablet RxNorm: 360711 TAKE 1 TABLET EVERY DAY 02/08/2018 02/02/2019 Active Keflex 500 mg capsule RxNorm: 927241 1 Capsule(s) PO TID 09/21/2017 09/27/2017 Inactive Flonase Allergy Relief 50 mcg/actuation nasal spray,suspension RxNorm: 4208339 2 [place] NASAL daily 09/21/2017 10/04/2017 Inactive Keflex 500 mg capsule RxNorm: 381820 1 Capsule(s) PO TID 09/21/2017 09/20/2017 Inactive Flonase Allergy Relief 50 mcg/actuation nasal spray,suspension RxNorm: 7171173 2 [place] NASAL daily 09/21/2017 09/20/2017 Inactive Lipitor 40 mg tablet RxNorm: 592422 TAKE 1 TABLET EVERY DAY 03/23/2017 03/17/2018 Active lisinopril 5 mg tablet RxNorm: 827164 TAKE 1 TABLET EVERY DAY 01/22/2017 01/16/2018 Inactive Protonix 40 mg tablet,delayed release RxNorm: 532988 TAKE 1 TABLET EVERY DAY 01/22/2017 01/16/2018 Inactive metoprolol succinate ER 50 mg tablet,extended release 24 hr RxNorm: 890141 TAKE 1 TABLET EVERY DAY 01/22/2017 01/16/2018 Inactive folic acid 1 mg tablet RxNorm: 571102 TAKE 1 TABLET EVERY DAY 08/22/2016 08/16/2017 Inactive metoprolol succinate ER 50 mg tablet,extended release 24 hr RxNorm: 765075 1 Tablet(s) PO daily 03/17/2016 01/21/2017 Inactive Lipitor 40 mg tablet RxNorm: 897459 1 Tablet(s) PO daily 03/17/2016 03/11/2017 Inactive lisinopril 5 mg tablet RxNorm: 751264 1 Tablet(s) PO daily 03/17/2016 01/21/2017 Inactive Protonix 40 mg tablet,delayed release RxNorm: 777392 1 Tablet(s) PO daily 03/17/2016 01/21/2017 Inactive folic acid 1 mg tablet RxNorm: 056286 1 Tablet(s) PO daily 08/15/2015 08/08/2016 Inactive Lipitor 40 mg tablet RxNorm: 867091 1 Tablet(s) PO daily 08/15/2015 03/16/2016 Inactive Lipitor 40 mg tablet RxNorm: 669960 1 Tablet(s) PO daily 07/30/2015 08/14/2015 Inactive folic acid 1 mg tablet RxNorm: 511023 1 Tablet(s) PO daily 07/30/2015 08/14/2015 Inactive metoprolol succinate ER 50 mg tablet,extended release 24 hr RxNorm: 701336 1 Tablet(s) PO daily 07/27/2015 03/16/2016 Inactive Protonix 40 mg tablet,delayed release RxNorm: 558396 1 Tablet(s) PO daily 07/27/2015 03/16/2016 Inactive lisinopril 5 mg tablet RxNorm: 786756 1 Tablet(s) PO daily 07/27/2015 03/16/2016 Inactive folic acid 1 mg tablet RxNorm: 729388 1 Tablet(s) PO daily 07/27/2015 07/29/2015 Inactive Protonix 40 mg tablet,delayed release RxNorm: 264261 1 Tablet(s) PO daily 03/12/2015 07/26/2015 Inactive metoprolol succinate ER 50 mg tablet,extended release 24 hr RxNorm: 160180 1 Tablet(s) PO daily 03/12/2015 07/26/2015 Inactive folic acid 1 mg tablet RxNorm: 294955 1 Tablet(s) PO daily 03/12/2015 07/26/2015 Inactive lisinopril 5 mg tablet RxNorm: 394926 1 Tablet(s) PO daily 03/12/2015 07/26/2015 Inactive Protonix 40 mg tablet,delayed release RxNorm: 778248 1 Tablet(s) PO daily 01/31/2015 03/11/2015 Inactive metoprolol succinate ER 50 mg tablet,extended release 24 hr RxNorm: 653892 1 Tablet(s) PO daily 01/31/2015 01/30/2015 Inactive lisinopril 5 mg tablet RxNorm: 285385 1 Tablet(s) PO daily 01/31/2015 03/11/2015 Inactive metoprolol succinate ER 50 mg tablet,extended release 24 hr RxNorm: 675366 1 Tablet(s) PO daily 01/31/2015 03/11/2015 Inactive folic acid 1 mg tablet RxNorm: 681476 1 Tablet(s) PO daily 01/31/2015 03/11/2015 Inactive Stress tablet RxNorm: oral No Start Date Active Co Q-10 50 mg capsule RxNorm: 099165 1 Capsule(s) PO BID No Start Date Active Fish Oil 1,000 mg capsule RxNorm: 1 Capsule(s) PO daily No Start Date 02/22/2018 Inactive Protonix 40 mg tablet,delayed release RxNorm: 082432 1 Tablet(s) PO daily No Start Date 01/30/2015 Inactive lisinopril 5 mg tablet RxNorm: 235371 1 Tablet(s) PO daily No Start Date 01/30/2015 Inactive aspirin 81 mg tablet RxNorm: 155440 1 Tablet(s) PO daily No Start Date 02/22/2018 Inactive folic acid 1 mg tablet RxNorm: 019659 1 Tablet(s) PO daily No Start Date 01/30/2015 Inactive metoprolol tartrate 50 mg tablet RxNorm: 016147 1 Tablet(s) PO daily No Start Date 01/31/2015 Inactive Lipitor 40 mg tablet RxNorm: 027716 1 Tablet(s) PO daily No Start Date [...] 13.6 g/dl 02/23/2018 Cbc With Differential Ord2 Neut% 60.6 % 02/23/2018 Cbc With Differential Ord2 HCT 41.2 % 02/23/2018 Cbc With Differential Ord2 Lymph% 28.2 % 02/23/2018 Cbc With Differential Ord2 MCV 94.7 fl 02/23/2018 Cbc With Differential Ord2 MCH 31.3 pg 02/23/2018 Cbc With Differential Ord2 [place]% 8.9 % 02/23/2018 Cbc With Differential Ord2 Eos% 2.1 % 02/23/2018 Cbc With Differential Ord2 MCHC 33.0 pg 02/23/2018 Cbc With Differential Ord2 Baso% 0.2 % 02/23/2018 Cbc With Differential Ord2 PLT 160 K/ul 02/23/2018 Cbc With Differential Ord2 RDW 13.6 % 02/23/2018 Cbc With Differential Ord2 Neut ABS# 3.68 K/ul 02/23/2018 Cbc With Differential Ord2 Lymph ABS# 1.71 K/ul 02/23/2018 Cbc With Differential Ord2 [place] ABS# 0.5 K/ul 02/23/2018 Cbc With Differential Ord2 Eos ABS# 0.1 K/ul 02/23/2018 Cbc With Differential Ord2 Baso ABS# 0.0 K/ul 02/23/2018 Tsh Ord6 TSH (3rd IS) 2.67 uIU/mL 02/23/2018 Lipid Ord30 CHOL 131 mg/dL 02/23/2018 Lipid Ord30 HDL 56.0 mg/dl 02/23/2018 Lipid Ord30 TRIG 67 mg/dL 02/23/2018 Lipid Ord30 LDL 62 mg/dL 02/23/2018 Lipid Ord30 C/HDL 2.3 Ratio 02/23/2018 Comp Metabolic Nme818 NA 141 mEq/L 02/23/2018 Comp Metabolic Tmn757 K 4.6 mEq/L 02/23/2018 Comp Metabolic Epu651 CL 105 mEq/L 02/23/2018 Comp Metabolic Rqo909 CO2 27.0 mEq/L 02/23/2018 Comp Metabolic Msq567 ANION GAP 14 02/23/2018 Comp Metabolic Rbn150 GLUCOSE 90 mg/dL 02/23/2018 Comp Metabolic Hpe698 Creat 1.5 mg/dL 02/23/2018 Comp Metabolic Ixf987 eGFR 51 ml/min/1.73m2 02/23/2018 Comp Metabolic Cfg732 BUN 31 mg/dL 02/23/2018 Comp Metabolic Bvp824 B/C Ratio 21.4 Ratio 02/23/2018 Comp Metabolic Nnx814 CALCIUM 9.6 mg/dL 02/23/2018 Comp Metabolic Meh424 ALK PHOS 62 U/L 02/23/2018 Comp Metabolic Tfx280 AST(SGOT) 20 U/L 02/23/2018 Comp Metabolic Jzp853 ALT(SGPT) 17 U/L 02/23/2018 Comp Metabolic Ecu154 BILI T 0.8 mg/dL 02/23/2018 Comp Metabolic Wsb987 ALBUMIN 4.3 g/dL 02/23/2018 Comp Metabolic Fgh561 TPRO 6.4 g/dL 02/23/2018 Comp Metabolic Ynh714 GLOB 2.1 g/dL 02/23/2018 Comp Metabolic Ovc987 A/G Ratio 2.0 Ratio 02/23/2018 Comp Metabolic Mis886 Osmo 287 mOsmo 02/23/2018 Lipid Ord30 CHOL [...] 60.8 % 12/18/2016 Cbc With Differential Ord2 Lymph% 27.6 % 12/18/2016 Cbc With Differential Ord2 MCV 93.9 fl 12/18/2016 Cbc With Differential Ord2 [place]% 7.9 % 12/18/2016 Cbc With Differential Ord2 MCH 32.0 pg 12/18/2016 Cbc With Differential Ord2 MCHC 34.1 pg 12/18/2016 Cbc With Differential Ord2 Eos% 3.4 % 12/18/2016 Cbc With Differential Ord2 PLT 156 K/ul 12/18/2016 Cbc With Differential Ord2 Baso% 0.3 % 12/18/2016 Cbc With Differential Ord2 RDW 13.6 % 12/18/2016 Cbc With Differential Ord2 Neut ABS# 3.93 K/ul 12/18/2016 Cbc With Differential Ord2 Lymph ABS# 1.78 K/ul 12/18/2016 Cbc With Differential Ord2 [place] ABS# 0.5 K/ul 12/18/2016 Cbc With Differential Ord2 Eos ABS# 0.2 K/ul 12/18/2016 Cbc With Differential Ord2 Baso ABS# 0.0 K/ul 12/18/2016 Comp Metabolic Fgd104 NA 140 mEq/L 12/18/2016 Comp Metabolic Agz632 K 4.4 mEq/L 12/18/2016 Comp Metabolic Uyq636 CL 105 mEq/L 12/18/2016 Comp Metabolic Wqu874 CO2 27.0 mEq/L 12/18/2016 Comp Metabolic Grj038 ANION GAP 12 12/18/2016 Comp Metabolic Mbo018 GLUCOSE 89 mg/dL 12/18/2016 Comp Metabolic Cmb742 Creat 1.4 mg/dL 12/18/2016 Comp Metabolic Aso775 eGFR 51 ml/min/1.73m2 12/18/2016 Comp Metabolic Irk127 BUN 24 mg/dL 12/18/2016 Comp Metabolic Sfn333 B/C Ratio 16.7 Ratio 12/18/2016 Comp Metabolic Ihk905 CALCIUM 9.3 mg/dL 12/18/2016 Comp Metabolic Pmg090 ALK PHOS 59 U/L 12/18/2016 Comp Metabolic Wym203 AST(SGOT) 18 U/L 12/18/2016 Comp Metabolic Grq502 ALT(SGPT) 15 U/L 12/18/2016 Comp Metabolic Lcu065 BILI T 0.8 mg/dL 12/18/2016 Comp Metabolic Cao057 ALBUMIN 4.0 g/dL 12/18/2016 Comp Metabolic Ddq408 TPRO 6.2 g/dL 12/18/2016 Comp Metabolic Dfr134 GLOB 2.2 g/dL 12/18/2016 Comp Metabolic Phq162 A/G Ratio 1.8 Ratio 12/18/2016 Comp Metabolic Fcl032 Osmo 283 mOsmo 12/18/2016 Tsh Ord6 hTSH II 1.98 uIU/mL 12/18/2016 Comp Metabolic Xvv465 NA 139 mEq/L 06/13/2016 Comp Metabolic Qxs969 K 4.5 mEq/L 06/13/2016 Comp Metabolic Nfg233 CL 104 mEq/L 06/13/2016 Comp Metabolic Gnz691 CO2 29.0 mEq/L 06/13/2016 Comp Metabolic Hgi081 ANION GAP 11 06/13/2016 Comp Metabolic Clg953 GLUCOSE 92 mg/dL 06/13/2016 Comp Metabolic Tre537 Creat 1.3 mg/dL 06/13/2016 Comp Metabolic Dol757 eGFR 58 ml/min/1.73m2 06/13/2016 Comp Metabolic Swm502 BUN 24 mg/dL 06/13/2016 Comp Metabolic Gmk225 B/C Ratio 18.6 Ratio 06/13/2016 Comp Metabolic Sqf660 CALCIUM 9.9 mg/dL 06/13/2016 Comp Metabolic Iyq843 ALK PHOS 65 U/L 06/13/2016 Comp Metabolic Fpo913 AST(SGOT) 19 U/L 06/13/2016 Comp Metabolic Vsi690 ALT(SGPT) 19 U/L 06/13/2016 Comp Metabolic Smb692 BILI T 0.7 mg/dL 06/13/2016 Comp Metabolic Xnu626 ALBUMIN 4.5 g/dL 06/13/2016 Comp Metabolic Slr444 TPRO 7.0 g/dL 06/13/2016 Comp Metabolic Qfc559 GLOB 2.5 g/dL 06/13/2016 Comp Metabolic Mmn391 A/G Ratio 1.8 Ratio 06/13/2016 Comp Metabolic Jye521 Osmo 281 mOsmo 06/13/2016 Cbc With Differential [...] 31.6 pg 06/13/2016 Cbc With Differential Ord2 [place]% 8.8 % 06/13/2016 Cbc With Differential Ord2 MCHC 33.6 pg 06/13/2016 Cbc With Differential Ord2 Eos% 3.0 % 06/13/2016 Cbc With Differential Ord2 PLT 161 K/ul 06/13/2016 Cbc With Differential Ord2 Baso% 0.3 % 06/13/2016 Cbc With Differential Ord2 Neut ABS# 3.86 K/ul 06/13/2016 Cbc With Differential Ord2 RDW 13.6 % 06/13/2016 Cbc With Differential Ord2 Lymph ABS# 1.93 K/ul 06/13/2016 Cbc With Differential Ord2 [place] ABS# 0.6 K/ul 06/13/2016 Cbc With Differential [...] 31.1 pg 12/07/2015 Cbc With Differential Ord2 [place]% 7.7 % 12/07/2015 Cbc With Differential Ord2 [...] 1.63 K/ul 12/07/2015 Cbc With Differential Ord2 [place] ABS# 0.4 K/ul 12/07/2015 Cbc With Differential Ord2 Eos ABS# 0.1 K/ul 12/07/2015 Cbc With Differential Ord2 Baso ABS# 0.0 K/ul 12/07/2015 Tsh Ord6 hTSH II 3.01 uIU/mL 12/07/2015 Lipid Ord30 CHOL 117 mg/dL 12/07/2015 Lipid Ord30 HDL 53.0 mg/dl 12/07/2015 Lipid Ord30 TRIG 68 mg/dL 12/07/2015 Lipid Ord30 LDL 50 mg/dL 12/07/2015 Lipid Ord30 C/HDL 2.2 Ratio 12/07/2015 Comp Metabolic Mxn533 NA 140 mEq/L 12/07/2015 Comp Metabolic Vzu752 K 4.5 mEq/L 12/07/2015 Comp Metabolic Wyl810 CL 106 mEq/L 12/07/2015 Comp Metabolic Mnr826 CO2 27.0 mEq/L 12/07/2015 Comp Metabolic Jii238 ANION GAP 12 12/07/2015 Comp Metabolic Kpg302 GLUCOSE 92 mg/dL 12/07/2015 Comp Metabolic Ipz241 Creat 1.3 mg/dL 12/07/2015 Comp Metabolic Ipn958 eGFR 57 ml/min/1.73m2 12/07/2015 Comp Metabolic Dkf611 BUN 28 mg/dL 12/07/2015 Comp Metabolic Puf269 B/C Ratio 21.2 Ratio 12/07/2015 Comp Metabolic Woy206 CALCIUM 10.0 mg/dL 12/07/2015 Comp Metabolic Lis549 ALK PHOS 58 U/L 12/07/2015 Comp Metabolic Yox870 AST(SGOT) 19 U/L 12/07/2015 Comp Metabolic Mim944 ALT(SGPT) 15 U/L 12/07/2015 Comp Metabolic Xqr699 BILI T 0.9 mg/dL 12/07/2015 Comp Metabolic Qms652 ALBUMIN 4.3 g/dL 12/07/2015 Comp Metabolic Igd636 TPRO 6.8 g/dL 12/07/2015 Comp Metabolic Aon724 GLOB 2.5 g/dL 12/07/2015 Comp Metabolic Wvq833 A/G Ratio 1.8 Ratio 12/07/2015 Comp Metabolic Wut300 Osmo 285 mOsmo 12/07/2015 Cbc With Differential [...] 30.5 % 07/26/2015 Cbc With Differential Ord2 [place]% 8.6 % 07/26/2015 Cbc With Differential Ord2 [...] 1.66 K/ul 07/26/2015 Cbc With Differential Ord2 [place] ABS# 0.5 K/ul 07/26/2015 Cbc With Differential [...] hTSH II 3.01 uIU/mL 05/25/2015 Comp Metabolic Iia509 NA 140 mEq/L 05/25/2015 Comp Metabolic Hkw693 K 4.3 mEq/L 05/25/2015 Comp Metabolic Ode624 CL 104 mEq/L 05/25/2015 Comp Metabolic Byw168 CO2 26.0 mEq/L 05/25/2015 Comp Metabolic Sey980 ANION GAP 14 05/25/2015 Comp Metabolic Zhj045 GLUCOSE 77 mg/dL 05/25/2015 Comp Metabolic Pxc980 Creat 1.2 mg/dL 05/25/2015 Comp Metabolic Zzr516 eGFR 62 ml/min/1.73m2 05/25/2015 Comp Metabolic Bxu270 BUN 23 mg/dL 05/25/2015 Comp Metabolic Cev542 B/C Ratio 18.7 Ratio 05/25/2015 Comp Metabolic Xvv384 CALCIUM 9.4 mg/dL 05/25/2015 Comp Metabolic Xgh121 ALK PHOS 67 U/L 05/25/2015 Comp Metabolic Jxw388 AST(SGOT) 20 U/L 05/25/2015 Comp Metabolic Nfp516 ALT(SGPT) 20 U/L 05/25/2015 Comp Metabolic Mbh058 BILI T 0.7 mg/dL 05/25/2015 Comp Metabolic Qqf152 ALBUMIN 4.2 g/dL 05/25/2015 Comp Metabolic Doh121 TPRO 6.5 g/dL 05/25/2015 Comp Metabolic Unx443 GLOB 2.3 g/dL 05/25/2015 Comp Metabolic Fpy504 A/G Ratio 1.8 Ratio 05/25/2015 Comp Metabolic Bsd309 Osmo 282 mOsmo 05/25/2015 Cbc With Differential [...] 93.2 fl 05/25/2015 Cbc With Differential Ord2 [place]% 7.2 % 05/25/2015 Cbc With Differential Ord2 MCH 30.9 pg 05/25/2015 Cbc With Differential Ord2 MCHC 33.2 pg 05/25/2015 Cbc With Differential Ord2 Eos% 2.3 % 05/25/2015 Cbc With Differential Ord2 PLT 175 K/ul 05/25/2015 Cbc With Differential Ord2 Baso% 0.5 % 05/25/2015 Cbc With Differential Ord2 RDW 14.0 % 05/25/2015 Cbc With Differential Ord2 Neut ABS# 3.45 K/ul 05/25/2015 Cbc With Differential Ord2 Lymph ABS# 1.70 K/ul 05/25/2015 Cbc With Differential Ord2 [place] ABS# 0.4 K/ul 05/25/2015 Cbc With Differential [...] 1: 140/70 Code: 8480-6 BMI: 22.1 Code: 66276-7 Heart Rate 1: 77 bpm Height: 5'7" SpO2: 99% Weight: 141 lbs 08/14/2017 Blood Pressure 1: 126/78 Code: 8480-6 BMI: 22.9 Code: 51989-9 Heart Rate 1: 76 bpm Height: 5'7" SpO2: 99% Weight: 146 lbs 8 oz 12/18/2016 Blood Pressure 1: 122/72 Code: 8480-6 BMI: 22.2 Code: 14841-9 Heart Rate 1: 74 bpm Height: 5'7" SpO2: 98% Weight: 142 lbs 06/13/2016 Blood Pressure 1: 124/76 Code: 8480-6 BMI: 22.6 Code: 13462-3 Heart Rate 1: 79 bpm Height: 5'7" SpO2: 99% Weight: 144 lbs 12/07/2015 Blood Pressure 1: 122/64 Code: 8480-6 BMI: 22.4 Code: 55962-9 Heart Rate 1: 75 bpm Height: 5'7" SpO2: 98% Weight: 143 lbs 05/25/2015 Blood Pressure 1: 134/78 Code: 8480-6 BMI: 22.6 Code: 31913-0 Heart Rate 1: 74 bpm Height: 5'7" Weight: 144 lbs 11/24/2014 Blood Pressure 1: 130/72 Code: 8480-6 BMI: 23.6 Code: 92770-5 Heart Rate 1: 68 bpm Height: 5'7" [...] Present Encounters Encounter Performer Location Codes Date ([id number]) [id number] EST. PATIENT, LEVEL IV Diagnosis: Essential (primary) hypertension[ICD10: I10] Diagnosis: Mixed hyperlipidemia[ICD10: E78.2] Diagnosis: Other allergic rhinitis[ICD10: J30.89] Diagnosis: Chronic mucoid otitis media, right ear[ICD10: H65.31] Claudia Yen MD, [facility] CPT-4: 22617 02/23/2018 [id number]) 31876 EST. PATIENT, LEVEL III Diagnosis: Essential (primary) hypertension[ICD10: I10] Diagnosis: Other allergic rhinitis[ICD10: J30.89] Claudia Yen MD, [facility] CPT-4: 23253 08/14/2017 [id number]) [id number] EST. PATIENT, LEVEL III Diagnosis: Essential (primary) hypertension[ICD10: I10] Diagnosis: Mixed hyperlipidemia[ICD10: E78.2] Claudia Yen MD, [facility] CPT- 4: 38673 12/18/2016 [id number] 36769 EST. PATIENT, LEVEL III Diagnosis: Essential (primary) hypertension[ICD10: I10] Diagnosis: Mixed hyperlipidemia[ICD10: E78.2] Claudia Yen MD, [facility] CPT- 4: 06328 06/13/2016 ([id number]) 14775 EST. PATIENT, LEVEL IV Diagnosis: Essential (primary) hypertension[ICD10: I10] Diagnosis: Mixed hyperlipidemia[ICD10: E78.2] Diagnosis: Occlusion and stenosis of bilateral carotid arteries[ICD10: I65.23] Claudia Yen MD, [facility] CPT-4: 67850 12/07/2015 ([id number]) 85888 EST. PATIENT, LEVEL IV Diagnosis: Essential (primary) hypertension[ICD10: I10] Diagnosis: Abnormal weight loss[ICD10: R63.4] Diagnosis: Elevated prostate specific antigen [PSA][ICD10: R97.2] Claudia Yen MD, [facility] CPT-4: 17794 05/25/2015 ([id number]) INIT PM E/M NEW PAT 65+ YRS Diagnosis: Routine medical exam[ICD9: V70.0] Amna Yen MD, [facility] CPT- 4: 60075 11/24/2014 Plan of Care Planned Activity Notes [...] Management Completed 02/23/2018 Appointment: Claudia Redd WPtel: [address] [place], [place] [phone] [place] [address] (15 min) Moderate 02/16/2018 Visit Plan: Hypertension - well controlled - continue with current medications, continue with no added salt diet. Pt has been encouraged to exercise daily. The pt has been advised to call the office if there are any acute concerns about change in blood pressure readings at home. Oqgj-rpzkgytpl-dshxsnsbu flonase-call if symptoms do not resolve or if any worse 08/14/2017 Appointment: Claudia Redd WPtel: [address] [place], [place] [phone] [place] [address] (15 min) Moderate 08/14/2017 Patient Education: Patient Medication Summary Completed 08/14/2017 Appointment: Claudia Redd WPtel: [address] [place], [place] [phone] [place] [address] (15 min) Moderate 08/04/2017 Visit Plan: Hypertension [...] Completed 12/18/2016 Appointment: Claudia Redd WPtel: [phone] [phone] (30 min) Complex 12/11/2016 Visit Plan: [...] medications. 06/13/2016 Appointment: Claudia Redd WPtel: [phone] [phone] (15 min) Moderate 06/13/2016 Patient Education: Patient [...] ultrasound 12/07/2015 Appointment: Claudia Redd WPtel: [phone] [phone] [place] (15 min) Moderate 12/07/2015 Patient Education: Patient Medication Summary Completed 12/07/2015 Visit Plan: Hypertension - well controlled - continue with current medications, continue with no added salt diet. Pt has been encouraged to exercise daily. The pt has been advised to call the office if there are any acute concerns about change in blood pressure readings at home. Weight hxwq-ppzuxnxltntvs-vgewdtz has started eating more-recommend increasing calories and [...] renal functioning. 11/24/2014 Appointment: Claudia Redd WPtel: [address] [place], [place] [phone] [place] (S) New Patient 11/24/2014 Patient Education: [...] change in blood pressure readings at home. [id number]-uheztnbjz flonase-call if symptoms do not resolve or if any worse . Hypertension - well controlled - continue with current medications, continue with no added salt diet. Pt has been encouraged to exercise daily. The pt has been advised to call the office if there are any acute concerns about change in blood pressure readings at home. Weight hpxl-kzkaxhfgsqwwv-racnmns has started eating more-recommend increasing calories and [...]
[2018-12-13] MEDS ORDERED: TETANUS,DIPTH,PERTUSS P/F (BOOSTRIX) 0.5 ML VIAL IM ONE (14:45)
[2018-12-13] MEDS ORDERED: LIDOCAINE 1% INJ 20 ML 20 ML VIAL INJ ONE (14:45)
[2018-12-13 14:48] LABS: BASOPHILS % (AUTO) 0 % (0-10); EOSINOPHILS # (AUTO) 0.3 10^3/uL (0.0-0.3); EOSINOPHILS % (AUTO) 5 % (0-10); HEMATOCRIT 40 % (40-54); HEMOGLOBIN 13.4 G/DL (13.3-17.7); LYMPHOCYTES # (AUTO) 1.4 X 10^3 (1.0-4.0); LYMPHOCYTES % (AUTO) 26 % (12-44); MEAN CORPUSCULAR HEMOGLOBIN 31 PG (25-34); MEAN CORPUSCULAR HGB CONC 34 G/DL (32-36); MEAN CORPUSCULAR VOLUME 92 FL (80-99); MEAN PLATELET VOLUME 10.5 FL (7.4-10.4); MONOCYTES # (AUTO) 0.4 X 10^3 (0.0-1.0); MONOCYTES % (AUTO) 7 % (0-12); NEUTROPHILS # (AUTO) 3.4 X 10^3 (1.8-7.8); NEUTROPHILS % (AUTO) 62 % (42-75); PLATELET COUNT 139 10^3/uL (130-400); RED CELL DISTRIBUTION WIDTH 13.2 % (10.0-14.5); WHITE BLOOD COUNT 5.4 10^3/uL (4.3-11.0)
[2018-12-13 15:03] LABS: ALANINE AMINOTRANSFERASE 18 U/L (0-55); ALBUMIN 4.1 GM/DL (3.2-4.5); ALKALINE PHOSPHATASE 67 U/L (40-136); BILIRUBIN,TOTAL 0.8 MG/DL (0.1-1.0); BUN/CREATININE RATIO 22; CALCIUM 9.7 MG/DL (8.5-10.1); CARBON DIOXIDE 22 MMOL/L (21-32); CHLORIDE 110 MMOL/L (98-107); CREATININE SERUM 1.71 MG/DL (0.60-1.30); GFR ESTIMATED 39; GLUCOSE 155 MG/DL (70-105); MAGNESIUM 1.8 MG/DL (1.8-2.4); POTASSIUM 3.9 MMOL/L (3.6-5.0); SODIUM 143 MMOL/L (135-145); TOTAL PROTEIN 6.6 GM/DL (6.4-8.2)
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
[2018-12-13 16:55] LABS: BILIRUBIN,URINE NEGATIVE (NEGATIVE); CLARITY,URINE CLEAR; COLOR,URINE YELLOW; GLUCOSE, URINE (UA) NEGATIVE (NEGATIVE); KETONES,URINE NEGATIVE (NEGATIVE); LEUKOCYTE ESTERASE ,URINE NEGATIVE (NEGATIVE); NITRITE,URINE NEGATIVE (NEGATIVE); PH,URINE 5 (5-9); PROTEIN,URINE NEGATIVE (NEGATIVE); UROBILINOGEN,URINE NORMAL (NORMAL)
[2018-12-13 17:06] LABS: BACTERIA,URINE TRACE /HPF; HYALINE CASTS, URINE 0-2 /LPF; RBC,URINE RARE /HPF; WBC,URINE RARE /HPF
[2018-12-13] MEDS ORDERED: LACTATED RINGERS 1,000 ML IV ONE (17:07)
[2018-12-13] MEDS: LACTATED RINGERS 1,000 ML IV ONE (17:18)
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
[2018-12-13 18:15] VITALS: BP 122/66
== END 2018-12-13 18:15 | disposition home or self-care (01) ==
LOC: EDUNIT# 14:14 → ER 14:15
DX: S37.009A Unspecified injury of unspecified kidney, initial encounter (principal); S01.81XA Laceration without foreign body of other part of head, initial encounter; S61.411A Laceration without foreign body of right hand, initial encounter; S51.012A Laceration without foreign body of left elbow, initial encounter; E86.1 Hypovolemia; I10 Essential (primary) hypertension; E78.00 Pure hypercholesterolemia, unspecified; K21.9 Gastro-esophageal reflux disease without esophagitis; F17.210 Nicotine dependence, cigarettes, uncomplicated; Z95.5 Presence of coronary angioplasty implant and graft; Z79.82 Long term (current) use of aspirin; V47.5XXA Car driver injured in collision with fixed or stationary object in traffic accident, initial encounter
CPT/HCPCS: 36415; 70450; 80053; 80320; 81000; 83735; 84484; 85025; 90715; 93005

== ENCOUNTER 2018-12-20 09:27 | Emergency (ER) | payer OTHER, MEDICARE ==
[~2018-12-20] VITALS: Ht 170.2 cm; Wt 61.2 kg
[2018-12-20 09:48] VITALS: BP 149/78
== END 2018-12-20 09:48 | disposition home or self-care (01) ==
LOC: EDUNIT# 09:27 → ER 09:27
DX: S01.81XD Laceration without foreign body of other part of head, subsequent encounter (principal); X58.XXXD Exposure to other specified factors, subsequent encounter

== ENCOUNTER 2019-02-20 15:35 | Emergency (ER) | payer MEDICARE, OTHER ==
[~2019-02-20] VITALS: Ht 170 cm; Wt 64.0 kg
[2019-02-20 16:33] LABS: ALANINE AMINOTRANSFERASE 27 U/L (0-55); ALBUMIN 4.4 GM/DL (3.2-4.5); ALKALINE PHOSPHATASE 66 U/L (40-136); BILIRUBIN,TOTAL 0.7 MG/DL (0.1-1.0); BUN/CREATININE RATIO 21; CALCIUM 9.6 MG/DL (8.5-10.1); CARBON DIOXIDE 20 MMOL/L (21-32); CHLORIDE 105 MMOL/L (98-107); CREATININE SERUM 1.65 MG/DL (0.60-1.30); GFR ESTIMATED 41; GLUCOSE 94 MG/DL (70-105); POTASSIUM 4.3 MMOL/L (3.6-5.0); SODIUM 139 MMOL/L (135-145); TOTAL PROTEIN 7.2 GM/DL (6.4-8.2)
--- NOTE | 2019-02-20 16:39 | ED General ---
General Chief Complaint: General Problems/Pain Stated Complaint: WEAKNESS/DIARRHEA Nursing Triage Note: GENERALIZED WEAKNESS FOR TWO DAYS ET DIRRHEA X5 TODAY. Nursing Sepsis Screen: No Definite Risk Source of Information: Patient, Family Exam Limitations: No Limitations History of Present Illness Date Seen by Provider: Feb 20, 2019 Time Seen by Provider: 16:35 Initial Comments This 73-year-old white male presents with a complaint of generalized weakness for the last 2 days. Patient has had several episodes of diarrhea. He denies any black or tarry stools. He denies bright red blood in his diarrhea. Patient is status post cardiac stents approximately 15 years ago. The patient had an episode of dehydration 2 months ago. The patient's renal function at that time was imperative that has improved significantly since. The patient denies headache photophobia or stiff neck, he denies fever or chills, chest pain, palpitations, shortness of breath or productive cough, nausea or vomiting, rash or erythema of the skin, change in medications, or sim ilar illness in the family. Allergies and Home Medications Allergies Coded Allergies: No Known Drug Allergies (Unverified , 08/11/10) Home Medications Aspirin 81 Mg Tabec, 162 MG PO DAILY, (Reported) Atenolol 25 Mg Tablet, 25 MG PO DAILY, (Reported) Atorvastatin Calcium 40 Mg Tablet, 40 MG PO HS, (Reported) Multivits,Stress Formula 1 Tab Tablet, 1 TAB PO daily, (Reported) [place]-3/Dha/Epa/Fish Oil 1 Each Capsule, 1,000 MG PO BID, (Reported) Potassium Chloride 10 Meq Tablet.sa, 10 MEQ PO DAILY, (Reported) [folic acid] , daily, (Reported) PT IS UNSURE OF DOSE OF MED Patient Home Medication List Home Medication List Reviewed: Yes Review of Systems Review of Systems Constitutional: No chills, No fever EENTM: No ear pain Respiratory: No cough, No short of breath Cardiovascular: No chest pain Gastrointestinal: diarrhea Genitourinary: no symptoms reported Musculoskeletal: no symptoms reported Skin: no symptoms reported; No rash Psychiatric/Neurological: No Symptoms Reported Hematologic/Lymphatic: No Symptoms Reported Immunological/Allergic: no symptoms reported Past Elwgmwv-Lkrnqu-Nlokhl Hx Past Med/Social Hx: Reviewed Nursing Past Med/Soc Hx Patient Social History Alcohol Use: Denies Use Recreational Drug Use: No Smoking Status: Former Smoker Type Used: Cigarettes Recent Foreign Travel: No Contact w/Someone Who Travel: No Recent Infectious Disease Expo: No Recent Hopitalizations: Yes (5yrs ago last dec stent) Immunizations Up To Date Tetanus Booster (TDap): More than 5yrs Past Medical History Surgeries: Yes Coronary Stent Respiratory: No Cardiac: Yes Coronary Artery Disease, High Cholesterol, Hypertension Neurological: No Reproductive Disorders: No Genitourinary: No Gastrointestinal: Yes Gastroesophageal Reflux Musculoskeletal: No Endocrine: No Cancer: No Psychosocial: No Integumentary: No Blood Disorders: No Physical Exam Vital Signs Vital Signs - First Documented 02/20/19 15:48 Temp 36.6 Pulse 91 Resp 16 B/P (MAP) 106/65 (79) Pulse Ox 99 O2 Delivery Room Air Capillary Refill : Less Than 3 Seconds Height, Weight, BMI Height: 5'7.00" Weight: 135lbs. oz. 61.535483uy; 22.00 BMI Method:Stated General Appearance: No Apparent Distress, WD/WN Eyes: Bilateral Eye Normal Inspection HEENT: TMs Normal, Normal ENT Inspection Neck: Normal Inspection Respiratory: Lungs Clear Cardiovascular: Regular Rate, Rhythm Gastrointestinal: Normal Bowel Sounds, Non Tender, Soft Back: Normal Inspection Extremity: Normal Capillary Refill, Normal Inspection Neurologic/Psychiatric: Alert, Oriented x3, No Motor/Sensory Deficits, Normal Mood/Affect Skin: Normal Color, Warm/Dry; No Rash Procedures/Interventions Suture Size: 5-0 Progress/Results/Core Measures Suspected Sepsis Recent Fever Within 48 Hours: No Infection Criteria Present: Suspected New Infection New/Unexplained Altered Menta: No Sepsis Screen: No Definite Risk SIRS Temperature: Pulse: 91 Respiratory Rate: 16 Laboratory Tests 02/20/19 16:50: White Blood Count 5.8 Blood Pressure 106 /65 Mean: 79 Laboratory Tests 02/20/19 16:00: Creatinine 1.65H, Total Bilirubin 0.7 02/20/19 16:50: INR Comment 0.9, Platelet Count 121L Results/Orders Lab Results Laboratory Tests Test 02/20/19 16:00 02/20/19 16:50 02/20/19 17:50 Range/Units Sodium Level 139 135-145 MMOL/L Potassium Level 4.3 3.6-5.0 MMOL/L Chloride Level 105 98-107 MMOL/L Carbon Dioxide Level 20 L 21-32 MMOL/L Anion Gap 14 5-14 MMOL/L Blood Urea Nitrogen 35 H 7-18 MG/DL Creatinine 1.65 H 0.60-1.30 MG/DL Estimat Glomerular Filtration Rate 41 BUN/Creatinine Ratio 21 Glucose Level 94 70-105 MG/DL Calcium Level 9.6 8.5-10.1 MG/DL Corrected Calcium 9.3 8.5-10.1 MG/DL Magnesium Level 2.0 1.6-2.4 MG/DL Total Bilirubin 0.7 0.1-1.0 MG/DL Aspartate Amino Transf (AST/SGOT) 26 5-34 U/L Alanine Aminotransferase (ALT/SGPT) 27 0-55 U/L Alkaline Phosphatase 66 40-136 U/L Myoglobin 87.5 10.0-92.0 NG/ML Troponin I < 0.028 <0.028 NG/ML Total Protein 7.2 6.4-8.2 GM/DL Albumin 4.4 3.2-4.5 GM/DL White Blood Count 5.8 4.3-11.0 10^3/uL Red Blood Count 4.59 4.35-5.85 10^6/uL Hemoglobin 14.3 13.3-17.7 G/DL Hematocrit 43 40-54 % Mean Corpuscular Volume 93 80-99 FL Mean Corpuscular Hemoglobin 31 25-34 PG Mean Corpuscular Hemoglobin Concent 34 32-36 G/DL Red Cell Distribution Width 13.6 10.0-14.5 % Platelet Count 121 L 130-400 10^3/uL Mean Platelet Volume 10.1 7.4-10.4 FL Neutrophils (%) (Auto) 83 H 42-75 % Lymphocytes (%) (Auto) 9 L 12-44 % Monocytes (%) (Auto) 6 0-12 % Eosinophils (%) (Auto) 2 0-10 % Basophils (%) (Auto) 0 0-10 % Neutrophils # (Auto) 4.8 1.8-7.8 X 10^3 Lymphocytes # (Auto) 0.5 L 1.0-4.0 X 10^3 Monocytes # (Auto) 0.4 0.0-1.0 X 10^3 Eosinophils # (Auto) 0.1 0.0-0.3 10^3/uL Basophils # (Auto) 0.0 0.0-0.1 10^3/uL Prothrombin Time 12.8 12.2-14.7 SEC INR Comment 0.9 0.8-1.4 Activated Partial Thromboplast Time 28 24-35 SEC D-Dimer 0.47 0.00-0.49 UG/ML B-Type Natriuretic Peptide 20.1 <100.0 PG/ML Urine Color YELLOW Urine Clarity CLEAR Urine pH 5 5-9 Urine Specific [place] 1.015 L 1.016-1.022 Urine Protein 1+ H NEGATIVE Urine Glucose (UA) NEGATIVE NEGATIVE Urine Ketones NEGATIVE NEGATIVE Urine Nitrite NEGATIVE NEGATIVE Urine Bilirubin NEGATIVE NEGATIVE Urine Urobilinogen NORMAL NORMAL MG/DL Urine Leukocyte Esterase NEGATIVE NEGATIVE Urine RBC (Auto) NEGATIVE NEGATIVE Urine RBC NONE /HPF Urine WBC NONE /HPF Urine Crystals NONE /LPF Urine Bacteria NEGATIVE /HPF Urine Casts PRESENT /LPF Urine Hyaline Casts 2-5 H /LPF Urine Mucus MODERATE H /LPF Urine Culture Indicated NO My Orders Orders - DANUTA, GLENN Perez MD Cbc With Automated Diff (02/20/19 16:06) Magnesium (02/20/19 16:06) Chest 1 View, Ap/Pa Only (02/20/19 16:06) Ekg Tracing (02/20/19 16:06) Cardiac Profile 1 (02/20/19 16:06) Comprehensive Metabolic Panel (02/20/19 16:06) Myoglobin Serum (02/20/19 16:06) Protime With Inr (02/20/19 16:06) Partial Thromboplastin Time (02/20/19 16:06) O2 (02/20/19 16:06) Monitor-Rhythm Ecg Trace Only (02/20/19 16:06) Lipid Panel (02/21/19 06:00) Ed Iv/Invasive Line Start (02/20/19 16:06) BNP (02/20/19 16:06) Fibrin Degradation Products (02/20/19 16:06) Troponin I (02/20/19 16:06) Ns Iv 1000 Ml (Sodium Chloride 0.9%) (02/20/19 17:15) Ua Culture If Indicated (02/20/19 17:08) Vital Signs/I&O 02/20/19 15:48 Temp 36.6 Pulse 91 Resp 16 B/P (MAP) 106/65 (79) Pulse Ox 99 O2 Delivery Room Air Capillary Refill : Less Than 3 Seconds Blood Pressure Mean: 79 Progress Note : Time: 18:18 Progress Note The patient's laboratory and radiographic evaluation demonstrated no evidence of acute pathology. I discussed findings with patient and spouse. Next I recommended close follow-up with Dr. Yne tomorrow. I asked them to return if any acute problems or questions. Departure Impression Primary Impression: Weakness Additional Impression: Fatigue Qualified Codes: R53.82 - Chronic fatigue, unspecified Disposition: HOME, SELF-CARE Condition: Unchanged Departure-Patient Inst. Decision time for Depature: 18:19 Referrals: ROSS YEN MD, KATHLEEN M MD (PCP/Family) Primary Care Physician Patient Instructions: Fatigue, Generalized Weakness (DC) Add. Discharge Instructions: Close follow-up Dr. Yen. Return if any problems or questions. All discharge instructions reviewed with patient and/or family. Voiced understanding. GLENN TIPTON MD Feb 20, 2019 16:39
[2019-02-20 17:01] LABS: BASOPHILS % (AUTO) 0 % (0-10); EOSINOPHILS # (AUTO) 0.1 10^3/uL (0.0-0.3); EOSINOPHILS % (AUTO) 2 % (0-10); HEMATOCRIT 43 % (40-54); HEMOGLOBIN 14.3 G/DL (13.3-17.7); LYMPHOCYTES # (AUTO) 0.5 X 10^3 (1.0-4.0); LYMPHOCYTES % (AUTO) 9 % (12-44); MEAN CORPUSCULAR HEMOGLOBIN 31 PG (25-34); MEAN CORPUSCULAR HGB CONC 34 G/DL (32-36); MEAN CORPUSCULAR VOLUME 93 FL (80-99); MEAN PLATELET VOLUME 10.1 FL (7.4-10.4); MONOCYTES # (AUTO) 0.4 X 10^3 (0.0-1.0); MONOCYTES % (AUTO) 6 % (0-12); NEUTROPHILS # (AUTO) 4.8 X 10^3 (1.8-7.8); NEUTROPHILS % (AUTO) 83 % (42-75); PLATELET COUNT 121 10^3/uL (130-400); RED CELL DISTRIBUTION WIDTH 13.6 % (10.0-14.5); WHITE BLOOD COUNT 5.8 10^3/uL (4.3-11.0)
[2019-02-20 17:11] LABS: INR 0.9 (0.8-1.4); PROTHROMBIN TIME PATIENT 12.8 SEC (12.2-14.7)
[2019-02-20] MEDS ORDERED: NS IV 1000 ML 1,000 ML IV SCH (17:15)
--- NOTE | 2019-02-20 17:28 | Diagnostic Imaging Report ---
Clinical indications: Patient with weakness and shortness of air. Exam: Portable chest x-ray upright view. Comparisons: None. Findings: Lungs/pleura: There is minimal atelectasis or scarring at both lung bases; otherwise, the lungs are clear. There is no pneumothorax. There is no pleural effusion. Mediastinum: Unremarkable. Pulmonary vasculature: Unremarkable. Heart: Unremarkable. Bones/extrathoracic soft tissue: There are hypertrophic spurs involving the thoracic spine.. Impression: There is minimal bibasilar atelectasis or scarring. There is no radiographic evidence of acute cardiopulmonary process. Dictated by: Dictated on workstation # [id number]
[2019-02-20 17:56] LABS: BILIRUBIN,URINE NEGATIVE (NEGATIVE); CLARITY,URINE CLEAR; COLOR,URINE YELLOW; GLUCOSE, URINE (UA) NEGATIVE (NEGATIVE); KETONES,URINE NEGATIVE (NEGATIVE); LEUKOCYTE ESTERASE ,URINE NEGATIVE (NEGATIVE); NITRITE,URINE NEGATIVE (NEGATIVE); PH,URINE 5 (5-9); PROTEIN,URINE 1+ (NEGATIVE)
[2019-02-20 18:05] LABS: BACTERIA,URINE NEGATIVE /HPF
[2019-02-20 18:32] VITALS: BP 116/54
== END 2019-02-20 18:29 | disposition home or self-care (01) ==
LOC: EDUNIT# 15:35 → ER 15:36
DX: R53.1 Weakness (principal); R53.83 Other fatigue; I10 Essential (primary) hypertension; E78.00 Pure hypercholesterolemia, unspecified; I25.10 Atherosclerotic heart disease of native coronary artery without angina pectoris; K21.9 Gastro-esophageal reflux disease without esophagitis; Z79.82 Long term (current) use of aspirin; Z87.891 Personal history of nicotine dependence; Z95.5 Presence of coronary angioplasty implant and graft
CPT/HCPCS: 36415; 71045; 80053; 81000; 83735; 83874; 83880; 84484; 85025; 85379; 85610; 85730; 93005; 93041

== ENCOUNTER 2020-08-13 22:34 | Emergency (ER) | payer MEDICARE, OTHER ==
[~2020-08-13] VITALS: Ht 170 cm; Wt 66.2 kg
[2020-08-13 22:57] LABS: BILIRUBIN,URINE NEGATIVE (NEGATIVE); CLARITY,URINE CLEAR; COLOR,URINE YELLOW; GLUCOSE, URINE (UA) NEGATIVE (NEGATIVE); KETONES,URINE TRACE (NEGATIVE); LEUKOCYTE ESTERASE ,URINE NEGATIVE (NEGATIVE); NITRITE,URINE NEGATIVE (NEGATIVE); PH,URINE 5.5 (5-9); PROTEIN,URINE NEGATIVE (NEGATIVE)
[2020-08-13 23:06] LABS: BACTERIA,URINE NEGATIVE /HPF; HYALINE CASTS, URINE RARE /LPF; RBC,URINE RARE /HPF; SQUAMOUS EPITHELIAL CELL,UR RARE /HPF; WBC,URINE RARE /HPF
--- NOTE | 2020-08-14 00:35 | ED Back Pain ---
General Chief Complaint: Back Problems Stated Complaint: BACK PAIN/SIDE PAIN Nursing Triage Note: Patient ambulatory to ER with spouse with c/o left flank pain radiating into the left lower abdomen and down the left anterior thigh. Patient states this pain has been present x 2 weeks. Patient states he was out mowing his grass this morning when he had a near syncope episode. He states EMS was called but he recovered quickly and felt much better so refused transport. Nursing Sepsis Screen: No Definite Risk Source of Information: Patient Exam Limitations: No Limitations History of Present Illness Date Seen by Provider: Aug 14, 2020 Time Seen by Provider: 00:20 Initial Comments Patient presents ER by private conveyance with his and chief complaint that for the past 3 weeks he has had low back pain in the left radiating around to his left groin. Is only progressively gotten worse. No falls or traumatic incidents. He has a history of shingles but has had no rash or itching. No painful urination. No history of kidney stones but he was afraid it might be a kidney stone. No fevers chills nausea vomiting diarrhea cough shortness of air. When he came in from working in the yard this morning his said that his blood pressure was 53/30 on her home blood pressure cuff. She summonsed an a mbulance and when they arrived the blood pressure was normal. No saddle anesthesia. He does have some burning pain that occasionally radiates down his left buttock residential down his left thigh. No imaging of his low back. No history of sciatica. Allergies and Home Medications Allergies Coded Allergies: No Known Drug Allergies (Unverified , 08/11/10) Home Medications Aspirin 81 Mg Tabec, 162 MG PO DAILY, (Reported) Atenolol 25 Mg Tablet, 25 MG PO DAILY, (Reported) Atorvastatin Calcium 40 Mg Tablet, 40 MG PO HS, (Reported) Hydrocodone/Acetaminophen 1 Each Tablet, 1 TAB PO Q6H PRN for PAIN-MODERATE (5- 7) Prescribed by: MURIEL MCNALLY on 08/14/20 0148 Multivits,Stress Formula 1 Tab Tablet, 1 TAB PO daily, (Reported) [place]-3/Dha/Epa/Fish Oil 1 Each Capsule, 1,000 MG PO BID, (Reported) Potassium Chloride 10 Meq Tablet.sa, 10 MEQ PO DAILY, (Reported) [folic acid] , daily, (Reported) PT IS UNSURE OF DOSE OF MED Patient Home Medication List Home Medication List Reviewed: Yes Review of Systems Constitutional: No chills, No diaphoresis EENTM: No ear discharge, No ear pain Respiratory: No cough, No short of breath Cardiovascular: No chest pain, No edema Gastrointestinal: No abdominal pain, No nausea, No vomiting Genitourinary: No discharge, No dysuria Musculoskeletal: back pain; No joint pain All Other Systems Reviewed Negative Unless Noted: Yes Past Ycchzcs-Covvkk-Nwqvsz Hx Patient Social History Alcohol Use: Denies Use Smoking Status: Former Smoker Type Used: Cigarettes 2nd Hand Smoke Exposure: No Recent Infectious Disease Expo: No Recent Hopitalizations: Yes (5yrs ago last dec stent) Immunizations Up To Date Tetanus Booster (TDap): More than 5yrs Past Medical History Surgeries: Yes Coronary Stent Respiratory: No Cardiac: Yes Coronary Artery Disease, High Cholesterol, Hypertension Neurological: No Reproductive Disorders: No Genitourinary: Yes Prostate Problems Gastrointestinal: Yes Gastroesophageal Reflux Musculoskeletal: No Endocrine: No HEENT: No Cancer: No Psychosocial: No Integumentary: No Blood Disorders: No Physical Exam Vital Signs Vital Signs - First Documented 08/13/20 23:06 Temp 37.0 Pulse 72 Resp 16 B/P (MAP) 135/80 (98) Pulse Ox 99 O2 Delivery Room Air Capillary Refill : Less Than 3 Seconds Height, Weight, BMI Height: 5'7.00" Weight: 135lbs. oz. [id number]; 22.00 BMI Method:Stated General Appearance: No Apparent Distress, WD/WN, Anxious HEENT: PERRL/EOMI, Pharynx Normal, Moist Mucous Membranes Neck: Full Range of Motion, Normal Inspection Cardiovascular: Regular Rate, Rhythm, No Edema, Normal Peripheral Pulses Respiratory: Lungs Clear, Normal Breath Sounds, No Accessory Muscle Use, No Respiratory Distress Gastrointestinal: Normal Bowel Sounds, No Organomegaly, Non Tender, Soft Genital/Rectal: Normal Genital Exam, Other (No inguinal hernia left groin.) Back: No Vertebral Tenderness, Muscle Spasm (Left-sided paravertebral tenderness especially over L5-S1 facet joint which reproduces pain radiating down his buttock.) Extremity: Normal Capillary Refill, Normal Inspection Neurologic/Psychiatric: Alert, Oriented x3, No Motor/Sensory Deficits Procedures/Interventions Suture Size: 5-0 Progress Intra-articular injection of the L5-S1 facet joint on the left lumbar spine. Using an admixture of 1 cc of 40 mg/mL Depo-Medrol, 1-1/2 cc of 1% lidocaine and 1-1/2 cc of half percent Marcaine with no epinephrine. The's point of maximal tenderness was palpated and using a 25-gauge 1-1/2 inch needle and Z track method after thoroughly cleansing the skin with chlorhexidine and alcohol we put the needle in the L5-S1 facet joint and infiltrated a small amount of the admixture. We then put the rest of it around the area and the soft tissue. The patient tolerated procedure well. The skin was treated with a bandage. Progress/Results/Core Measures Results/Orders Lab Results Laboratory Tests Test 08/13/20 22:40 08/14/20 00:41 Range/Units Urine Color YELLOW Urine Clarity CLEAR Urine pH 5.5 5-9 Urine Specific [place] 1.010 L 1.016-1.022 Urine Protein NEGATIVE NEGATIVE Urine Glucose (UA) NEGATIVE NEGATIVE Urine Ketones TRACE H NEGATIVE Urine Nitrite NEGATIVE NEGATIVE Urine Bilirubin NEGATIVE NEGATIVE Urine Urobilinogen 0.2 < = 1.0 MG/DL Urine Leukocyte Esterase NEGATIVE NEGATIVE Urine RBC (Auto) TRACE-I NEGATIVE Urine RBC RARE /HPF Urine WBC RARE /HPF Urine Squamous Epithelial Cells RARE /HPF Urine Crystals NONE /LPF Urine Bacteria NEGATIVE /HPF Urine Casts PRESENT /LPF Urine Hyaline Casts RARE /LPF Urine Mucus NEGATIVE /LPF Urine Culture Indicated NO White Blood Count 5.5 4.3-11.0 10^3/uL Red Blood Count 4.54 4.30-5.52 10^6/uL Hemoglobin 14.0 13.3-17.7 g/dL Hematocrit 42 40-54 % Mean Corpuscular Volume 93 80-99 fL Mean Corpuscular Hemoglobin 31 25-34 pg Mean Corpuscular Hemoglobin Concent 33 32-36 g/dL Red Cell Distribution Width 12.8 10.0-14.5 % Platelet Count 182 130-400 10^3/uL Mean Platelet Volume 9.4 9.0-12.2 fL Immature Granulocyte % (Auto) 0 % Neutrophils (%) (Auto) 58 42-75 % Lymphocytes (%) (Auto) 29 12-44 % Monocytes (%) (Auto) 8 0-12 % Eosinophils (%) (Auto) 4 0-10 % Basophils (%) (Auto) 0 0-10 % Neutrophils # (Auto) 3.2 1.8-7.8 10^3/uL Lymphocytes # (Auto) 1.6 1.0-4.0 10^3/uL Monocytes # (Auto) 0.4 0.0-1.0 10^3/uL Eosinophils # (Auto) 0.2 0.0-0.3 10^3/uL Basophils # (Auto) 0.0 0.0-0.1 10^3/uL Immature Granulocyte # (Auto) 0.0 0.0-0.1 10^3/uL Sodium Level 139 135-145 MMOL/L Potassium Level 3.9 3.6-5.0 MMOL/L Chloride Level 104 98-107 MMOL/L Carbon Dioxide Level 20 L 21-32 MMOL/L Anion Gap 15 H 5-14 MMOL/L Blood Urea Nitrogen 28 H 7-18 MG/DL Creatinine 1.50 H 0.60-1.30 MG/DL Estimat Glomerular Filtration Rate 46 BUN/Creatinine Ratio 19 Glucose Level 86 70-105 MG/DL Calcium Level 9.5 8.5-10.1 MG/DL Corrected Calcium 9.3 8.5-10.1 MG/DL Total Bilirubin 0.6 0.1-1.0 MG/DL Aspartate Amino Transf (AST/SGOT) 21 5-34 U/L Alanine Aminotransferase (ALT/SGPT) 23 0-55 U/L Alkaline Phosphatase 58 40-136 U/L Total Protein 7.1 6.4-8.2 GM/DL Albumin 4.3 3.2-4.5 GM/DL My Orders Orders - MURIEL MCNALLY Ua Culture If Indicated (08/13/20 22:53) Orthostatic Vital Signs (Adult (08/14/20 00:29) Cbc With Automated Diff (08/14/20 00:29) Comprehensive Metabolic Panel (08/14/20 00:29) Ct Abd/Pelvis Wo(Kidney Stone) (08/14/20 00:29) Ed Iv/Invasive Line Start (08/14/20 00:29) Methylprednisolone Acetate Inj (Depo-Med (08/14/20 01:45) Rx-Hydrocodone/Apap 5-325 Mg (Rx-Vicodin (08/14/20 02:00) Medications Given in ED Current Medications Medications Dose Ordered Sig/[place] Route Start Time Stop Time Status Last Admin Dose Admin Acetaminophen/ Hydrocodone Bitart 1 ea Q6H PRN PO 08/14/20 02:00 08/14/20 02:06 DC 08/14/20 01:56 1 EA Methylprednisolone Acetate 40 mg ONCE ONCE IM 08/14/20 01:45 08/14/20 01:46 DC 08/14/20 01:46 40 MG Vital Signs/I&O 08/13/20 08/14/20 08/14/20 23:06 00:37 02:04 Temp 37.0 Pulse 72 72 71 83 86 Resp 16 16 B/P (MAP) 135/80 (98) 130/74 (92) 116/77 134/81 (98) 138/79 (98) Pulse Ox 99 99 O2 Delivery Room Air Room Air Blood Pressure Mean: 98 Progress Progress Note : Time: 00:32 Progress Note Strongly suspect musculoskeletal lumbago with sciatica on the left side however because of the concerns of blood pressure issues today which are most likely from blood pressure cuff error. Plan to get some orthostatic vital signs check some basic labs and get a CT without IV contrast looking to rule out kidney stones and we can also examine his low back. His remarks that he has an elevated PSA so pathologic fracture is partially in the differential Diagnostic Imaging Diagonstic Imaging: CT Plain Films/CT/US/NM/MRI: abdomen, pelvis Comments Multiple rounded irregular fluid density structures involving both kidneys with the largest noted involving the superior pole of the right kidney measuring 3.6 cm. Detailed evaluation is limited without contrast. At least one of the intraparenchymal lesions demonstrates dependent crescentic calcification measuring 2 to 5 mm. No hydronephrosis or obstructive nephrolithiasis identified. No definite ureteral stones. No bladder calcifications. Suspected cortical and intraparenchymal renal cysts with with the suspected left renal cyst demonstrating marginal calcification or layering intraluminal susy cifications. However on nonemergent diagnostic evaluation of the kidneys is recommended for further diagnostic evaluation. Evaluation of the bowel mucosa slightly limited without contrast; however no definite focal asymmetry suggested. No evidence for bowel obstruction. No free intraperitoneal fluid or pneumoperitoneum. Prostatic hypertrophy with some impression on the inferior aspect of the bladder. No radiographic evidence for significant urinary obstruction. Reviewed: Reviewed by Me Departure Impression Primary Impression: Lumbago with sciatica, left side Qualified Codes: M54.42 - Lumbago with sciatica, left side Additional Impression: Renal cyst, acquired Disposition: HOME, SELF-CARE Condition: Stable Departure-Patient Inst. Decision time for Depature: 01:45 Referrals: ROSS ANDRADE MD (PCP/Family) Primary Care Physician Patient Instructions: Sciatica (DC), Sciatica Exercises, Low Back Pain ED Add. Discharge Instructions: Drink plenty of fluids. Keep your follow-up appointment with your doctor and discuss the incidental cysts seen on your kidney that were recommended to be worked up outpatient by radiology. Tylenol 1000 mg every 8 hours as necessary for pain. Topical cream such as icy hot, Biofreeze etc. Heating pads can be helpful for pain. Hydrocodone 1 tablet every 6 hours as necessary for severe, breakthrough pain keeping you from being functional. Hydrocodone will cause drowsiness and constipation. Call [facility] at [phone] and request a evaluation. The steroid should kick in over the next 12 to 24 hours and last 5 to 7 days. All discharge instructions reviewed with patient and/or family. Voiced understanding. Scripts Hydrocodone/Acetaminophen (Hydrocodone-Acetamin 5-325 mg) 1 Each Tablet 1 TAB PO Q6H PRN for PAIN-MODERATE (5-7), #8 TAB 0 Refills Prov: MURIEL MCNALLY 08/14/20 Copy Copies To 1: ROSS ANDRADE MD, TITUS J Aug 14, 2020 00:35
[2020-08-14 00:37] VITALS: BP_SYST 130; BP_SYST 134; BP_SYST 138; BP_DIAS 74; BP_DIAS 79; BP_DIAS 81
[2020-08-14 00:54] LABS: BASOPHILS % (AUTO) 0 % (0-10); EOSINOPHILS # (AUTO) 0.2 10^3/uL (0.0-0.3); EOSINOPHILS % (AUTO) 4 % (0-10); HEMATOCRIT 42 % (40-54); LYMPHOCYTES # (AUTO) 1.6 10^3/uL (1.0-4.0); LYMPHOCYTES % (AUTO) 29 % (12-44); MEAN CORPUSCULAR HEMOGLOBIN 31 pg (25-34); MEAN CORPUSCULAR HGB CONC 33 g/dL (32-36); MEAN CORPUSCULAR VOLUME 93 fL (80-99); MEAN PLATELET VOLUME 9.4 fL (9.0-12.2); MONOCYTES # (AUTO) 0.4 10^3/uL (0.0-1.0); MONOCYTES % (AUTO) 8 % (0-12); NEUTROPHILS # (AUTO) 3.2 10^3/uL (1.8-7.8); NEUTROPHILS % (AUTO) 58 % (42-75); PLATELET COUNT 182 10^3/uL (130-400); WHITE BLOOD COUNT 5.5 10^3/uL (4.3-11.0)
[2020-08-14 00:59] LABS: ALBUMIN 4.3 GM/DL (3.2-4.5); POTASSIUM 3.9 MMOL/L (3.6-5.0)
[2020-08-14 01:00] LABS: CALCIUM 9.5 MG/DL (8.5-10.1)
[2020-08-14 01:02] LABS: TOTAL PROTEIN 7.1 GM/DL (6.4-8.2)
[2020-08-14 01:03] LABS: BILIRUBIN,TOTAL 0.6 MG/DL (0.1-1.0)
[2020-08-14 01:05] LABS: CREATININE SERUM 1.5 MG/DL (0.60-1.30)
[2020-08-14] MEDS ORDERED: methylPREDNISolone 40 MG/ML (DEPO MEDROL) VIAL IM ONE (01:45)
[2020-08-14] MEDS ORDERED: ACHD5005 PO (01:48)
[2020-08-14] MEDS ORDERED: RX-HYDROCODONE/APAP 5/325 MG #4 TAB PK PO PRN (02:00)
[2020-08-14 02:04] VITALS: BP 116/77
--- NOTE | 2020-08-14 05:38 | Diagnostic Imaging Report ---
PROCEDURE: CT urinary tract, rule out kidney stone. TECHNIQUE: Multiple contiguous axial images were obtained through the abdomen and pelvis without the use of intravenous contrast. Auto Exposure Controls were utilized during the CT exam to meet ALARA standards for radiation dose reduction. INDICATION: Left flank pain. FINDINGS: Reportedly, there is clinical concern regarding obstruction of the left collecting system. On this study, there is no evidence for urolithiasis and the kidneys do not appear to be obstructed. There are multiple rounded areas of low density associated with both kidneys. The largest of these along the superior pole of the right kidney measures approximately 2.9 x 4.5 cm. This low density area has a lobulated appearance. There is also a crescentic calcification along the inferior margin of the rounded area of low density in the midportion of left kidney. I suspect these findings are related to cysts. Even so, I would recommend that either a follow-up CT abdomen/pelvis exam with intravenous contrast or ultrasound be performed for further study. There is no acute abnormality of the abdomen or pelvis noted otherwise. The liver, spleen, pancreas, adrenals, gallbladder, aorta and inferior vena cava and stomach show no sign of an acute abnormality. There is no pelvic mass or free fluid collection evident. The prostate gland is mildly enlarged. The urinary bladder is grossly unremarkable. The appendix was visualized and is not abnormally thickened. The bone windows show no sign of a fracture or destructive lesion. There is degenerative disc and bony disease at L5-S1. The lung bases are clear. IMPRESSION: 1. There is no evidence for urolithiasis and the kidneys do not appear obstructed. 2. The rounded areas of low density associated with kidneys may represent cysts. Recommendations as above. 3. There is no acute abnormality of the abdomen or pelvis noted otherwise. 4. The prostate gland is mildly enlarged. 5. I agree with the [employer] interpretation of this exam. Dictated by: Dictated on workstation # [id number]
== END 2020-08-14 02:05 | disposition home or self-care (01) ==
LOC: EDUNIT# 22:34 → ER 22:36
DX: M54.42 Lumbago with sciatica, left side (principal); N28.1 Cyst of kidney, acquired; I10 Essential (primary) hypertension; E78.00 Pure hypercholesterolemia, unspecified; Z79.82 Long term (current) use of aspirin; Z95.5 Presence of coronary angioplasty implant and graft
CPT/HCPCS: 36415; 74176; 80053; 81000; 85025; 96372

== ENCOUNTER 2020-08-24 10:01 | Outpatient (RCR) | payer MEDICARE, OTHER ==
[~2020-08-24 10:01] MED LIST changes: +ACHD5005 PO
== END 2020-09-10 13:51 | disposition home or self-care (01) ==
PROVIDERS: ATTEND Family Medicine
DX: M54.42 Lumbago with sciatica, left side (principal)
CPT/HCPCS: 97110; 97163; G0283

== ENCOUNTER → 2020-09-06 | Outpatient (CLI) | payer MEDICARE, OTHER ==
--- NOTE | 2020-09-06 12:50 | Diagnostic Imaging Report ---
PROCEDURE: MRI lumbar spine. TECHNIQUE: Multiplanar, multisequence MRI of the lumbar spine was performed without contrast. DATE: September 06, 2020. COMPARISON: CT abdomen pelvis August 14, 2020. INDICATION: 75-year-old male, low back pain. FINDINGS: There is normal lumbosacral spine alignment. There is no evidence of a diffuse marrow infiltrating or replacing process. There is no compression deformity or other acute fracture. There is no visualized pars interarticularis defect. There are Modic endplate degenerative changes adjacent to the L2-L3 and L5-S1 disc spaces. There is severe disc height loss at L5-S1 and mild to moderate disc height loss at L2-L3. The visualized portions of the spinal cord are unremarkable in signal. The conus medullaris terminates at the level of L1-L2. There is a perineural cyst at the level of L1-L2 on the right measuring 7 x 10 mm in size. There are T2 hyperintense renal lesions bilaterally not well characterized on this exam. L1-L2: There is no disc bulge. The facet joints and ligamentum flavum are unremarkable. There is no foraminal narrowing. There is no spinal canal stenosis. L2-L3: There is diffuse disc bulge. There is moderate narrowing of the left lateral recess. The facet joints and ligamentum flavum are unremarkable. There is moderate bilateral foraminal narrowing. There is no high-grade spinal canal stenosis. L3-L4: There is no disc bulge. The facet joints and ligamentum flavum are unremarkable. There is no foraminal narrowing. There is no spinal canal stenosis. L4-L5: There is no disc bulge. The facet joints and ligamentum flavum are unremarkable. There is no foraminal narrowing. There is no spinal canal stenosis. L5-S1: There is diffuse disc bulge. The facet joints and ligamentum flavum are unremarkable. There is severe bilateral foraminal narrowing. There is no spinal canal stenosis. IMPRESSION: 1. 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 Dictated by: Dictated on workstation # [id number]
== END ==
LOC: RAD 09:47
PROVIDERS: ATTEND Physician Assistant
DX: M48.061 Spinal stenosis, lumbar region without neurogenic claudication (principal); M47.27 Other spondylosis with radiculopathy, lumbosacral region; M51.17 Intervertebral disc disorders with radiculopathy, lumbosacral region
CPT/HCPCS: 72148

== ENCOUNTER 2020-10-05 14:22 | Outpatient (RCR) | payer MEDICARE, OTHER | END 2020-10-05 14:49 | disposition home or self-care (01) | PROVIDERS: ATTEND Orthopaedic Surgery | DX: M54.16 Radiculopathy, lumbar region (principal) ==